=== PATIENT | male | born 1945 | race Caucasian/White ===

== ENCOUNTER → 2016-11-11 | Outpatient (CLI) | payer OTHER ==
[~2016-11-11] MED LIST: ASPCH81X PO; ASPIRIN PO; ATEN50TA8 PO; ATOR-54 PO; ATORVASTATIN PO; COEN1CAP7 PO; COENCAP9; GLUC250C PO; GLUCTAB7 PO; IBUP-1050 PO; ISOS30TA35 PO; ISOS30TA51 PO; LISI-725 PO; LISIPOW PO; METF-383 PO; METFORMIN PO; OMEG10007 PO
--- NOTE | 2016-11-11 14:04 | DIAGNOSTIC IMAGING REPORT ---
CHEST 2 VIEWS ROUTINE CLINICAL HISTORY: WHEEZING R06.2;TOBACCO USE Z72.0 COMPARISON STUDY: 02/08/2015 FINDINGS: There are postsurgical changes of a midline sternotomy. The heart is normal in size. There is no failure. There is no focal pulmonary consolidation. There are no pleural effusions.[ IMPRESSION: No active disease in the chest. Electronically signed by: Hao Craig M.D. 11/11/2016 2:02 PM Dictated Date/Time: 11/11/2016 2:01 PM
== END | disposition home or self-care (01) ==
LOC: C.RAD 13:30
PROVIDERS: ATTEND Family Medicine
DX: R06.2 Wheezing (principal); Z72.0 Tobacco use

== ENCOUNTER → 2016-12-09 | Day surgery (SDC) | payer OTHER ==
[2016-12-02 13:26] VITALS: Ht 172.7 cm; Wt 78.6 kg
[~2016-12-09] VITALS: Ht 172.7 cm; Wt 78.6 kg
[~2016-12-09] MED LIST changes: -ASPIRIN PO; -ATORVASTATIN PO; -COENCAP9; -GLUC250C PO; -ISOS30TA51 PO; +LIDOCAINE HCL 2% 2 ML VIAL (20MG/ML) ONE; -LISIPOW PO; -METFORMIN PO; +MIDAZOLAM HCL 1 MG/ML 2ML VIAL ONE; +ONDANSETRON INJ 2 MG/ML 2 ML VIAL ONE; +PROPOFOL IV EMULSION 10 MG/ML 20 ML VIAL IV ONE; +SODIUM CHLORIDE 0.9% 500ML 500 ML IV ONE
[2016-12-09 09:28] VITALS: TEMP 36.7
--- NOTE | 2016-12-09 09:37 | Endo History and Physical ---
History & Physical Date of Service: Dec 09, 2016. Chief Complaint: Screening Referring Physician: Miranda Esquivel History of Present Illness 71 yo CM who presents for screening colonoscopy. Past Medical History Diabetes, Hypertension Past Surgical History Hx Cardiac Surgery: Yes (HEART CATH-NO STENTS, CABG-3 VESSELS) Hx Internal Defibrillator: No Hx Pacemaker: No Hx Abdominal Surgery: No Hx of Implantable Prosthesis: No Hx Post-Op Nausea and Vomiting: No Hx Cancer Surgery: Yes (TOTAL PROSTATECTOMY) Hx Thoracic Surgery: No Hx Orthopedic: No Hx Urinary Tract Surgery: No Family History None Social History Smoking Status: Current Every Day Smoker Hx Substance Use: No Hx Alcohol Use: Yes (DAILY>TOTAL OF 3 SHOTS) Allergies Coded Allergies: Ragweed (Verified Allergy, Mild, Unknown, 12/04/15) Grass (Verified Allergy, Unknown, Unknown, 12/04/15) NO KNOWN DRUG ALLERGIES (Verified Allergy, Unknown, ., 12/02/16) Current Medications Reported Home Medications Medications Dose Route/Sig Max Daily Dose Days Date Category Imdur Ext Rel (Isosorbide Mononitrate) 30 Mg Tabcr 1 Tab PO QAM 12/09/16 Reported Glucophage (Metformin Hcl) 850 Mg Tab 850 Mg PO QAM 12/02/16 Reported Zestril (Lisinopril) 20 Mg Tab 20 Mg PO QAM 12/02/16 Reported Glucosamine Chondroitin (Kqtyqoumunv-Cvbbeaqqyfr-Blk C-) 1 Tab Tab 1 Tab PO QAM 12/02/16 Reported [place]-3 (Fish Oil) 1 Ea Cap 1 Cap PO QAM 12/02/16 Reported Coq10 (Coenzyme Q10 (Ubidecarenone)) 200 Mg Cap 1 Cap PO QAM 12/02/16 Reported Lipitor (Atorvastatin) 20 Mg Tab 20 Mg PO QAM 12/02/16 Reported Tenormin (Atenolol) 50 Mg Tab 50 Mg PO QAM 12/02/16 Reported Aspirin Chewable (Aspirin) 81 Mg Chew 81 Mg PO QAM 12/02/16 Reported Advil (Ibuprofen) 200 Mg Tab 200-600 Mg PO Q4H PRN 12/02/16 Reported Vital Signs Weight (Kilograms): 78.64 Height (Feet): 5 Height (Inches): 8 Date Time Temp Pulse Resp B/P Pulse Ox O2 Delivery O2 Flow Rate FiO2 12/09/16 09:28 36.7 55 20 132/64 96 Room Air Physical Exam General Appearance: WD/WN, no apparent distress Respiratory/Chest: Auscultation: breath sounds normal Cardiovascular: Heart Auscultation: RRR Abdomen: Bowel Sounds: normal Inspection & Palpation: soft, non-distended, no tenderness, guarding & rebound Assessment and Plan Assessment: 71 yo CM who presents for screening colonoscopy. Plan: Proceed with colonoscopy.
--- NOTE | 2016-12-09 10:13 | GI REPORT ---
Procedure Date: 12/09/2016 9:39 AM Procedure: Colonoscopy Indications: Screening for colorectal malignant neoplasm Medicines: Monitored Anesthesia Care Complications: No immediate complications. Estimated Blood Loss: Estimated blood loss: none. Procedure: Pre-Anesthesia Assessment: - Prior to the procedure, a History and Physical was performed, and patient medications and allergies were reviewed. The patient's tolerance of previous anesthesia was also reviewed. The risks and benefits of the procedure and the sedation options and risks were discussed with the patient. All questions were answered, and informed consent was obtained. Prior Anticoagulants: The patient has taken aspirin, last dose was 1 day prior to procedure. ASA Grade Assessment: III - A patient with severe systemic disease. After reviewing the risks and benefits, the patient was deemed in satisfactory condition to undergo the procedure. After I obtained informed consent, the scope was passed under direct vision. Throughout the procedure, the patient's blood pressure, pulse, and oxygen saturations were monitored continuously. The On-site loaner was introduced through the anus and advanced to the terminal ileum. The colonoscopy was performed without difficulty. The patient tolerated the procedure well. The quality of the bowel preparation was good. The terminal ileum, ileocecal valve, appendiceal orifice, and rectum were photographed. Findings: Three sessile polyps were found in the rectum, in the descending colon and in the transverse colon. The polyps were 5 to 10 mm in size. These polyps were removed with a hot snare. Resection was complete, but the polyp tissue was only partially retrieved. To prevent bleeding after the polypectomy, one hemostatic clip was successfully placed (MR conditional). There was no bleeding at the end of the procedure. Multiple small-mouthed diverticula were found in the entire colon. Non-bleeding internal hemorrhoids were found during retroflexion. The hemorrhoids were small. Impression: - Three 5 to 10 mm polyps in the rectum, in the descending colon and in the transverse colon, removed with a hot snare. Complete resection. Partial retrieval. Clip (MR conditional) was placed. - Diverticulosis in the entire examined colon. - Non-bleeding internal hemorrhoids. Recommendation: - Resume previous diet. - Continue present medications. - Repeat colonoscopy for surveillance based on pathology results. - Return to primary care physician as previously scheduled. Cihdi Reese DO 12/09/2016 10:11:57 AM This report has been signed electronically. Note Initiated On: 12/09/2016 9:39 AM I attest to the content of the Intraoperative Record and orders documented therein, exceptions below
[2016-12-09 10:40] VITALS: BP 137/63; PULSE 58; O2SAT 96
--- NOTE | 2016-12-09 10:51 | Anesthesiology Progress Note ---
Anesthesia Post Op Note Date & Time Dec 09, 2016 at 10:50 Vital Signs Pain Intensity: 0 Vital Signs Past 12 Hours Date Time Temp Pulse Resp B/P Pulse Ox O2 Delivery O2 Flow Rate FiO2 12/09/16 10:40 58 20 137/63 96 Room Air 12/09/16 10:25 56 20 122/64 96 Room Air 12/09/16 10:10 53 20 112/54 95 Room Air 12/09/16 09:28 36.7 55 20 132/64 96 Room Air Notes Mental Status: alert / awake / arousable, participated in evaluation Pt Amnestic to Procedure: Yes Nausea / Vomiting: adequately controlled Pain: adequately controlled Airway Patency, RR, SpO2: stable & adequate BP & HR: stable & adequate Hydration State: stable & adequate Anesthetic Complications: no major complications apparent
--- NOTE | 2016-12-09 10:56 | Discharge Instructions ---
Endoscopy Patient Instructions Date / Procedure(s) Performed Dec 09, 2016. Colonoscopy Allergy Information Coded Allergies: Ragweed (Verified Allergy, Mild, Unknown, 12/04/15) Grass (Verified Allergy, Unknown, Unknown, 12/04/15) NO KNOWN DRUG ALLERGIES (Verified Allergy, Unknown, ., 12/02/16) Discharge Date / Findings Dec 09, 2016. Colon polyps Diverticulosis Internal hemorrhoids Medication Instructions Stopped Medication(s): mETFORMIN OK to resume all medications today as prescribed. Reported Home Medications Medications Dose Route/Sig Max Daily Dose Days Date Category Imdur Ext Rel (Isosorbide Mononitrate) 30 Mg Tabcr 1 Tab PO QAM 12/09/16 Reported Glucophage (Metformin Hcl) 850 Mg Tab 850 Mg PO QAM 12/02/16 Reported Zestril (Lisinopril) 20 Mg Tab 20 Mg PO QAM 12/02/16 Reported Glucosamine Chondroitin (Vrpobmmtigw-Xkjlahsulik-Yiv C-) 1 Tab Tab 1 Tab PO QAM 12/02/16 Reported [place]-3 (Fish Oil) 1 Ea Cap 1 Cap PO QAM 12/02/16 Reported Coq10 (Coenzyme Q10 (Ubidecarenone)) 200 Mg Cap 1 Cap PO QAM 12/02/16 Reported Lipitor (Atorvastatin) 20 Mg Tab 20 Mg PO QAM 12/02/16 Reported Tenormin (Atenolol) 50 Mg Tab 50 Mg PO QAM 12/02/16 Reported Aspirin Chewable (Aspirin) 81 Mg Chew 81 Mg PO QAM 12/02/16 Reported Advil (Ibuprofen) 200 Mg Tab 200-600 Mg PO Q4H PRN 12/02/16 Reported Provider Instructions Activity Restrictions - No exercising or heavy lifting for 24 hours. - Do not drink alcohol the day of the procedure. - Do not drive a car or operate machinery until the day after the procedure. - Do not make any important decisions or sign important papers in 24 hours after the procedure. Following Day: - Return to full activity which may include returning to work/school. Diet Start your diet with liquids and light foods (jello, soup, juice, toast). Then eat your usual diet if not nauseated. Treatment For Common After Affects For mild abdominal pain, bloating, or excessive gas: - Rest - Eat lightly - Lie on right side Follow-Up Information Follow-up with Miranda Esquivel as scheduled Anesthesia Information What You Should Know You have had a procedure that required some medicine to reduce anxiety and discomfort. This treatment is called moderate sedation. After receiving the treatment, you may be sleepy, but you will be able to breathe on your own. The effects of the treatment may last for several hours. Follow these instructions along with Activity/Diet recommendations noted above: * Do NOT do anything where dizziness or clumsiness would be dangerous. * Rest quietly at home today, then you can be up and about tomorrow. * Have a responsible person stay with you the rest of today. * You may have had an I.V. today. If so, you may take the dressing off later today. Recommendations Call your doctor if: * Trouble breathing * Continuous vomiting for more than 24 hours * Temperature above 101 degrees * Severe abdominal pain or bloating * Pain not relieved by pain medicine ordered * There is increased drainage or redness from any incision * A large amount of rectal bleeding greater than 2-3 tablespoons. (If you had a polyp/s removed or have hemorrhoids, a small amount of blood - from the rectum is to be expected.) * You have any unanswered questions or concerns. IN THE EVENT OF A SERIOUS EMERGENCY, GO TO THE NEAREST EMERGENCY ROOM Your discharge instructions were prepared by provider Chidi Reese. Patient Instructions Signature Page Pola Lyon Patient (or Guardian) Signature/Date: I have read and understand the instructions given to me by my caregivers. Caregiver/RN/Doctor Signature/Date: The above-named patient and/or guardian has received patient instructions on this date. + Original Patient Signature Page (only) stays with chart. Please make copy for patient.
== END | disposition home or self-care (01) ==
LOC: C.GI 08:35
PROVIDERS: ATTEND Internal Medicine
DX: Z12.11 Encounter for screening for malignant neoplasm of colon (principal); D12.3 Benign neoplasm of transverse colon; D12.8 Benign neoplasm of rectum; K57.31 Diverticulosis of large intestine without perforation or abscess with bleeding; K64.8 Other hemorrhoids; E11.9 Type 2 diabetes mellitus without complications; I10 Essential (primary) hypertension; F17.210 Nicotine dependence, cigarettes, uncomplicated

== ENCOUNTER → 2017-06-24 | Outpatient (CLI) | payer OTHER ==
[~2017-06-24] MED LIST changes: -LIDOCAINE HCL 2% 2 ML VIAL (20MG/ML) ONE; -MIDAZOLAM HCL 1 MG/ML 2ML VIAL ONE; -ONDANSETRON INJ 2 MG/ML 2 ML VIAL ONE; -PROPOFOL IV EMULSION 10 MG/ML 20 ML VIAL IV ONE; -SODIUM CHLORIDE 0.9% 500ML 500 ML IV ONE
[2017-06-24 11:07] LABS: BLOOD UREA NITROGEN 21 mg/dl (7-18); BUN/CREATININE RATIO 20.7 (10-20); CREATININE 0.99 mg/dl (0.60-1.40)
== END | disposition home or self-care (01) ==
LOC: C.LAB 09:53
PROVIDERS: ATTEND Urology
DX: E11.9 Type 2 diabetes mellitus without complications (principal); C61 Malignant neoplasm of prostate

== ENCOUNTER → 2017-06-30 | Outpatient (CLI) | payer OTHER ==
[~2017-06-30] MED LIST changes: +OPTIRAY 320 IV PRN
--- NOTE | 2017-06-30 14:14 | DIAGNOSTIC IMAGING REPORT ---
BONE SCAN WHOLE BODY HISTORY: Prostate carcinoma C61 Prostate cancer latex [id number] RADIOTRACER: 25.6 mCi Tc-99m MDP STUDY/IMAGES: Planar anterior and posterior whole body imaging was performed 3 hours following the intravenous administration of radiotracer. COMPARISON: 12/03/2015 FINDINGS: Somewhat progressive increased activity at the inferior aspect of the L4 vertebral body. This presumably is degenerative although correlated routine films of the lumbar spine is suggested for confirmation. Mild degenerative activity of the sacroiliac joints. Activity characteristics in the axial and appendicular skeleton otherwise are unremarkable. Bilateral renal activity is present. IMPRESSION: 1. Interval increase in activity inferior endplate L4. 2. This statistically is most likely degenerative,, although routine films of the lumbar spine is suggested for confirmation. 3. Bone scan is otherwise negative. The above report was generated using voice recognition software. It may contain grammatical, syntax or spelling errors. Electronically signed by: Ryan Birmingham M.D. 06/30/2017 2:12 PM Dictated Date/Time: 06/30/2017 2:10 PM
--- NOTE | 2017-06-30 14:43 | DIAGNOSTIC IMAGING REPORT ---
ABD/PELVIS IV CONTRAST ONLY CT DOSE: 576.72 mGycm HISTORY: Prostate carcinoma PROSTATE CANCER FOLLOW UP, IV ONLY PER RADIOLOGIST (JR) TECHNIQUE: Multiaxial CT images of the abdomen and pelvis were performed following the use of intravenous contrast. A dose lowering technique was utilized adhering to the principles of ALARA. COMPARISON STUDY: 12/03/2015 FINDINGS: Lung bases remain clear, stones are present within the gallbladder lumen. Liver is uniform in appearance. Spleen pancreas are unremarkable. Kidneys show minimal cortical scarring but are negative for space-occupying lesion or hydronephrosis. The adrenal glands are unremarkable. Bowel pattern is nonobstructive. There is no significant abdominal pelvic or inguinal adenopathy. Operative changes consistent with a prior prostatectomy are present. Bladder is midline. The right upper thigh lipoma is noted and stable. Degenerative changes of the osseous structures are stable. No interval lytic or blastic process is appreciated. IMPRESSION: 1. Stable findings of a prior prostatectomy. 2. Gallstones unchanged. 3. Stable upper thigh lipoma considered benign. 4. No evidence for metastatic disease. No change from the prior study. The above report was generated using voice recognition software. It may contain grammatical, syntax or spelling errors. Electronically signed by: Ryan Birmingham M.D. 06/30/2017 2:42 PM Dictated Date/Time: 06/30/2017 2:37 PM
== END | disposition home or self-care (01) ==
LOC: C.NUCL 10:16
PROVIDERS: ATTEND Urology
DX: C61 Malignant neoplasm of prostate (principal)

== ENCOUNTER → 2017-07-05 | Outpatient (CLI) | payer OTHER ==
[~2017-07-05] MED LIST changes: -OPTIRAY 320 IV PRN
[2017-07-05 09:55] LABS: BLOOD UREA NITROGEN 19 mg/dl (7-18)
[2017-07-05 10:10] LABS: CREATININE 0.89 mg/dl (0.60-1.40)
== END | disposition home or self-care (01) ==
LOC: C.LABBC 08:31
PROVIDERS: ATTEND Urology
DX: E11.9 Type 2 diabetes mellitus without complications (principal); C61 Malignant neoplasm of prostate

== ENCOUNTER 2019-09-18 06:45 | Inpatient (IN) ==
[2019-09-18] MEDS ORDERED: SODIUM CHLORIDE 0.9% 1000ML 1,000 ML IV SCH ×2 (07:15→16:51)
[2019-09-18 07:40] LABS: Eosinophils # (auto) 0.02 K/uL (0-0.5); Eosinophils % (auto) 0.2 %; Immature Granulocytes # (auto) 0.05 K/uL (0.00-0.02); Immature Granulocytes % (auto) 0.4 %; Lymphocytes # (auto) 0.77 K/uL (1.2-3.4); Lymphocytes % (auto) 6.3 %; Mean Corpuscular Hemoglobin 34.7 pg (25-34); Mean Corpuscular Hgb Conc 34.9 g/dL (32-36); Mean Corpuscular Volume 99.5 fL (80-100); Mean Platelet Volume 11.3 fL (7.4-10.4); Monocytes # (auto) 1.67 K/uL (0.11-0.59); Monocytes % (auto) 13.7 %; Neutrophils # (auto) 9.64 K/uL (1.4-6.5); Neutrophils % (auto) 79.4 %; Platelet Count 189 K/uL (130-400); RDW Coefficient of Variation 12.4 % (11.5-14.5); RDW Standard Deviation 45.3 fL (36.4-46.3); Red Blood Count 4.32 M/uL (4.7-6.1); White Blood Count 12.15 K/uL (4.8-10.8)
[2019-09-18 08:22] LABS: Partial Thromboplastin Ratio 1.1; Partial Thromboplastin Time 28.8 Seconds (21.0-31.0); Prothrombin Time 10.6 Seconds (9.0-12.0)
[2019-09-18 08:24] LABS: Albumin Level 2.7 gm/dl (3.4-5.0); BUN Creatinine Ratio 23.8 (10-20); Bilirubin Direct 0.2 mg/dl (0-0.2); Calcium 9.3 mg/dl (8.5-10.1); Creatinine Clr Calc Pharmacy 66.3 ml/min; Est GFR (African American) 90.5; Est GFR (Non-African American) 78.1; Magnesium 2.1 mg/dl (1.8-2.4); Potassium 4.3 mmol/L (3.5-5.1)
[2019-09-18 08:27] LABS: Bilirubin,Total 0.8 mg/dl (0.2-1); Total Protein 7.1 gm/dl (6.4-8.2)
--- NOTE | 2019-09-18 08:48 | Ultrasound Report ---
US gallbladder CLINICAL HISTORY: 74 years-old Male presenting with RUQ pain. TECHNIQUE: Real-time grayscale and limited color Doppler ultrasound imaging of the abdomen limited to the right upper quadrant was performed. COMPARISON: CT from 06/30/2017. FINDINGS: Pancreas: Largely obscured due to overlying bowel gas. Liver: Normal echogenicity and echotexture. The liver measures 15.3 cm in maximal sagittal dimension. No sonographic evidence of hepatic mass. Main portal vein patent with normal directional flow. Biliary: No intrahepatic biliary ductal dilatation. Common bile duct measures up to 5 mm in diameter. Gallbladder: Gallbladder sludge within the significantly distended gallbladder lumen. Gallbladder wal l borderline thickened. No evidence of gallstones or pericholecystic fluid or inflammatory change. So nographic Acosta's sign positive. Right kidney: Normal in appearance without evidence of hydronephrosis. Ascites: None. Other: None. IMPRESSION: 1. Gallbladder sludge, gallbladder distention, borderline wall thickening, and a positive sonographi c Acosta's sign. Findings are highly suspicious for acute cholecystitis. This could be confirmed with HIDA scan. 2. No biliary ductal dilatation to suggest choledocholithiasis. The report will be called/faxed according to standard departmental protocol. Electronically signed by: Varun Gloria M.D. 09/18/2019 8:47 AM
--- NOTE | 2019-09-18 08:51 | XRay Report ---
PA CHEST RADIOGRAPH AND UPRIGHT AND SUPINE AP RADIOGRAPHS OF THE ABDOMEN CLINICAL HISTORY: Epigastric pain. COMPARISON STUDY: CT of the abdomen and pelvis June 30, 2017. Chest radiograph November 11, 2016. FINDINGS: Median sternotomy wires and mediastinal surgical clips are noted. There is no pneumothorax or pleural effusion. Minimal left basilar opacity favors atelectasis. Cardiomediastinal silhouette i s stable. There is no evidence for pulmonary edema. There is no free air. The bowel gas pattern is no rmal. A moderate amount of stool within the ascending colon and transverse colon is noted. Prostatect cheo clips are present. IMPRESSION: 1. No free air or evidence of bowel obstruction. 2. No acute cardiopulmonary findings. Electronically signed by: Pato Izquierdo M.D. 09/18/2019 8:49 AM
[2019-09-18] MEDS ORDERED: IOVERSOL 100ml IV PRN (09:24)
--- NOTE | 2019-09-18 09:48 | CT Scan Report ---
CT OF THE ABDOMEN AND PELVIS WITH CONTRAST CLINICAL HISTORY: Right lower quadrant mass. COMPARISON STUDY: CT of the abdomen and pelvis June 30, 2017. Right upper quadrant ultrasound pe rformed earlier today. TECHNIQUE: Following IV administration of 94 mL of Optiray-320, axial images of the abdomen and pelvi s were obtained from the lung bases to the proximal femurs. Images were reviewed in the axial, sagitt al, and coronal planes. IV contrast was administered without complication. Automated exposure contro l was utilized for the study. A dose lowering technique was utilized adhering to the principles of A BRIANNA. CT DOSE: 454.58 mGy.cm FINDINGS: The heart is moderately enlarged. No pneumatosis, free air or portal venous gas is present. The liver, spleen, adrenal glands, kidneys and pancreas are unremarkable. There is no biliary or whyte creatic ductal dilatation. There are numerous gallstones within the gallbladder. The gallbladder is m oderately distended. Moderate pericholecystic infiltration is noted. Gallbladder wall is thickened an d irregular. The anterior gallbladder wall may be disrupted toward the fundus. There is no evidence f or a bowel obstruction. There is colonic diverticulosis without evidence for acute diverticulitis. Th e appendix is normal. No lymphadenopathy is present. Prostate gland is surgically absent. A lipoma wi thin the right iliopsoas is incidentally noted. Trace fluid and a few loops of small bowel within the right inguinal hernia noted. IMPRESSION: Findings consistent with acute cholecystitis. Marked gallbladder wall irregularity raise s the possibility of gangrenous cholecystitis with possible disruption of the anterior wall. Electronically signed by: Pato Izquierdo M.D. 09/18/2019 9:47 AM
[2019-09-18] MEDS ORDERED: PIPERACILLIN/TAZOBACTAM 4.5 GM/120 ML BAG IV ONE (10:13)
[2019-09-18] MEDS ORDERED: PIPERACILL/TAZOBAC CONSULT ACTIVE PRN ×2 (10:13→17:12)
--- NOTE | 2019-09-18 11:52 | Surgery Consultation ---
Date of Consultation September 18, 2019 Assessment & Plan (1) Cholecystitis: This is a 74y M who presents to the [facility] on 09/18/19 with progressively worsening right upper quadrant pain since wednesday. Work up in the ED revealed a WBC of [address] a/p and RUQ US with findings concerning for acute cholecystitis, possible gangrenous cholecystitis, and concern for disruption of the anterior gb wall. Patient's LFT's and lipase are unremarkable. On exam patient is tender to palpation in the RUQ with + guarding. At this time we will recommend patient be kept NPO with IVF and started on IVF abx with admission under the medicine service. We will book patient for the OR for later today. Dr. Howard will be by to see patient and obtain surgical consent this afternoon. as above. clinically c/w acute cholecystitis. discussed risks/options. discussed bleeding/infection/dvt/pe/mi/bile leaks/bile duct injury /injury to other organs etc... questions answered. will proceed with lap /poss open cholecystectomy melissa. History of Present Illness History of Present Illness This is a 74y M with a PMH of CABG 20 years ago and prostate surgery who presents to the [facility] ED on 09/18/19 with complaints of right upper abdominal pain. Patient states that his pain started last Wednesday. He thought the pain was related to constipation so he took milk of magnesia on and had a small BM, then took some more on Wednesday which he says helped clear him out. Despite having BM's patient says that the pain has progressively worsened. He went to bed last night around 7:30pm, but the pain was constant, worse with lying down, and he started to feel delusional which prompted him to be evaluated in the ED today. Patient describes the pain as sharp and stabbing, currently rating it a 4/10. He last ate around 5pm yesterday, chicken and broiled potatoes, but he denies any association with food. The pain does not radiate and he has not felt pain like this before. He endorses + chills/sweats and abdominal distention. He denies nausea/vomiting, chest pain, or shortness of breath. In the ED patient underwent a CT a/p and RUQ US that revealed findings suspicious for acute cholecystitis with a marked irregularity of the gallbladder wall raising the possibility of gangrenous cholecystitis and c/f disruption of the anterior wall. WBC: 12.1, Tbili: 0.8, AST: 17, ALT: 19, Lipase: 61. Patient afebrile and VSS. Surgery was consulted for evaluation given gallbladder findings. Of note the patient states he drinks about 5-7 bourbons a night, however the past two days he only had two drinks each day as he was feeling unwell. Allergies Allergy/AdvReac Type Severity Reaction Status Date / Time ragweed pollen Allergy Mild Unknown Verified 09/18/19 07:30 grass pollen-perennial rye, Allergy Unknown Unknown Verified 09/18/19 07:30 standar No Known Drug Allergies Allergy Unknown . Verified 09/18/19 07:30 Home Medications Home Medications Medication Instructions Recorded Confirmed Type aspirin 81 mg PO QAM 09/18/19 09/18/19 History atenolol 50 mg PO QAM 09/18/19 09/18/19 History atorvastatin 20 mg PO HS 09/18/19 09/18/19 History coenzyme Q10 [CoQ-10] 100 mg PO QAM 09/18/19 09/18/19 History glucos sul 0TDy-uzi-beqox-C-Mn 1 cap PO QAM 09/18/19 09/18/19 History [Glucosamine Chondroitin] isosorbide mononitrate 30 mg PO QAM 09/18/19 09/18/19 History lisinopril 40 mg PO QAM 09/18/19 09/18/19 History metformin 750 mg PO QAM 09/18/19 09/18/19 History omega 5-wru-yik-fish oil [[place]-3] 1 cap PO QAM 09/18/19 09/18/19 History Patient History Medical History (Updated 09/18/19 @ 13:46 by Svetlana Horne MD) CAD (coronary artery disease) Cholecystitis (Acute) HTN (hypertension) Hyperlipidemia Type 2 diabetes mellitus Surgical History (Updated 09/18/19 @ 13:43 by Svetlana Horne MD) History of prostate surgery Hx of CABG Social History Preferred Language: Urdu Communication Ability: Effective Labor 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 Manager Required: No Beliefs That Will Affect Care: None Current Living Situation: Spouse Other Information That Helps Us Care for You: No Feels Safe at Home: Yes Safety Concerns: Feels Safe At This Time Smoking Status: Current every day smoker Tobacco Type: cigars ; Cigarettes Per Day: 6-8 cigars day ; Hx Alcohol Use: Yes Alcohol type: hard liquor Hx Substance Use: No Review of Systems Constitutional: + chills, + sweats and + anorexia Respiratory: no shortness of breath Cardiovascular: no chest pain Gastrointestinal: + abdominal pain (primarily of right upper quadrant, some right lower quadrant pain); no bloating, no nausea and no vomiting Physical Exam Physical Exam: awake/alert Constitutional: well developed and well nourished; no acute distress Respiratory: normal respiratory effort Gastrointestinal (Abdomen): Inspection/Auscultation: + abdomen distended (mild) and + abdominal surgical scar (midline infraumbilical scar from prior prostate surgery) Percussion/Palpation: + abdomen tender (in RUQ. no tenderness or mass felt in RLQ), + guarding (to palpation in RUQ) and abdomen soft Results & Data Vital Signs (Past 12 Hours) Vital Signs Temp Pulse Pulse Resp BP BP Pulse Ox 09/18/19 10:00 80 16 150/78 H 97 09/18/19 08:45 58 L 16 136/78 96 09/18/19 06:49 37.0 C 74 18 108/[address] OF THE ABDOMEN AND PELVIS WITH CONTRAST CLINICAL HISTORY: Right lower quadrant mass. COMPARISON STUDY: CT of the abdomen and pelvis June 30, 2017. Right upper quadrant ultrasound performed earlier today. TECHNIQUE: Following IV administration of 94 mL of Optiray-320, axial images of the abdomen and pelvis were obtained from the lung bases to the proximal femurs. Images were reviewed in the axial, sagittal, and coronal planes. IV contrast was administered without complication. Automated exposure control was utilized for the study. A dose lowering technique was utilized adhering to the principles of ALARA. CT DOSE: 454.58 mGy.cm FINDINGS: The heart is moderately enlarged. No pneumatosis, free air or portal venous gas is present. The liver, spleen, adrenal glands, kidneys and pancreas are unremarkable. There is no biliary or pancreatic ductal dilatation. There are numerous gallstones within the gallbladder. The gallbladder is moderately distended. Moderate pericholecystic infiltration is noted. Gallbladder wall is thickened and irregular. The anterior gallbladder wall may be disrupted toward the fundus. There is no evidence for a bowel obstruction. There is colonic diverticulosis without evidence for acute diverticulitis. The appendix is normal. No lymphadenopathy is present. Prostate gland is surgically absent. A lipoma within the right iliopsoas is incidentally noted. Trace fluid and a few loops of small bowel within the right inguinal hernia noted. IMPRESSION: Findings consistent with acute cholecystitis. Marked gallbladder wall irregularity raises the possibility of gangrenous cholecystitis with possible disruption of the anterior wall. Electronically signed by: Pato Izquierdo M.D. 09/18/2019 9:47 AM Dictated: 09/18/19 0937 Transcribed: [birth year]1937 PA CHEST RADIOGRAPH AND UPRIGHT AND SUPINE AP RADIOGRAPHS OF THE ABDOMEN CLINICAL HISTORY: Epigastric pain. COMPARISON STUDY: CT of the abdomen and pelvis June 30, 2017. Chest r adiograph November 11, 2016. FINDINGS: Median sternotomy wires and mediastinal surgical clips are noted. There is no pneumothorax or pleural effusion. Minimal left basilar opacity favors atelectasis. Cardiomediastinal silhouette is stable. There is no evidence for pulmonary edema. There is no free air. The bowel gas pattern is normal. A moderate amount of stool within the ascending colon and transverse colon is noted. Prostatectomy clips are present. IMPRESSION: 1. No free air or evidence of bowel obstruction. 2. No acute cardiopulmonary findings. Electronically signed by: Pato Izquierdo M.D. 09/18/2019 8:49 AM US gallbladder CLINICAL HISTORY: 74 years-old Male presenting with RUQ pain. TECHNIQUE: Real-time grayscale and limited color Doppler ultrasound imaging of the abdomen limited to the right upper quadrant was performed. COMPARISON: CT from 06/30/2017. FINDINGS: Pancreas: Largely obscured due to overlying bowel gas. Liver: Normal echogenicity and echotexture. The liver measures 15.3 cm in maximal sagittal dimension. No sonographic evidence of hepatic mass. Main portal vein patent with normal directional flow. Biliary: No intrahepatic biliary ductal dilatation. Common bile duct measures up to 5 mm in diameter. Gallbladder: Gallbladder sludge within the significantly distended gallbladder lumen. Gallbladder wall borderline thickened. No evidence of gallstones or pericholecystic fluid or inflammatory change. Sonographic Acosta's sign positive. Right kidney: Normal in appearance without evidence of hydronephrosis. Ascites: None. Other: None. IMPRESSION: 1. Gallbladder sludge, gallbladder distention, borderline wall thickening, and a positive sonographic Acosta's sign. Findings are highly suspicious for acute cholecystitis. This could be confirmed with HIDA scan. 2. No biliary ductal dilatation to suggest choledocholithiasis. The report will be called/faxed according to standard departmental protocol. Electronically signed by: Varun Gloria M.D. 09/18/2019 8:47 AM Dictated: 09/18/19 0845 Transcribed: 09/18/19 0845 PG Care Time/CCT Total # of Minutes Spent Total Time Spent with Patient: Total time spent is greater than 50% in coordination of care (as documented) at patient's floor/unit and/or counseling patient:
--- NOTE | 2019-09-18 11:58 | History & Physical Report ---
Date of Service September 18, 2019 Assessment & Plan (1) Cholecystitis: This is a 74y M who presents to the [facility] on 09/18/19 with progressively worsening right upper quadrant pain since wednesday. Work up in the ED revealed a WBC of [address] a/p and RUQ US with findings concerning for acute cholecystitis, possible gangrenous cholecystitis, and concern for disruption of the anterior gb wall. Patient's LFT's and lipase are unremarkable. On exam patient is tender to palpation in the RUQ with + guarding. At this time we will recommend patient be kept NPO with IVF and started on IVF abx with admission under the medicine service. We will book patient for the OR for later today. Dr. Howard will be by to see patient and obtain surgical consent this afternoon. (2) Gangrenous cholecystitis: Admit to inpatient Vital signs every 4 hours Keep n.p.o. for cholecystectomy. Consult surgery. Hold aspirin because of the imminent procedure. DVT prophylaxis: Hold medical anticoagulation due to imminent procedure and continue with SCDs and teds. Continue Zosyn Follow closely electrolytes and replenish as needed. Full code Present on Admission?: Yes (3) HTN (hypertension), benign: Continue home medicine. Appears to be stable at this time. Hold aspirin 81 p.o. every morning due to imminent surgical procedure. Continue atenolol 50 mg p.o. every morning, continue coenzyme Q 1000 mg p.o. every morning continue isosorbide mononitrate 30 mg p.o. every morning, continue lisinopril 40 mg p.o. every morning. Lipid panel pending. Present on Admission?: Yes (4) Hyperlipemia: Continue fish oil 1 tablet p.o. every morning and atorvastatin 20 mg p.o. nightly. Present on Admission?: Yes (5) Diabetes mellitus: Hold metformin 150mg p.o. every morning since patient is going to be hospitalized prone to hypoglycemia and possibly will need additional radiological study with contrast to prevent acute kidney injury. A1c pending. Glycemic control per pharmacy. Present on Admission?: Yes History of Present Illness Chief Complaint: Right upper quadrant abdominal pain. Primary Care Provider: SAMMY Webber Patient is a 74 years old male with past medical history of hypertension, hyperlipidemia, diabetes mellitus, coronary artery disease with bypass surgery done 20 years ago who presented with right upper quadrant abdominal pain started yesterday night and continuing during the day and appears to bother him as a discomfort especially after fatty food. Patient denies fever, chills, chest pain, shortness of breath, frequency, urgency, hematemesis, dysuria, hematuria. Labs are reviewed: WBC is 12.15, hemoglobin 15, hematocrit 43, platelets 189, PT 10.6, INR 1, APTT 28.8, sodium 134, potassium 4.3, chloride 102, BUN 23, creatinine 0.96, GFR 78.1, magnesium 2.1, lipase 61, Albumin 2.7. Ultrasound of the right upper quadrant: Gallbladder sludge, gallbladder distention, borderline wall thickness and positive sonographic Acosta's sign. Findings are highly suspicious for acute cholecystitis. This could be confirmed with HIDA scan. No biliary ductal dilatation to suggest choledocholithiasis. CT scan showed acute cholecystitis with markedly gallbladder wall irregularities raising the possibility of gangrenosa cholecystitis with possible disruption of the atrial wall. Decision was made to admit patient to observation for immediate surgical procedure and cholecystectomy. Discussed with surgery. Allergies Allergy/AdvReac Type Severity Reaction Status Date / Time ragweed pollen Allergy Mild Unknown Verified 09/18/19 07:30 grass pollen-perennial rye, Allergy Unknown Unknown Verified 09/18/19 07:30 standar No Known Drug Allergies Allergy Unknown . Verified 09/18/19 07:30 Home Medications Home Medications Medication Instructions Recorded Confirmed Type aspirin 81 mg PO QAM 09/18/19 09/18/19 History atenolol 50 mg PO QAM 09/18/19 09/18/19 History atorvastatin 20 mg PO HS 09/18/19 09/18/19 History coenzyme Q10 [CoQ-10] 100 mg PO QAM 09/18/19 09/18/19 History glucos sul 8ALt-tou-lzbex-C-Mn 1 cap PO QAM 09/18/19 09/18/19 History [Glucosamine Chondroitin] isosorbide mononitrate 30 mg PO QAM 09/18/19 09/18/19 History lisinopril 40 mg PO QAM 09/18/19 09/18/19 History metformin 750 mg PO QAM 09/18/19 09/18/19 History omega 4-vmv-aiv-fish oil [[place]-3] 1 cap PO QAM 09/18/19 09/18/19 History Past Med/Surg History Medical History CAD (coronary artery disease) Cholecystitis (Acute) HTN (hypertension) Hyperlipidemia Type 2 diabetes mellitus Surgical History History of prostate surgery Hx of CABG Social History Preferred Language: Albanian Communication Ability: Effective Glaze Carrier Required: No Beliefs That Will Affect Care: None Current Living Situation: Spouse Other Information That Helps Us Care for You: No Feels Safe at Home: Yes Safety Concerns: Feels Safe At This Time Smoking Status: Current every day smoker Tobacco Type: cigars ; Cigarettes Per Day: 6-8 cigars day ; Hx Alcohol Use: Yes Alcohol type: hard liquor Hx Substance Use: No Review of Systems Constitutional: + chills, + sweats and + anorexia Respiratory: no shortness of breath Gastrointestinal: + abdominal pain (primarily of right upper quadrant, some right lower quadrant pain); no bloating, no nausea and no vomiting Physical Exam Constitutional: WD/WN, vitals as above well developed and + ill appearing Eyes: PERRL, conjunctivae normal, anicteric sclerae ENMT: external ear and nose normal, oropharynx normal Neck: trachea midline, no thyromegaly Respiratory: normal respiratory effort Auscultation: + wheezes Cardiovascular: RRR, no murmur, no edema Chest (Breasts): normal inspection/palpation of breasts Gastrointestinal (Abdomen): Inspection/Auscultation: normal bowel sounds Percussion/Palpation: abdomen soft Positive Acosta sign. Right upper quadrant pain radiating to his back. Musculoskeletal: no cyanosis or clubbing, extremities motor strength 5/5 Skin: no rashes, warm and dry Neurologic: patellar DTR's 2+ bilat, sensation intact Psychiatric: A+Ox3, euthymic affect Lymphatic: no cervical or axillary lymphadenopathy Results & Data Vital Signs (Past 12 Hours) Vital Signs Temp Pulse Pulse Resp BP BP Pulse Ox 09/18/19 10:00 80 16 150/78 H 97 09/18/19 08:45 58 L 16 136/78 96 09/18/19 06:49 37.0 C 74 18 108/64 96 Code Status & VTE Plan Code Status Full code VTE Prophylaxis Plan VTE Prophylaxis will be ordered: Yes PG Care Time/CCT Total # of Minutes Spent Total Time Spent with Patient: Total time spent is greater than 50% in coordination of care (as documented) at patient's floor/unit and/or counseling patient:
[2019-09-18] MEDS ORDERED: MIDAZOLAM HCL 1 MG/ML 2ML VIAL ONE (13:25)
[2019-09-18] MEDS ORDERED: fentaNYL citrate 100 MCG/2 ML VIAL ONE ×2 (13:26→15:53)
--- NOTE | 2019-09-18 13:27 | Emergency Department Note ---
Entered by Bhavna Grove acting as a scribe for Panchito Schmidt History of Present Illness General Chief complaint: Abdominal Pain Stated complaint: ABDOMINAL PAIN Time Seen by Provider: 09/18/19 07:01 Source: patient Mode of arrival: ambulatory Limitations: no limitations History of Present Illness Onset (ago): day(s) 5 Location: abdomen Radiation: non-radiation Pain Consistency: + constant Maximum Pain Intensity: 5 Current Pain Intensity: 5 Relieved By: + none Exacerbated By: + none Associated symptoms: + nausea/vomiting (+nausea, -vomiting) and + other (+diarrhea, -hematuria, -dysuria, -hematochezia); no chest pain, no fever/chills and no shortness of breath Treatments prior to arrival: other (Milk of Magnesia) The patient is a 74 year old male who presents to the ED with complaints of abdominal pain for the past 5 days. He rates his discomfort as a 5/10 in severity. His pain is located epigastric and right upper quadrant area. He thought his pain was initially from constipation, so he took Milk of Magnesia the first day he experienced the pain. He then has a small bowel movement, and the next day when he took more MOM, he experienced diarrhea. He states his pain has continued to worsen each day. He denies any hematuria or dysuria. He has previously undergone prostate surgery. He admits to nausea but has not vomited. He denies any hematochezia, chest pain or shortness of breath. He denies any fevers. The patient reports his pain does not seem to be worsened by eating. He notes he used to drink "5 or 6 glasses of Green [employer] a day", but yesterday had 2 glasses, as the pain "has caused me to slack off a little bit". Patient also reports she was having pain over a "lump" that he is reported in his right groin for the last 5 years. Home Medications Home Medications Medication Instructions Recorded Confirmed Type aspirin 81 mg PO QAM 09/18/19 09/18/19 History atenolol 50 mg PO QAM 09/18/19 09/18/19 History atorvastatin 20 mg PO HS 09/18/19 09/18/19 History coenzyme Q10 [CoQ-10] 100 mg PO QAM 09/18/19 09/18/19 History glucos sul [id number]-lno-mlaeg-C-Mn 1 cap PO QAM 09/18/19 09/18/19 History [Glucosamine Chondroitin] isosorbide mononitrate 30 mg PO QAM 09/18/19 09/18/19 History lisinopril 40 mg PO QAM 09/18/19 09/18/19 History metformin 750 mg PO QAM 09/18/19 09/18/19 History omega 8-kkj-tfq-fish oil [Kuna-3] 1 cap PO QAM 09/18/19 09/18/19 History Allergies Allergy/AdvReac Type Severity Reaction Status Date / Time ragweed pollen Allergy Mild Unknown Verified 09/18/19 07:30 grass pollen-perennial rye, Allergy Unknown Unknown Verified 09/18/19 07:30 standar No Known Drug Allergies Allergy Unknown . Verified 09/18/19 07:30 Past Med/Surg History Medical History Cholecystitis Surgical History History of prostate surgery Social History Preferred Language: Czech Communication Ability: Effective Rhinologist Required: No Beliefs That Will Affect Care: None Current Living Situation: Spouse Other Information That Helps Us Care for You: No Feels Safe at Home: Yes Safety Concerns: Feels Safe At This Time Smoking Status: Current every day smoker Tobacco Type: cigars ; Cigarettes Per Day: 6-8 cigars day ; Hx Alcohol Use: Yes Alcohol type: hard liquor Hx Substance Use: No Review of Systems See HPI for pertinent positives & negatives. and A total of 10 systems reviewed and were otherwise negative Physical Exam Vital Signs Vital Signs - 24 hr 09/18/19 06:49 09/18/19 08:45 09/18/19 10:00 Temperature 37.0 C Temperature Source Oral Pulse Rate 74 Pulse Rate [Apical] 58 L 80 Pulse Rhythm [Apical] Regular Respiratory Rate 18 16 16 Respiratory Effort / Characteristics Non-Labored Spontaneous Respiratory Depth Normal Blood Pressure 108/64 Blood Pressure [Left Arm] 136/78 150/78 H Blood Pressure Mean 78 Blood Pressure Mean [Left Arm] 97 102 Pulse Oximetry 96 96 97 Oxygen Delivery Method Room Air Room Air Room Air Sepsis Action Taken by Nursing No Action Required GENERAL: He is oriented to person, place, and time. He appears well-developed and well-nourished. He does not appear distressed. HENT: Exam performed. - Head: Normocephalic and atraumatic. - Right Ear: External ear normal. No mastoid tenderness. - Left Ear: External ear normal. No mastoid tenderness. - Mouth/Throat: The oropharynx is clear and moist. No trismus in the jaw. No dental abscesses or uvula swelling. No oropharyngeal exudate or tonsillar abscesses. EYES: Conjunctivae and EOM are normal. Pupils are equal, round, and reactive to light. Right eye exhibits no discharge. Left eye exhibits no discharge. No scleral icterus. NECK: Normal range of motion. Neck supple. No JVD present. No spinous process tenderness present. No carotid bruit present. No rigidity. No tracheal deviation and normal range of motion present. No Brudzinski's sign and no Kernig's sign noted. CV: Normal rate, regular rhythm, normal heart sounds and intact distal pulses. There is no peripheral edema. Palpable radial pulses bue. PULM/CHEST: Effort normal and breath sounds normal. No respiratory distress. No stridor. He has no wheezes. He has no rales. - Chest Wall: He exhibits no tenderness. ABD: The abdomen is soft. Bowel sounds are normal. He has no distension. Diffuse pain on palpation of abdomen. Hepatomegaly. Right inguinal mass that was tender to touch. There is no rebound, no guarding, Acosta's sign positive and no tenderness at McBurney's point. Rovsig negative. MUSC/SKEL: Normal range of motion. There is no peripheral edema, tenderness or deformity. LYMPH: No cervical adenopathy. NEURO: He is alert and oriented to person, place, and time. He has normal strength. No cranial nerve deficit or sensory deficit. Coordination and gait normal. GCS eye subscore is 4. GCS verbal subscore is 5. GCS motor subscore is 6. Cerebellar tests wnl. SKIN: Skin is warm and dry. He is not diaphoretic. PSYCH: He has a normal mood and affect. Behavior is normal. Judgment and thought content normal. Course Course 0703: The patient was evaluated in room B10 and a complete history and physical were performed. 1010: Vital signs are stable. On repeat abdominal exam, the patient is still having pain on palpation of the abdomen, specifically the RUQ. Labs are within normal limits. Imaging is concerning for possible acute cholecystitis, with po ssible disruption of the anterior wall and gangrene. I have paged general surgery. 1100: I have still not received a call back from general surgery despite multiple pages. We will attempt paging again. 1107: I discussed the patients case with Dr. Howard, General Surgery. They recommend a hospital medicine evaluation and he will see the patient in consult. We will with patient receiving Zosyn in the emergency department. 1113: I [facility] the [facility] The patient will be further evaluated. Consultations Consultation #1: I discussed the patients case with Dr. Howard, General Surgery. They recommend a hospital medicine evaluation and he will see the patient in consult. Time: 11:07 Consultation #2: I discussed the patients case with Dr. Quiros [facility]. The patient will be further evaluated. Time: 11:13 Administered Medications Sodium Chloride (Nss 1000ml) 1,000 mls @ 80 mls/hr IV .[id number] LIN Stop: 10/18/19 07:14 Last Admin: 09/18/19 07:37 Dose: 80 mls/hr Documented by: [id number] Piperacillin Sod/Tazobactam Sod (Zosyn) 4.5 gm in 120 mls @ 30 mls/hr IV NOW ONE Stop: 09/18/19 14:12 Last Admin: 09/18/19 10:18 Dose: 30 mls/hr Documented by: [id number] Ioversol (Optiray 320 100ml) 94 ml IV ONCE PRN PRN Reason: Interaction Checking Stop: 09/22/19 09:23 Last Admin: 09/18/19 09:25 Dose: 94 ml Documented by: [id number] Medical Decision Making Medical Records Attestation: I reviewed the patient's medical records. Home Medications Current Medication List: was personally reviewed by me Laboratory Data Attestation: I reviewed the patient's lab results. Result diagrams: 09/18/19 07:10 09/18/19 07:54 Lab Results 09/18/19 09/18/19 09/18/19 Range/Units 07:10 07:10 07:10 WBC 12.15 H (4.8-10.8) K/uL RBC 4.32 L (4.7-6.1) M/uL Hgb 15.0 (14.0-18.0) g/dL Hct 43.0 (42-52) % MCV 99.5 (80-100) fL MCH 34.7 H (25-34) pg MCHC 34.9 (32-36) g/dL RDW Std Deviation 45.3 (36.4-46.3) fL RDW Coeff of Shad 12.4 (11.5-14.5) % Plt Count 189 (130-400) K/uL MPV 11.3 H (7.4-10.4) fL Immature Gran % (Auto) 0.4 % Neut % (Auto) 79.4 % Lymph % (Auto) 6.3 % [place] % (Auto) 13.7 % Eos % (Auto) 0.2 % Baso % (Auto) 0.0 % Immature Gran # (Auto) 0.05 H (0.00-0.02) K/uL Neut # (Auto) 9.64 H (1.4-6.5) K/uL Lymph # (Auto) 0.77 L (1.2-3.4) K/uL [place] # (Auto) 1.67 H (0.11-0.59) K/uL Eos # (Auto) 0.02 (0-0.5) K/uL Baso # (Auto) 0.00 (0-0.2) K/uL PT Cancelled INR Cancelled APTT Cancelled PTT Ratio Cancelled Sodium Cancelled Potassium Cancelled Chloride Cancelled Carbon Dioxide Cancelled Anion Gap Cancelled BUN Cancelled Creatinine Cancelled Est Cr Clr Drug Dosing Cancelled Est GFR ( Amer) Cancelled Est GFR (Non-Af Amer) Cancelled BUN/Creatinine Ratio Cancelled Glucose Cancelled Calcium Cancelled Magnesium Cancelled Total Bilirubin Cancelled Direct Bilirubin Cancelled AST Cancelled ALT Cancelled Alkaline Phosphatase Cancelled Total Protein Cancelled Albumin Cancelled Lipase Cancelled 09/18/19 09/18/19 Range/Units 07:54 07:54 WBC (4.8-10.8) K/uL RBC (4.7-6.1) M/uL Hgb (14.0-18.0) g/dL Hct (42-52) % MCV (80-100) fL MCH (25-34) pg MCHC (32-36) g/dL RDW Std Deviation (36.4-46.3) fL RDW Coeff of Shad (11.5-14.5) % Plt Count (130-400) K/uL MPV (7.4-10.4) fL Immature Gran % (Auto) % Neut % (Auto) % Lymph % (Auto) % [place] % (Auto) % Eos % (Auto) % Baso % (Auto) % Immature Gran # (Auto) (0.00-0.02) K/uL Neut # (Auto) (1.4-6.5) K/uL Lymph # (Auto) (1.2-3.4) K/uL [place] # (Auto) (0.11-0.59) K/uL Eos # (Auto) (0-0.5) K/uL Baso # (Auto) (0-0.2) K/uL PT 10.6 INR 1.0 APTT 28.8 PTT Ratio 1.1 Sodium 134 L Potassium 4.3 Chloride 102 Carbon Dioxide 24 Anion Gap 8.0 BUN 23 H Creatinine 0.96 Est Cr Clr Drug Dosing 66.3 Est GFR ( Amer) 90.5 Est GFR (Non-Af Amer) 78.1 BUN/Creatinine Ratio 23.8 H Glucose 132 H Calcium 9.3 Magnesium 2.1 Total Bilirubin 0.8 Direct Bilirubin 0.2 AST 17 ALT 19 Alkaline Phosphatase 87 Total Protein 7.1 Albumin 2.7 L Lipase 61 L Imaging Data Radiologist's Impression: Radiology results as stated below per my review and the radiologist's interpretation: US gallbladder CLINICAL HISTORY: 74 years-old Male presenting with RUQ pain. TECHNIQUE: Real-time grayscale and limited color Doppler ultrasound imaging of the abdomen limited to the right upper quadrant was performed. COMPARISON: CT from 06/30/2017. FINDINGS: Pancreas: Largely obscured due to overlying bowel gas. Liver: Normal echogenicity and echotexture. The liver measures 15.3 cm in maximal sagittal dimension. No sonographic evidence of hepatic mass. Main portal vein patent with normal directional flow. Biliary: No intrahepatic biliary ductal dilatation. Common bile duct measures up to 5 mm in diameter. Gallbladder: Gallbladder sludge within the significantly distended gallbladder lumen. Gallbladder wall borderline thickened. No evidence of gallstones or pericholecystic fluid or inflammatory change. Sonographic Acosta's sign positive. Right kidney: Normal in appearance without evidence of hydronephrosis. Ascites: None. Other: None. IMPRESSION: 1. Gallbladder sludge, gallbladder distention, borderline wall thickening, and a positive sonographic Acosta's sign. Findings are highly suspicious for acute cholecystitis. This could be confirmed with HIDA scan. 2. No biliary ductal dilatation to suggest choledocholithiasis. The report will be called/faxed according to standard departmental protocol. Electronically signed by: Varun Gloria M.D. 09/18/2019 8:47 AM PA CHEST RADIOGRAPH AND UPRIGHT AND SUPINE AP RADIOGRAPHS OF THE ABDOMEN CLINICAL HISTORY: Epigastric pain. COMPARISON STUDY: CT of the abdomen and pelvis June 30, 2017. Chest radiograph November 11, 2016. FINDINGS: Median sternotomy wires and mediastinal surgical clips are noted. There is no pneumothorax or pleural effusion. Minimal left basilar opacity favors atelectasis. Cardiomediastinal silhouette is stable. There is no evidence for pulmonary edema. There is no free air. The bowel gas pattern is normal. A moderate amount of stool within the ascending colon and transverse colon is noted. Prostatectomy clips are present. IMPRESSION: 1. No free air or evidence of bowel obstruction. 2. No acute cardiopulmonary findings. Electronically signed by: Pato Izquierdo M.D. 09/18/2019 8:[address] OF THE ABDOMEN AND PELVIS WITH CONTRAST CLINICAL HISTORY: Right lower quadrant mass. COMPARISON STUDY: CT of the abdomen and pelvis June 30, 2017. Right upper quadrant ultrasound performed earlier today. TECHNIQUE: Following IV administration of 94 mL of Optiray-320, axial images of the abdomen and pelvis were obtained from the lung bases to the proximal femurs. Images were reviewed in the axial, sagittal, and coronal planes. IV contrast was administered without complication. Automated exposure control was utilized for the study. A dose lowering technique was utilized adhering to the principles of ALARA. CT DOSE: 454.58 mGy.cm FINDINGS: The heart is moderately enlarged. No pneumatosis, free air or portal venous gas is present. The liver, spleen, adrenal glands, kidneys and pancreas are unremarkable. There is no biliary or pancreatic ductal dilatation. There are numerous gallstones within the gallbladder. The gallbladder is moderately distended. Moderate pericholecystic infiltration is noted. Gallbladder wall is thickened and irregular. The anterior gallbladder wall may be disrupted toward the fundus. There is no evidence for a bowel obstruction. There is colonic diverticulosis without evidence for acute diverticulitis. The appendix is normal. No lymphadenopathy is present. Prostate gland is surgically absent. A lipoma within the right iliopsoas is incidentally noted. Trace fluid and a few loops of small bowel within the right inguinal hernia noted. IMPRESSION: Findings consistent with acute cholecystitis. Marked gallbladder wall irregularity raises the possibility of gangrenous cholecystitis with possible disruption of the anterior wall. Electronically signed by: Pato Izquierdo M.D. 09/18/2019 9:47 AM ECG Data Attestation: I personally reviewed and interpreted this ECG as follows: Indication: + abdominal pain Rate (beats per minute): 69 Rhythm: + sinus rhythm ECG Intervals/blocks: + Normal QRS and + Normal QT ECG ST segments: no ST depression and no ST elevation ECG Findings: + PVCs and + Other (NH interval within normal limits) Blood Pressure Blood Pressure Findings: Elevated blood pressure Blood Pressure Disposition: further management by hospitalist MDM Narrative 0703: The patient was evaluated in room B10 and a complete history and physical were performed. 1010: Vital signs are stable. On repeat abdominal exam, the patient is still having pain on palpation of the abdomen, specifically the RUQ. Labs are within normal limits. Imaging is concerning for possible acute cholecystitis, with possible disruption of the anterior wall and gangrene. I have paged general surgery. 1100: I have still not received a call back from general surgery despite multiple pages. We will attempt paging again. 1107: I discussed the patients case with Dr. Howard, General Surgery. They recommend a hospital medicine evaluation and he will see the patient in consult. We will with patient receiving Zosyn in the emergency department. 1113: I discussed the patients case with Dr. Qurios, [facility] Hospitalist. The patient will be further evaluated. Impression & Plan Gangrenous cholecystitis Discharge Plan Visit Data *Final* Discharge Date/Time: 09/18/19 13:15 Chief Complaint: Abdominal Pain Stated Complaint: ABDOMINAL PAIN ED Provider: Panchito Schmidt Discharge Problem: Gangrenous cholecystitis Patient Disposition: Being Evaluated by Hospitalist Discharge Instructions Interventions: ED Discharge Assessment Last Done: 09/18/19 12:26 The scribe's documentation has been prepared under my direction and personally reviewed by me in its entirety. I confirm that the note above accurately reflects all work, treatment, procedures, and medical decision making performed by me.
[2019-09-18] MEDS ORDERED: BUPIVACAINE 0.5 % 5 MG/1 ML MPF 30ML VIAL ONE (13:31)
[2019-09-18] MEDS ORDERED: EPINEPHrine INJ 1 MG/ML AMP ONE (13:31)
--- NOTE | 2019-09-18 13:40 | Anesthesiology Consultation ---
Date of Service September 18, 2019 Assessment & Plan (1) Encounter for pre-operative examination: Chart Review Chart Review: Acceptable Risk for Surgery and Patient NOT seen in Pre Admission Testing Consults Requested none ASA ASA3 Proposed Anesthesia Anesthesia Type: General Risk / Benefits Reviewed With: PT / POA / Parent / Guardian, Accepts Plan and Informed Consent Obtained History Surgery Operation Date: 09/18/19 09:40 Proposed Procedures p Laparoscopic Cholecystectomy, Possible Cholangiogram - Karl Howard, DO Height/Weight Height: 5 ft 8 in Weight: 77.7 kg Allergies Allergy/AdvReac Type Severity Reaction Status Date / Time ragweed pollen Allergy Mild Unknown Verified 09/18/19 07:30 grass pollen-perennial rye, Allergy Unknown Unknown Verified 09/18/19 07:30 standar No Known Drug Allergies Allergy Unknown . Verified 09/18/19 07:30 Medications Home Medications Medication Instructions Recorded Confirmed Last Taken aspirin 81 mg PO QAM 09/18/19 09/18/19 09/17/19 atenolol 50 mg PO QAM 09/18/19 09/18/19 09/17/19 atorvastatin 20 mg PO HS 09/18/19 09/18/19 09/17/19 coenzyme Q10 [CoQ-10] 100 mg PO QAM 09/18/19 09/18/19 09/17/19 glucos sul 9QWi-fvr-sgwsp-C-Mn 1 cap PO QAM 09/18/19 09/18/19 09/17/19 [Glucosamine Chondroitin] isosorbide mononitrate 30 mg PO QAM 09/18/19 09/18/19 09/17/19 lisinopril 40 mg PO QAM 09/18/19 09/18/19 09/17/19 metformin 750 mg PO QAM 09/18/19 09/18/19 09/17/19 omega 4-juz-nrq-fish oil [Leonard-3] 1 cap PO QAM 09/18/19 09/18/19 09/17/19 Active Medications Generic Name Dose Route Start Last Admin Trade Name Freq PRN Reason Stop Dose Admin Sodium Chloride 1,000 mls @ 80 mls/hr 09/18/19 07:15 09/18/19 07:37 Nss 1000ml IV 10/18/19 07:14 80 mls/hr .[id number] LIN Administration Piperacillin Sod/Tazobactam Sod 4.5 gm in 120 mls @ 30 mls/hr 09/18/19 10:13 09/18/19 10:18 Zosyn IV 09/18/19 14:12 30 mls/hr NOW ONE Administration Ioversol 94 ml 09/18/19 09:24 09/18/19 09:25 Optiray 320 100ml IV 09/22/19 09:23 94 ml ONCE PRN Administration Interaction Checking NPO Date Last Intake of Fluids: 09/17/19 Time Last Intake of Fluids: 17:00 Date Last Intake of Solids: 09/17/19 Time Last Intake of Solids: 17:00 Past Medical History Medical History (Updated 09/18/19 @ 13:46 by Svetlana Horne MD) CAD (coronary artery disease) Cholecystitis (Acute) HTN (hypertension) Hyperlipidemia Type 2 diabetes mellitus Exercise / Class Metabolic Activity II 4-5 Yardwork/Stairs/Walk up hill Negative for chest pain or shortness of breath. Past Surgical History Surgical History (Updated 09/18/19 @ 13:43 by Svetlana Horne MD) History of prostate surgery Hx of CABG Past Anesthesia History No Hx of Anesthesia Complications History of PONV No Hx of PONV Social History Smoking Status: Current every day smoker tobacco type: cigars Smoking cigarettes per day: 6-8 cigars day Hx Alcohol Use: Yes Alcohol type: hard liquor alcohol intake frequency: 3 or more drinks per day Hx Substance Use: No Review of Systems positive for abdominal pain positive for nausea - denies vomiting Physical Exam Vital Signs Last Vital Signs Temp 38.2 C H 09/18/19 13:19 Pulse 66 09/18/19 13:19 Resp 20 09/18/19 13:19 BP 137/59 L 09/18/19 13:19 Pulse Ox 95 09/18/19 13:19 Constitutional not obese ENMT Mouth: no TMJ abnormality and oral opening not small Thyromental Distance: > or= 3.5 Finger Breadths Mallampati Class: III Mouth / Teeth: 1. Many chipped teeth Neck normal visual inspection; neck extension not limited Respiratory normal respiratory effort Auscultation: lungs clear to auscultation bilaterally Cardiovascular Rate/Rhythm: regular rate and regular rhythm Heart Sounds: no murmur Vessels: no carotid bruit Neurologic moves all extremities Psychiatric Orientation: alert and oriented x 3 Testing Laboratory Results 09/18/19 07:10 09/18/19 07:54 PT 10.6 Seconds (9.0-12.0) 09/18/19 07:54 INR 1.0 (0.9-1.1) 09/18/19 07:54 APTT 28.8 Seconds (21.0-31.0) 09/18/19 07:54 Electrocardiogram Date: 09/18/19 Findings: + NSR @ (69) PVCs, possible LAE
[2019-09-18] MEDS ORDERED: ONDANSETRON INJ 2 MG/ML 2 ML VIAL IV PRN ×2 (13:41→16:51)
[2019-09-18] MEDS ORDERED: fentaNYL citrate 100 MCG/2 ML VIAL IV PRN (13:41)
[2019-09-18] MEDS ORDERED: ePHEDrine sulfate 50 MG/ML AMP IV PRN (13:41)
[2019-09-18] MEDS ORDERED: HYDROmorphone INJ 2 MG/ML SYR/VIAL IV PRN (13:41)
[2019-09-18] MEDS ORDERED: ATROPINE SULFATE 0.1 MG/ML 10ML SYR IV PRN (13:41)
[2019-09-18] MEDS ORDERED: CEFAZOLIN 2000MG 2,000 MG/15 ML SYR IV ONE (14:03)
[2019-09-18] MEDS ORDERED: ePHEDrine sulfate 50 MG/ML AMP ONE (14:34)
[2019-09-18] MEDS ORDERED: WATER, STERILE FOR INJ 10 ML VIAL ONE (14:34)
[2019-09-18] MEDS ORDERED: PROPOFOL IV EMULSION 10 MG/ML 20 ML VIAL IV ONE (15:20)
[2019-09-18] MEDS ORDERED: GLYCOPYRROLATE 0.2 MG/ML VIAL ONE (15:20)
[2019-09-18] MEDS ORDERED: NEOSTIGMINE METHYLSULFATE 5 MG/5 ML SYR ONE (15:20)
[2019-09-18] MEDS ORDERED: LIDOCAINE HCL 2% 2 ML VIAL/AMP(20MG/ML) INFIL ONE (15:20)
[2019-09-18] MEDS ORDERED: ONDANSETRON INJ 2 MG/ML 2 ML VIAL ONE (15:20)
[2019-09-18] MEDS ORDERED: ROCURONIUM BROMIDE 10 MG/ML 5 ML VIAL ONE (15:20)
--- NOTE | 2019-09-18 16:07 | Operative Report ---
PG Post Operative Report Pre & Post Diagnosis Operation Date: 09/18/19 09:40 Pre-Op Diagnosis: ABDOMINAL PAIN Post-Op Diagnosis: Gangrenous gallbladder I identified the patient and participated in the time-out.: Yes Procedure Operation Date: 09/18/19 09:40 Actual Procedures p Laparoscopic Cholecystectomy - Karl Howard DO Surgeon Karl Howard DO Principal Secretary amarilis Metzger Estimated Blood Loss 15 Findings Consistent with Post-Op Diagnosis Specimens gallbladder Description of Procedure After informed consent was obtained the patient was taken to the operating room and placed in supine position. After successful intubation the abdomen was shaved and sterilely prepped and draped in usual fashion. A supraumbilical incision was made with an 11 blade scalpel and carried down through the soft tissues using cautery. Anterior rectus fascia was opened using cautery and two #0 Vicryl stay sutures were placed. Peritoneum was entered using blunt finger penetration and a finger sweep performed. A 12 mm Doran trocar was placed and the abdomen was insufflated to 20 mmHg. A laparoscope was inserted and the abdo men was examined in 360 degrees. A subxiphoid 5 mm port which would later be converted to a 12 mm port, and 2 right upper quadrant 5 mm ports were placed under direct vision. The patient was placed in a reverse Trendelenburg position and airplaned to the left. The gallbladder itself was acutely inflamed and gangrenous. There were several necrotic areas as well as a small perforated area as seen on CT scan. I was able to use primarily blunt graspers to pull the omentum off of the gallbladder. It was too inflamed and thickened to grasp with graspers. We therefore use a gallbladder needle to drain about 30 cc of thick purulent sludge from the gallbladder. We were then able to grasp it and elevate it superiorly and laterally. I used primarily blunt dissection. I was able to eventually identified and skeletonized the cystic duct. There was a cystic artery that was anterior to the duct which I clipped and divided initially. 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 After doing this I was then able to use blunt dissection and cautery to remove the gallbladder from the gallbladder fossa. There was actually pus between the gallbladder and liver in certain areas. Eventually I was able to remove the gallbladder in its entirety place it into an Endo Catch bag and removed from the camera port site. Thorough irrigation was performed in the entire upper abdomen. Any small bleeding points were controlled using cautery. There was no evidence of any bile leaks and there was adequate hemostasis. A final irrigation was performed. A 10 flat Piero-Perez drain was placed in the right upper quadrant and brought out through 1 of the port sites and secured the skin using 2-0 nylon. All the trochars were removed and the abdomen desufflated. The fascia of the camera port was closed using 0 Vicryl in [id number] fashion. All the wounds were irrigated and closed using 4-0 Monocryl. Marcaine was injected around the incisions for postoperative analgesia and skin glue used as a dressing. The patient was awakened extubated and transferred recovery in stable condition. My physician registered dental assistant was present throughout the entire case. She helped prep the patient. She helped run the camera as well as retract the gallbladder during my dissection. She also helped with wound closure and dressing placement. I attest to the content of the Intraoperative Record and any orders documented therein. Any exceptions are noted below.
--- NOTE | 2019-09-18 16:37 | Anesthesiology Progress Note ---
Date of Service September 18, 2019 Anesthesia Post Procedure Vital Signs Vital Signs: Temp Pulse Pulse Resp BP BP Pulse Ox 09/18/19 16:35 66 24 168/59 H 98 09/18/19 16:25 36.3 C L 66 21 170/62 H 98 09/18/19 16:15 67 29 H 161/58 H 99 09/18/19 16:05 67 26 H 164/66 H 100 09/18/19 15:59 36.3 C L 68 15 161/60 H 99 09/18/19 13:19 38.2 C H 66 20 137/59 L 95 09/18/19 10:00 80 16 150/78 H 97 09/18/19 08:45 58 L 16 136/78 96 09/18/19 06:49 37.0 C 74 18 108/64 96 Pain Intensity Abdomen: Pain Intensity: 5 Right Shoulder: Pain Intensity: 3 Transfer of Care Handoff Completed per policy Notes Mental Status: alert / awake / arousable and participated in evaluation Patient Amnestic to Procedure: Yes Nausea / Vomiting: adequately controlled Pain: adequately controlled Airway Patency, RR, SpO2: stable & adequate BP & HR: stable & adequate Hydration State: stable & adequate Anesthetic Complications: no major complications apparent and Pt Satisfied with anesthetic care
[2019-09-18] MEDS ORDERED: MoRPHine SULFATE 2 MG/ML CARP IV PRN ×2 (16:51→17:10)
[2019-09-18] MEDS ORDERED: DEXTROSE 50% 50 ML SYRINGE IV PRN (16:51)
[2019-09-18] MEDS ORDERED: ACETAMINOPHEN 325 MG TAB PO PRN (16:51)
[2019-09-18] MEDS ORDERED: GLUCOSE 40% GEL 15 GM TUBE PO PRN (16:51)
[2019-09-18] MEDS ORDERED: MoRPHine SULFATE 4 MG/ML 1 ML CARP\\VIAL IV PRN ×2 (16:51→17:11)
[2019-09-18] MEDS ORDERED: POLYETHYLENE (MIRALAX) 17 GM PACK PO PRN (16:51)
[2019-09-18] MEDS ORDERED: GLUCOSE 10 TABS/TUBE PO PRN (16:51)
[2019-09-18] MEDS ORDERED: CARBOHYDRATES FOR HYPOGLYCEMIA PO PRN (16:51)
[2019-09-18] MEDS ORDERED: HYDROCODONE/ACETAMOPHEN 5/325MG TAB PO PRN (16:51)
[2019-09-18] MEDS ORDERED: GLUCAGON FOR INJ 1 MG VIAL SQ PRN (16:51)
[2019-09-18] MEDS ORDERED: ALUMINUM/MAGNESIUM SUSP 30 ML UDC PO PRN (16:51)
[2019-09-18] MEDS ORDERED: PHARMACY GLYCEMIC MGMT CONSULT PRN (17:02)
[2019-09-18] MEDS ORDERED: PIPERACILLIN/TAZOBACTAM 4.5 GM in DEXTROSE 5% 100 ML IV SCH (17:15)
[2019-09-18] MEDS: LACTATED RINGER'S 1,000 ML IV SCH (18:32)
[2019-09-18] MEDS: INSULIN ASPART 100 UNITS/ML 3 ML PEN SC SCH ×2 (18:34→21:44)
[2019-09-18] MEDS: PIPERACILLIN/TAZOBACTAM 3.375 GM in DEXTROSE 5% 100 ML IV SCH (19:46)
[2019-09-18] MEDS: ATORVASTATIN 20 MG TAB PO SCH (20:01)
[2019-09-18] MEDS: HYDROCODONE/ACETAMOPHEN 5/325MG TAB PO PRN (22:51)
[2019-09-19] MEDS: INSULIN ASPART 100 UNITS/ML 3 ML PEN SC SCH ×6 (00:06→22:06)
[2019-09-19] MEDS: PIPERACILLIN/TAZOBACTAM 3.375 GM in DEXTROSE 5% 100 ML IV SCH ×3 (01:53→18:13)
[2019-09-19] MEDS: LACTATED RINGER'S 1,000 ML IV SCH (03:12)
[2019-09-19] MEDS: HYDROCODONE/ACETAMOPHEN 5/325MG TAB PO PRN ×3 (03:12→21:01)
[2019-09-19 08:05] LABS: Eosinophils # (auto) 0.02 K/uL (0-0.5); Eosinophils % (auto) 0.2 %; Hematocrit (blood only) 40.7 % (42-52); Hemoglobin 13.7 g/dL (14.0-18.0); Immature Granulocytes # (auto) 0.02 K/uL (0.00-0.02); Immature Granulocytes % (auto) 0.2 %; Lymphocytes # (auto) 0.93 K/uL (1.2-3.4); Lymphocytes % (auto) 10.3 %; Mean Corpuscular Hemoglobin 34.1 pg (25-34); Mean Corpuscular Hgb Conc 33.7 g/dL (32-36); Mean Corpuscular Volume 101.2 fL (80-100); Mean Platelet Volume 11.2 fL (7.4-10.4); Monocytes # (auto) 1.04 K/uL (0.11-0.59); Monocytes % (auto) 11.5 %; Neutrophils # (auto) 7.05 K/uL (1.4-6.5); Neutrophils % (auto) 77.8 %; Platelet Count 181 K/uL (130-400); RDW Coefficient of Variation 12.4 % (11.5-14.5); Red Blood Count 4.02 M/uL (4.7-6.1); White Blood Count 9.06 K/uL (4.8-10.8)
--- NOTE | 2019-09-19 08:12 | Anesthesiology Progress Note ---
Date of Service September 19, 2019 Anesthesia Post Procedure Vital Signs Vital Signs: Temp Pulse Pulse Pulse Resp BP Pulse Ox 09/19/19 07:04 36.7 C 68 20 138/75 90 09/19/19 04:05 36.8 C 71 18 131/72 91 09/18/19 22:52 36.5 C 72 18 149/71 H 92 09/18/19 20:00 37 C 65 18 150/70 H 91 09/18/19 19:22 36.8 C 65 17 168/77 H 96 09/18/19 18:48 164/74 H 09/18/19 17:53 36.8 C 63 17 179/76 H 96 09/18/19 17:31 36.8 C 64 17 166/75 H 97 09/18/19 17:00 37.1 C 68 20 165/72 H 96 09/18/19 16:45 70 21 166/63 H 97 09/18/19 16:35 66 24 168/59 H 98 09/18/19 16:25 36.3 C L 66 21 170/62 H 98 09/18/19 16:15 67 29 H 161/58 H 99 09/18/19 16:05 67 26 H 164/66 H 100 09/18/19 15:59 36.3 C L 68 15 161/60 H 99 09/18/19 13:19 38.2 C H 66 20 137/59 L 95 09/18/19 10:00 80 16 150/78 H 97 09/18/19 08:45 58 L 16 136/78 96 Pain Intensity Abdomen: Pain Intensity: 3 Right Shoulder: Pain Intensity: 5 Right Testicles: Pain Intensity: 8 Notes Mental Status: alert / awake / arousable and participated in evaluation Patient Amnestic to Procedure: Yes Nausea / Vomiting: adequately controlled Pain: adequately controlled Airway Patency, RR, SpO2: stable & adequate BP & HR: stable & adequate Hydration State: stable & adequate Anesthetic Complications: no major complications apparent and Pt Satisfied with anesthetic care
--- NOTE | 2019-09-19 08:16 | Surgery Progress Note ---
Date of Service September 19, 2019 Assessment & Plan (1) Gangrenous cholecystitis: POD 1 lap fan advance diet as abel continue IV abx 24-48 hrs as above. doing well/as expected. some wheezing with give neb treatment will d/c EMERY ( scant/serous) advance diet. hopefully can d/c tomorrow. Subjective feels better, back pain resolved, tolerating clears Physical Exam Gastrointestinal (Abdomen): Inspection/Auscultation: + abdominal surgical incision (dry) and + abdominal surgical drain present (20 cc overnight serous) Percussion/Palpation: abdomen soft Results & Data Vital Signs (Past 12 Hours) Vital Signs Temp Pulse Resp BP Pulse Ox 09/19/19 07:04 36.7 C 68 20 138/75 90 09/19/19 04:05 36.8 C 71 18 131/72 91 09/18/19 22:52 36.5 C 72 18 149/71 H 92 PG Care Time/CCT Total # of Minutes Spent Total Time Spent with Patient: Total time spent is greater than 50% in coordination of care (as documented) at patient's floor/unit and/or counseling patient:
[2019-09-19 08:25] LABS: Estimated Average Glucose 117 mg/dl; Hemoglobin A1C 5.7 % (4.5-5.6)
[2019-09-19 08:53] LABS: Albumin Level 2.2 gm/dl (3.4-5.0); BUN Creatinine Ratio 17.2 (10-20); Calcium 8.7 mg/dl (8.5-10.1); Creatinine Clr Calc Pharmacy 58.9 ml/min; Est GFR (African American) 78.5; Est GFR (Non-African American) 67.7; Potassium 4.1 mmol/L (3.5-5.1)
[2019-09-19] MEDS: OMEGA-3 (PURIFIED FISH OIL) 1 GM CAP PO SCH (08:54)
[2019-09-19] MEDS: LISINOPRIL 40 MG TAB PO SCH (08:54)
[2019-09-19] MEDS: ATENOLOL 50 MG TABLET PO SCH (08:54)
[2019-09-19] MEDS: ISOSORBIDE MONO EXTENDED REL 30 MG TABCR PO SCH (08:55)
[2019-09-19 08:56] LABS: Albumin Globulin Ratio 0.5 (0.9-2); Bilirubin,Total 0.6 mg/dl (0.2-1); Total Protein 6.2 gm/dl (6.4-8.2)
[2019-09-19] MEDS ORDERED: NON-FORMULARY MEDICATION (Coenzyme Q10 [Coq-10] 100 MG) PO SCH (09:00)
[2019-09-19] MEDS ORDERED: NON-FORMULARY MEDICATION (Glucos Sul 2kcl-Msm-Chond-C-Mn [Glucosamine Chondroitin] 1 CAP) PO SCH (09:00)
--- NOTE | 2019-09-19 10:44 | Pharmacy Report ---
Glycemic Control Consultation - Date of Service September 19, 2019 - Scope Scope: Glycemic Pharmacist consulted by Dr Quiros on 09/18 for glycemic control and to write orders per [facility] inpatient glycemic control protocol - Objective Weight: 77.7 kg Accuchecks BSG (last 24hrs): 09/18/19 09/18/19 09/18/19 16:02 17:08 20:20 Glucose POC Glucose 210 H 167 H 169 H 09/18/19 09/19/19 09/19/19 21:28 00:02 04:00 Glucose POC Glucose 143 H 153 H 148 H 09/19/19 09/19/19 07:14 08:01 Glucose 120 H POC Glucose 130 H Laboratory Data (last 24hrs): 09/19/19 07:14 Potassium 4.1 Carbon Dioxide 28 Anion Gap 6.0 Creatinine 1.08 Est Cr Clr Drug Dosing 58.9 HbA1c: Hemoglobin A1c 5.7 % (4.5-5.6) H 09/19/19 07:14 - Recent Pertinent Medications Outpatient Anti-diabetic Regimen: * metformin 750 mg ER po Qam * A1c = 5.7 % 09/19/19 Risk Factors for Insulin Resistance: * Recent Surgery: POD1 * Diet: T2DM - Assessment & Plan Assessment & Plan: ASSESSMENT: * 74 year old with gangrenous cholecystitis, now POD 1 lap fan. PMHx significant for CAD, htn, hld, T2DM. Managed only on metformin at home for diabetes * No steroids received in OR yesterday - started on only bolus insulin * Fasting BSG 130 mg/dL - w/in range / continue to hold basal insulin * Loosened CF/CR for this morning as BSGs trending down PLAN FOR INPATIENT GLYCEMIC CONTROL: * Will hold oral agents for admission and utilize SQ basal bolus insulin regimen which is the recommended regimen for inpatient glycemic control. * Will initiate weight based insulin dosing for insulin gume patient and titrate based on BSG trends. * continue to hold metformin until po intake improves (of note, pharmacy does not carry XR 750 mg strength / could resume on discharge) * Basal insulin * Lantus - hold * Bolus insulin * NovoLog per scale ACHS or Q6hrs while NPO * Goal Range: Low 120 mg/dL - High 160 mg/dL * Correction Factor: 30 mg/dL/unit * Nutritional / Prandial insulin per carb ratio of 1 unit per 12 grams CHO consumed DISCHARGE PLAN: * A1c = 5.7 % on 09/19/19 * Goal A1c = 7 % based on age and comorbidities * Would recommend continuation of metformin on discharge / no changes : * Please note that the plan above was derived based on current level of insulin resistance and hospital stress. These recommendations are appropriate for inpatient admission only. Plan of care upon discharge will need to be reassessed to avoid potential outpatient hypo/hyperglycemia. Thank you.
--- NOTE | 2019-09-19 13:45 | XRay Report ---
TWO VIEW CHEST CLINICAL HISTORY: Dyspnea. Wheezing. Recent cholecystectomy. FINDINGS: PA and lateral chest radiographs are compared to study dated 09/18/2019. The patient is sta tus post midline sternotomy. The heart is enlarged noting atherosclerotic calcification of the thorac ic aorta. The pulmonary vasculature is noncongested. There is a small right pleural effusion. Atelect asis is noted at both lung bases. No pneumothorax is seen. The skeletal structures are osteopenic. Th e bony thorax appears intact. Question trace intraperitoneal free air below the diaphragm. IMPRESSION: 1. Cardiomegaly without radiographic evidence of congestive failure. 2. There is a small right pleural effusion and bibasilar atelectasis. 3. Question trace intraperitoneal free air below the diaphragm. This is likely related to recent surg ester and clinical correlation will be required. Electronically signed by: Joseph Henry M.D. 09/19/2019 1:44 PM
--- NOTE | 2019-09-19 13:58 | Hospitalist Progress Note ---
Date of Service September 19, 2019 Assessment & Plan (1) Gangrenous cholecystitis: s/p cholecystectomy 09/18 Continue Zosyn (2) HTN (hypertension), benign: Continue home atenolol and lisinopril. (3) Hyperlipemia: Continue fish oil 1 tablet p.o. every morning and atorvastatin 20 mg p.o. nightly and coQ10 (4) Diabetes mellitus: Type II Hold metformin A1c 5.7 Glycemic control per pharmacy. (5) CAD (coronary artery disease): History of CABG Continue statin, ASA, atenolol (6) Wheezing: CXR without consolidation or congestion Bibasilar atelectasis and an effusion Duo nebs, IS. (7) DVT prophylaxis: SCDs Subjective Mr. Lyon feels that he is wheezing quite a bit today but otherwise has no complaints. ROS Constitutional: no chills, aches, sweats or fever Respiratory: no sob,cough, or sputum Cardiac: no chest pain, palpitations, edema, orthopnea or lightheadedness GI: no abdominal pain, nausea, vomiting, diarrhea or constipation : no dysuria or hesitancy Extremities: no joint pain or weakness Skin: no rash All other systems reviewed and negative Physical Exam Physical Exam: General: no distress Eyes: normal inspection, PERLL Respiratory: chest non tender, clear to auscultation, normal breath sounds, no respiratory distress, no accessory muscle use Cardiac: regular rate and rhythm, no rub or gallop, no murmur, no edema, no jvd GI/: active bowel sounds, no abd pain or tenderness, soft, non distended Extremities: normal range of motion, normal strength, non tender Neuro/Psych: alert and oriented x 3, normal mood and affect Skin: normal color, dry Results & Data Vital Signs (Past 12 Hours) Vital Signs Temp Pulse Resp BP Pulse Ox 09/19/19 11:44 36.9 C 62 20 125/67 91 09/19/19 07:04 36.7 C 68 20 138/75 90 09/19/19 04:05 36.8 C 71 18 131/72 91 PG Care Time/CCT Total # of Minutes Spent Total Time Spent with Patient: Total time spent is greater than 50% in coordination of care (as documented) at patient's floor/unit and/or counseling patient:
[2019-09-19] MEDS: ALBUT/IPRATROP 3MG/0.5MG NEB 3 ML VIAL NEB SCH ×2 (15:09→19:27)
[2019-09-19] MEDS: MAGNESIUM HYDROXIDE SUSP 30 ML UDC PO PRN (18:20)
[2019-09-19] MEDS: ATORVASTATIN 20 MG TAB PO SCH (21:01)
[2019-09-20] MEDS: PIPERACILLIN/TAZOBACTAM 3.375 GM in DEXTROSE 5% 100 ML IV SCH ×2 (00:55→09:52)
[2019-09-20 05:18] LABS: Eosinophils # (auto) 0.12 K/uL (0-0.5); Eosinophils % (auto) 1.4 %; Hematocrit (blood only) 39.5 % (42-52); Hemoglobin 13.4 g/dL (14.0-18.0); Immature Granulocytes # (auto) 0.02 K/uL (0.00-0.02); Immature Granulocytes % (auto) 0.2 %; Lymphocytes # (auto) 1.06 K/uL (1.2-3.4); Mean Corpuscular Hemoglobin 34.3 pg (25-34); Mean Corpuscular Hgb Conc 33.9 g/dL (32-36); Mean Platelet Volume 10.2 fL (7.4-10.4); Monocytes # (auto) 0.99 K/uL (0.11-0.59); Monocytes % (auto) 11.3 %; Neutrophils # (auto) 6.61 K/uL (1.4-6.5); Neutrophils % (auto) 75.1 %; Platelet Count 214 K/uL (130-400); RDW Coefficient of Variation 12.3 % (11.5-14.5); RDW Standard Deviation 45.3 fL (36.4-46.3); Red Blood Count 3.91 M/uL (4.7-6.1)
[2019-09-20 05:46] LABS: Albumin Level 2.3 gm/dl (3.4-5.0); BUN Creatinine Ratio 18.2 (10-20); Calcium 8.7 mg/dl (8.5-10.1); Creatinine Clr Calc Pharmacy 59.5 ml/min; Est GFR (African American) 79.4; Est GFR (Non-African American) 68.5; Potassium 4.2 mmol/L (3.5-5.1)
[2019-09-20 05:49] LABS: Albumin Globulin Ratio 0.5 (0.9-2); Bilirubin,Total 0.5 mg/dl (0.2-1); Globulin 4.4 gm/dl (2.5-4.0); Total Protein 6.7 gm/dl (6.4-8.2)
[2019-09-20 07:13] VITALS: BP 150/73; TEMP 98.6
[2019-09-20] MEDS: MAGNESIUM HYDROXIDE SUSP 30 ML UDC PO PRN (07:25)
[2019-09-20] MEDS: ALBUT/IPRATROP 3MG/0.5MG NEB 3 ML VIAL NEB SCH ×2 (07:44→11:10)
--- NOTE | 2019-09-20 08:18 | Surgery Progress Note ---
Date of Service September 20, 2019 Assessment & Plan (1) Gangrenous cholecystitis: doing well. labs reviewed ok for d/c instructions given. Subjective pt seen. feeling ok. abel diet. no new complaints Physical Exam Physical Exam: alert. nad. sitting at bedside no resp distress abd: soft. expected tenderness. Results & Data Vital Signs (Past 12 Hours) Vital Signs Temp Pulse Resp BP Pulse Ox 09/20/19 07:45 72 16 90 09/20/19 07:12 37.0 C 76 20 150/73 H 91 09/19/19 23:22 37.3 C 68 16 147/75 H 91 PG Care Time/CCT Total # of Minutes Spent Total Time Spent with Patient: Total time spent is greater than 50% in coordination of care (as documented) at patient's floor/unit and/or counseling patient:
[2019-09-20] MEDS: ATENOLOL 50 MG TABLET PO SCH (08:55)
[2019-09-20] MEDS: ISOSORBIDE MONO EXTENDED REL 30 MG TABCR PO SCH (08:56)
[2019-09-20] MEDS: OMEGA-3 (PURIFIED FISH OIL) 1 GM CAP PO SCH (08:56)
[2019-09-20] MEDS: LISINOPRIL 40 MG TAB PO SCH (08:56)
[2019-09-20] MEDS: INSULIN ASPART 100 UNITS/ML 3 ML PEN SC SCH ×2 (08:56→13:07)
[2019-09-20] MEDS ORDERED: ASPIRIN 81 MG ECTAB PO SCH (09:00)
[2019-09-20 11:11] VITALS: PULSE 64; O2SAT 91
[2019-09-20] MEDS ORDERED: ALBUTEROL HFA 8 GM INHALER INH ONE (12:37)
--- NOTE | 2019-09-20 12:37 | Discharge Summary ---
Date of Service September 20, 2019 Admission HPI Per Admitting Provider Patient is a 74 years old male with past medical history of hypertension, hyperlipidemia, diabetes mellitus, coronary artery disease with bypass surgery done 20 years ago who presented with right upper quadrant abdominal pain started yesterday night and continuing during the day and appears to bother him as a discomfort especially after fatty food. Patient denies fever, chills, chest pain, shortness of breath, frequency, urgency, hematemesis, dysuria, hematuria. Labs are reviewed: WBC is 12.15, hemoglobin 15, hematocrit 43, platelets 189, PT 10.6, INR 1, APTT 28.8, sodium 134, potassium 4.3, chloride 102, BUN 23, creatinine 0.96, GFR 78.1, magnesium 2.1, lipase 61, Albumin 2.7. Ultrasound of the right upper quadrant: Gallbladder sludge, gallbladder distention, borderline wall thickness and positive sonographic Acosta's sign. Findings are highly suspicious for acute cholecystitis. This could be confirmed with HIDA scan. No biliary ductal dilatation to suggest choledocholithiasis. CT scan showed acute cholecystitis with markedly gallbladder wall irregularities raising the possibility of gangrenosa cholecystitis with possible disruption of the atrial wall. Decision was made to admit patient to observation for immediate surgical procedure and cholecystectomy. Discussed with surgery. Principal Diagnosis Cholecystitis Discharge Exam Constitutional WD/WN, vitals as above Respiratory normal respiratory effort; no respiratory distress, no labored breathing, no retractions and does not use accessory muscles faint wheezing right base Cardiovascular Rate/Rhythm: regular rate; + abnormal rhythm Heart Sounds: + murmur (llsb 2/6) Discharge Data Allergies Allergy/AdvReac Type Severity Reaction Status Date / Time ragweed pollen Allergy Mild Unknown Verified 09/18/19 07:30 grass pollen-perennial rye, Allergy Unknown Unknown Verified 09/18/19 07:30 standar No Known Drug Allergies Allergy Unknown . Verified 09/18/19 07:30 Consultations 09/18/19 11:17 Consult General Surgery Stat ED Decision to Admit Stat 09/18/19 16:51 Consult General Surgery Routine Procedures Performed Operation Date: 09/18/19 09:40 Actual Procedures p Laparoscopic Cholecystectomy - Karl Howard, DO Ordered Studies 09/18/19 07:10 CT abd pelvis IV con only Stat US gallbladder Stat Hospital Course (1) Gangrenous cholecystitis: s/p cholecystectomy 09/18 Given Zosyn inpatient Per surgery - ok for dc today, no need for further antibiotics (2) HTN (hypertension), benign: Continue home atenolol and lisinopril. (3) Hyperlipemia: Continue fish oil 1 tablet p.o. every morning and atorvastatin 20 mg p.o. nightly and coQ10 (4) Diabetes mellitus: Type II Held metformin inpatient - can resume on discharge A1c 5.7 Glycemic control per pharmacy. (5) CAD (coronary artery disease): History of CABG Continue statin, ASA, atenolol Irregular rhythm today - EKG with SR and PVCs Murmur on exam, asymptomatic - I don't have any recent echocardiograms in our records. Would recommend echo if a recent one has not been performed. (6) Wheezing: CXR without consolidation or congestion Bibasilar atelectasis and a small right effusion Duo nebs, IS inpatient - will send home with albuterol inhaler and teaching by nursing on its use Patient has a history of many years of smoking - consider PFTs on follow up (7) DVT prophylaxis: SCDs Total Time Total Time Spent Total Time Spent (In Minutes): greater than 30 minutes Discharge Plan Discharge Items Patient Disposition: Home - Self-Care Reason For Visit: ABDOMINAL PAIN Discharge Diagnosis: cholecystitis Activity: As commented below Lifting: No more than 10 pounds Bathing Comment: may shower starting 09/19/19; no soaking in tubs Exercise/Sports: Wait until after follow-up appointment Driving/Machine Use: do not resume driving while taking narcotics for pain Non-emergency contact: Primary Care Provider and Surgeon Call non-emergency contact if: you have any medication questions, your symptoms worsen, your pain is not controlled, your pain is worsening, your pain is unusual for you, your pain is concerning for you, you have a fever, your temperature is above 101.5, your wound has increased redness, your wound has increased drainage and your wound pain has increased Follow-up/Referrals: Karl Howard, [Surgeon] - (Please follow up in clinic within 1-2 weeks. You may call the office sooner if you have any questions/concerns.) Marsha Spencer CRNP [Primary Care Provider] - Diet: Regular Addtl Attending Provider Instructions: (1) Gangrenous cholecystitis: Cholecystectomy was performed by Dr. Howard on 09/18. You have been provided with hydrocodone/acetaminophen to help control your pain over the next couple of days. You may also take over the counter acetaminophen. Do not take more than 3000 mg of acetaminophen in a day. (2) HTN (hypertension) Continue home atenolol and lisinopril. (3) Hyperlipemia: Continue fish oil 1 tablet p.o. every morning and atorvastatin 20 mg p.o. nightly and coQ10 (4) Diabetes mellitus: You may resume your metformin this evening (5) CAD (coronary artery disease): Continue your statin, ASA, atenolol (6) Wheezing: A chest Xray performed 09/19 showed a small amount of fluid in the lining around your right lung and some compression of your airways at the bases but no sign of infection or fluid overload. To treat these findings you should use your incentive spirometer 10 times per day while awake. A prescription for a rescue inhaler has been sent to your pharmacy. You should discuss with your primary care provider about follow up pulmonary function testing. Please see your primary care provider in about a week Pending Studies at Discharge: No Stand-Alone Forms: Call Back Authorization, [facility], Smoking Cessation Medications and DC Order Prescriptions: New albuterol sulfate [ProAir HFA] 90 mcg/actuation HFA aerosol inhaler 1 puffs INH Q6H PRN (Reason: shortness of breath or wheezing) Qty: 6.7 RF: 0 hydrocodone-acetaminophen [[place]] 5-325 mg Tablet 1 tab PO Q4H PRN (Reason: pain) Qty: 15 RF: 0 Continued atorvastatin 20 mg tablet 20 mg PO HS RF: 0 isosorbide mononitrate 30 mg tablet extended release 24 hr 30 mg PO QAM RF: 0 aspirin 81 mg Tablet,Delayed Release (Dr/Ec) 81 mg PO QAM RF: 0 lisinopril 40 mg tablet 40 mg PO QAM RF: 0 atenolol 50 mg tablet 50 mg PO QAM RF: 0 coenzyme Q10 [CoQ-10] 100 mg Capsule 100 mg PO QAM RF: 0 metformin 750 mg tablet extended release 24 hr 750 mg PO QAM RF: 0 [place]-3 350 mg-235 mg- 90 mg-597 mg Capsule,Delayed Release(Dr/Ec) 1 cap PO QAM RF: 0 Glucosamine Chondroitin 550-30-1 mg Capsule 1 cap PO QAM RF: 0 Discharge Orders: Discharge Order (Routine); Ordered 09/20/19 Ordered By: Polly Bobo Admission Data Admit Date/Time: 09/18/19 16:10 Attending Provider: [place] Admit Provider: Robert Quiros Primary Care Provider: Marsha Spencer Other Providers: Karl Howard ; Robert Quiros ; Vineet Lyon Other Interventions: Discharge Summary Assessment (RN) Last Done: 09/20/19 13:22 DC Date/Time DO NOT enter until pt leaves facility: 09/20/19 14:26 Supervising Physician Co-Signing Physician Notes I supervised Polly Bobo NP on this patient's care. I examined the patient today independently of her. I discussed the plan of care with her with the plan being as written in her note except for any following changes/exceptions: None. Doing well after cholecystectomy. Will get an albuterol inhaler for his wheezing, and if he continues to need to use it, can follow up with PFTs with his PCP.
== END 2019-09-20 14:26 | disposition home or self-care (01) | DRG 418 ==
LOC: ED 06:45 → 3W 06:45 → SUATTDRO 16:10

== ENCOUNTER 2023-01-05 21:36 | Inpatient (IN) ==
[2023-01-05] MEDS ORDERED: MoRPHine SULFATE 4 MG/ML 1 ML CARP\\VIAL ONE (21:49)
[2023-01-05] MEDS ORDERED: ASPIRIN CHEW 324 MG ONE (21:49)
[2023-01-05] MEDS ORDERED: MoRPHine SULFATE 4 MG/ML 1 ML CARP\\VIAL IV STA (21:51)
--- NOTE | 2023-01-05 21:52 | Emergency Department Note ---
History of Present Illness General Chief Complaint: Chest Pain Stated Complaint: CHEST PAIN,JAW/SHOULDER PAIN,SOB Time Seen by Provider: 01/05/23 21:47 History of Present Illness Provider Complaint: chest pain Onset (ago): day(s) 1 Duration: intermittent Onset: during rest Pain Location: substernal Pain Radiation: RUE and jaw/teeth Severity: moderate Maximum Pain Intensity: 7 Current Pain Intensity: 7 Quality: + heaviness Relieved By: + nothing Exacerbated By: + nothing Context: no recent illness, no recent surgery, no recent travel, no trauma/injury or no history of DVT/PE Associated symptoms: + dyspnea; no nausea, no vomiting or no fever Home Medications Medication Instructions Recorded Confirmed Type aspirin 81 mg tablet,delayed 81 mg PO QAM 09/18/19 01/05/23 History release glucosamine sulf dipot 1 cap PO QAM 09/18/19 01/05/23 History chlr,msm,chond 550 mg-C 30 mg-ghazal 1 mg capsule (Glucosamine Chondroitin) isosorbide mononitrate 30 mg 30 mg PO QAM 09/18/19 01/05/23 History tablet,extended release 24 hr lisinopril 40 mg tablet 40 mg PO QAM 09/18/19 01/05/23 History omega 3 350 mg-dha 235 mg-epa 90 1 cap PO QAM 09/18/19 01/05/23 History mg-fish oil 597 mg capsule,delay rel ([place]-3) coQ10 (ubiquinol) 200 mg capsule 200 mg PO QAM 01/03/20 01/05/23 History allopurinol 100 mg tablet 100 mg PO QAM 12/01/21 01/05/23 History atorvastatin 10 mg tablet 10 mg PO HS 12/03/21 01/05/23 History multivitamin (Daily Multi-Vitamin 1 tab PO DAILY 06/01/22 01/05/23 History tablet) atenolol 25 mg tablet 25 mg PO DAILY 01/05/23 01/05/23 History fluticasone fur. 100 mcg-umeclid 1 inh inhalation DAILY 01/05/23 01/05/23 History 62.5 mcg-vilant 25 mcg inhalat.powder (Trelegy Ellipta) Allergies Allergy/AdvReac Type Severity Reaction Status Date / Time grass pollen-perennial rye, Allergy Intermediate RUNNY Verified 03/14/23 21:58 standar NOSE, COUGH ragweed pollen Allergy Intermediate RUNNY Verified 01/05/23 21:58 NOSE/COUGH Past Med/Surg History Medical History CAD (coronary artery disease) Diabetes mellitus no meds Gout HTN (hypertension) Hyperlipidemia Osteoarthritis Poorly-controlled hypertension Prostate cancer RADIATION TX AND SURGERY Proteinuria SVT (supraventricular tachycardia) Surgical History H/O right inguinal hernia repair (03/28/20) Right Open Inguinal Hernia Repair with Bard Mesh(Right);excision of cord lipoma Dr. Howard 03/28/20 History of cardiac cath NO STENTS OVERS 20 YEARS AGO History of cataract surgery RT/LEFT History of cholecystectomy History of colonoscopy History of prostatectomy History of tooth extraction Hx of CABG 20 YEARS AGO AT [facility] (FOLLOWS WITH DR. MADDEN) Hx of vasectomy Family History Uncle Family hx of colon cancer Heart disease Father Heart disease Mother Heart disease Other No family history of adverse response to anesthesia Social History Smoking Status: Current every day smoker Age Started Using Tobacco: 55; Cigarettes Per Day: 8 "SMALL CIGARS DAILY"; Second Hand Exposure: No; Hx Alcohol Use: Yes Alcohol type: hard liquor Alcohol Intake Frequency: 4 or More x per/Week Alcohol Intake Frequency Comment: 3-4/day Hx Substance Use: No Preferred Language: Kyrgyz Communication Ability: Effective Supervisor Instrument Mechanics Required: No Beliefs That Will Affect Care: None Current Living Situation: Spouse Feels Safe at Home: Yes Assistive Devices: Glasses Physical Exam Vital Signs Vital Signs - 24 hr 01/05/23 21:40 01/05/23 21:49 01/05/23 21:47 Temperature 36.4 C L Temperature Source Temporal Artery Scan Pulse Rate 64 74 Respiratory Rate 18 Respiratory Effort / Characteristics Non-Labored Spontaneous Respiratory Depth Normal Blood Pressure 183/90 H Blood Pressure Mean 121 Pulse Oximetry 97 Oxygen Delivery Method Room Air Room Air Sepsis Recent Fever Within 48 Hours No Sepsis New/Unexplained Change in Mental Status No Sepsis Action Taken by Nursing No Action Required 01/05/23 21:47 Temperature Temperature Source Pulse Rate Respiratory Rate Respiratory Effort / Characteristics Respiratory Depth Blood Pressure Blood Pressure Mean Pulse Oximetry 98 Oxygen Delivery Method Room Air Sepsis Recent Fever Within 48 Hours Sepsis New/Unexplained Change in Mental Status Sepsis Action Taken by Nursing Physical Exam GENERAL: He is oriented to person, place, and time. He appears well-developed and well-nourished. CV: Normal rate, regular rhythm, normal heart sounds and intact distal pulses. There is no peripheral edema. Palpable radial pulses bue. PULM/CHEST: Effort normal and breath sounds normal. No respiratory distress. No stridor. He has no wheezes. He has no rales. - Chest Wall: He exhibits no tenderness. NEURO: Motor and sensation grossly intact SKIN: Skin is warm and dry. He is not diaphoretic. PSYCH: He has a normal mood and affect. Behavior is normal. Judgment and thought content normal. Course Course 2146: The patient was evaluated in room C2. A complete history and physical exam was performed Cardiac monitoring: An order was placed for continuous cardiac monitoring. The monitor shows a rate of 60 with sinus rhythm interpreted by il Heart alert paged. Aspirin given to the patient. Morphine was given to the patient which improved his chest pain. Dr. Ricks arrived and took the patient to the [facility]. Dr. Ricks recommends patient be loaded with 600 mg of Plavix p.o. which was given to the patient. Administered Medications Discontinued Medications Aspirin (Aspirin Chew 324 Mg) Confirm Administered Dose 324 mg .ROUTE .STK-MED ONE Stop: 01/05/23 21:50 Last Admin: 01/05/23 21:51 Dose: 324 mg Documented By: PEACE Clopidogrel Bisulfate (Clopidogrel Bisulfate 300 Mg Tab) 600 mg PO NOW STA Stop: 01/05/23 22:26 Last Admin: 01/05/23 22:31 Dose: 600 mg Documented By: PEACE Morphine Sulfate (Morphine Sulfate 4 Mg/Ml 1 Ml Carp\\Vial) Confirm Administered Dose 4 mg .ROUTE .STK-MED ONE Stop: 01/05/23 21:50 Last Admin: 01/05/23 21:57 Dose: Not Given Documented By: ALYSSA Morphine Sulfate (Morphine Sulfate 4 Mg/Ml 1 Ml Carp\\Vial) 4 mg IV NOW STA Stop: 01/05/23 21:52 Last Admin: 01/05/23 21:51 Dose: 4 mg Documented By: ALYSSA Medical Decision Making Laboratory Data 01/05/23 21:49 01/05/23 21:49 Labs: Lab Results 01/05/23 01/05/23 01/05/23 Range/Units 21:49 21:49 21:49 WBC 9.40 (4.8-10.8) K/ul RBC 4.54 L (4.70-6.10) M/uL Hgb 15.7 (14.0-18.0) g/dl Hct 44.8 (42.0-52.0) % MCV 98.7 (80.0-100.0) fL MCH 34.6 H (25.0-34.0) pg MCHC 35.0 (32.0-36.0) g/dL RDW Std Deviation 45.3 (36.4-46.3) fL RDW Coeff of Shad 12.6 (11.5-14.5) % Plt Count 237 (130-400) K/uL MPV 10.6 (9.4-12.4) fL Immature Gran % (Auto) 1.8 % Neut % (Auto) 60.1 % Lymph % (Auto) 24.9 % Upson % (Auto) 8.7 % Eos % (Auto) 4.3 % Baso % (Auto) 0.2 % Neut # (Auto) 5.65 (1.40-6.50) K/uL Lymph # (Auto) 2.34 (1.2-3.4) K/uL Upson # (Auto) 0.82 H (0.11-0.59) K/uL Eos # (Auto) 0.40 (0-0.50) K/uL Baso # (Auto) 0.02 (0-0.2) K/uL Immature Gran # (Auto) 0.17 (0.01-0.20) K/uL PT Cancelled INR Cancelled APTT Cancelled PTT Ratio Cancelled Sodium 139 (136-145) mmol/L Potassium 5.4 H (3.5-5.1) mmol/L Chloride 105 (98-107) mmol/L Carbon Dioxide 29 (21-32) mmol/L Anion Gap 5 (3-11) BUN 26 H (6-23) mg/dl Creatinine 0.97 (0.6-1.4) mg/dl Est Cr Clr Drug Dosing 62.7 ml/min Est GFR ( Amer) 87.5 ml/min Est GFR (Non-Af Amer) 75.5 ml/min BUN/Creatinine Ratio 26.8 H (10-20) Glucose 126 H (70-99(Fasting)) mg/dl Calcium 9.6 (8.5-10.1) mg/dl Magnesium 2.1 (1.7-2.4) mg/dl Total Bilirubin 0.3 (0.2-1.0) mg/dl AST 32 (13-39) U/L ALT 22 (7-52) U/L Alkaline Phosphatase 91 (34-104) U/L Total Creatine Kinase 64 (30-223) U/L Troponin I High Sens 1228.6 H* (0-20) pg/ml B-Natriuretic Peptide (0-100) pg/ml Total Protein 7.9 (6.0-8.3) gm/dl Albumin 4.1 (3.4-5.0) gm/dl Globulin 3.8 (2.5-4.0) gm/dl Albumin/Globulin Ratio 1.1 (0.9-2) Lipase 34 (11-82) U/L TSH (0.300-4.500) uIu/ml SARS-CoV-2, RNA, NAAT (NEGATIVE) 01/05/23 01/05/23 01/05/23 Range/Units 21:49 21:49 21:51 WBC (4.8-10.8) K/ul RBC (4.70-6.10) M/uL Hgb (14.0-18.0) g/dl Hct (42.0-52.0) % MCV (80.0-100.0) fL MCH (25.0-34.0) pg MCHC (32.0-36.0) g/dL RDW Std Deviation (36.4-46.3) fL RDW Coeff of Shad (11.5-14.5) % Plt Count (130-400) K/uL MPV (9.4-12.4) fL Immature Gran % (Auto) % Neut % (Auto) % Lymph % (Auto) % Upson % (Auto) % Eos % (Auto) % Baso % (Auto) % Neut # (Auto) (1.40-6.50) K/uL Lymph # (Auto) (1.2-3.4) K/uL Upson # (Auto) (0.11-0.59) K/uL Eos # (Auto) (0-0.50) K/uL Baso # (Auto) (0-0.2) K/uL Immature Gran # (Auto) (0.01-0.20) K/uL PT INR APTT PTT Ratio Sodium (136-145) mmol/L Potassium (3.5-5.1) mmol/L Chloride (98-107) mmol/L Carbon Dioxide (21-32) mmol/L Anion Gap (3-11) BUN (6-23) mg/dl Creatinine (0.6-1.4) mg/dl Est Cr Clr Drug Dosing ml/min Est GFR ( Amer) ml/min Est GFR (Non-Af Amer) ml/min BUN/Creatinine Ratio (10-20) Glucose (70-99(Fasting)) mg/dl Calcium (8.5-10.1) mg/dl Magnesium (1.7-2.4) mg/dl Total Bilirubin (0.2-1.0) mg/dl AST (13-39) U/L ALT (7-52) U/L Alkaline Phosphatase (34-104) U/L Total Creatine Kinase (30-223) U/L Troponin I High Sens (0-20) pg/ml B-Natriuretic Peptide 210 H (0-100) pg/ml Total Protein (6.0-8.3) gm/dl Albumin (3.4-5.0) gm/dl Globulin (2.5-4.0) gm/dl Albumin/Globulin Ratio (0.9-2) Lipase (11-82) U/L TSH 2.972 (0.300-4.500) uIu/ml SARS-CoV-2, RNA, NAAT NEGATIVE (NEGATIVE) Imaging Data Chest x-ray: Attestation: I personally reviewed and interpreted this imaging study as follows: My impression: Chest x-ray negative. Airway clear. No pneumothorax. No consolidation. No cardiomegaly or cephalization.. No free air under the diaphragm. No fractures of the skeletal structures. ECG Data Attestation: I personally reviewed and interpreted this ECG as follows: Indication: chest pain Rate (beats per minute): 63 Rhythm: normal sinus Findings: + ST depression (I avL) and + ST elevation (II, III, aVF); no prolonged QT MDM Narrative The patient was evaluated in room C2. A complete history and physical exam was performed Cardiac monitoring: An order was placed for continuous cardiac monitoring. The monitor shows a rate of 60 with sinus rhythm interpreted by me Heart alert paged. Aspirin given to the patient. Morphine was given to the patient which improved his chest pain. Dr. Ricks arrived and took the patient to the [facility]. Dr. Ricks recommends patient be loaded with 600 mg of Plavix p.o. which was given to the patient. Impression & Plan ST elevation (STEMI) myocardial infarction Critical Care Time Critical Care Time: Yes Total Critical Care Time: 36 I have personally spent greater than 36 minutes of critical care time in the direct management of this patient. This includes bedside care, interpretation of diagnostic studies, and testing, discussion with consultants, patient, and family members, and other required patient management activities. This 36 minutes is in excess of all separately billable procedures. Discharge Plan Visit Data Chief Complaint: Chest Pain Stated Complaint: CHEST PAIN,JAW/SHOULDER PAIN,SOB ED Provider: Panchito Schmidt Discharge Problem: ST elevation (STEMI) myocardial infarction Patient Disposition: Admitted As Inpatient Discharge Instructions Interventions: ED Discharge Assessment Last Done: 01/05/23 22:30
[2023-01-05] MEDS ORDERED: niCARdipine HCL INJ 2.5 MG/ML 10 ML AMP ONE (22:08)
[2023-01-05] MEDS ORDERED: MIDAZOLAM HCL 1 MG/ML 2ML VIAL ONE ×2 (22:08→23:28)
[2023-01-05] MEDS ORDERED: fentaNYL citrate PF 100 MCG/2 ML VIAL ONE (22:08)
[2023-01-05] MEDS ORDERED: HEPARIN (PORCINE) 1000 UNIT/ML 10 ML (CATH LAB USE ONLY) ONE ×2 (22:08→23:49)
[2023-01-05] MEDS ORDERED: NITROGLYCERIN/D5W 100MCG/ML 20ML SYR ONE (22:10)
[2023-01-05 22:15] LABS: Basophils # (auto) 0.02 K/uL (0-0.2); Basophils % (auto) 0.2 %; Eosinophils % (auto) 4.3 %; Hematocrit (blood only) 44.8 % (42.0-52.0); Hemoglobin 15.7 g/dl (14.0-18.0); Immature Granulocytes # (auto) 0.17 K/uL (0.01-0.20); Immature Granulocytes % (auto) 1.8 %; Lymphocytes # (auto) 2.34 K/uL (1.2-3.4); Lymphocytes % (auto) 24.9 %; Mean Corpuscular Hemoglobin 34.6 pg (25.0-34.0); Mean Corpuscular Volume 98.7 fL (80.0-100.0); Mean Platelet Volume 10.6 fL (9.4-12.4); Monocytes # (auto) 0.82 K/uL (0.11-0.59); Monocytes % (auto) 8.7 %; Neutrophils # (auto) 5.65 K/uL (1.40-6.50); Neutrophils % (auto) 60.1 %; Platelet Count 237 K/uL (130-400); RDW Coefficient of Variation 12.6 % (11.5-14.5); RDW Standard Deviation 45.3 fL (36.4-46.3); Red Blood Count 4.54 M/uL (4.70-6.10)
[2023-01-05] MEDS ORDERED: CLOPIDOGREL BISULFATE 300 MG TAB PO STA (22:25)
[2023-01-05] MEDS ORDERED: CLOPIDOGREL BISULFATE 300 MG TAB ONE (22:26)
--- NOTE | 2023-01-05 22:34 | Pre Anesthesia Assessment ---
Date of Service January 05, 2023 Pre Sedation Assessment Vital Signs Temp Pulse Resp BP Pulse Ox O2 Del Method 01/05/23 21:47 98 Room Air 01/05/23 21:47 Room Air 01/05/23 21:49 74 01/05/23 21:40 97.5 F L 64 18 183/90 H 97 Room Air Cardiovascular RRR, no murmur, no edema Respiratory normal respiratory effort, lungs clear to auscultation Pre-Sedation Airway Assessment Smoking Status: Current every day smoker Hx Sleep Apnea: No Hx Difficult Intubation: No Short, Thick Neck: No Thyromental Distance: > or= 3.5 Finger Breadths ASA: ASA3 Procedure Planning Contraindications for Sedation: none Current Medications Reviewed: Yes Notes The planned sedation has been discussed with the patient. Informed Consent was obtained. I have identified the patient, determined the appropriateness of sedation and have assessed the patient immediately prior to the procedure. All medicine(s) and interventions are by my order.
--- NOTE | 2023-01-05 22:38 | Cardiology Consultation ---
Date of Consultation January 05, 2023 Assessment & Plan (1) Acute coronary syndrome: Presentation consistent with high risk ACS and recommend proceeding with emergent cardiac catheterization and likely primary PCI. No apparent contraindications to procedure. Discussed risks, benefits, alternatives of procedure with patient and they are willing to proceed. Given aspirin, clopidogrel in the ED. Further recommendations pending findings of coronary angiography. History of Present Illness History of Present Illness Mr. Lyon is a 77-year-old man here with acute chest pain and ECG concerning for acute LA. Patient seen emergently in the ED after heart alert activated on arrival. His primary room server is Dr. Lang. Past cardiac history remarkable for coronary artery disease post three-vessel CABG in 1996 at [facility] (per old notes - conduits RACHEL, ISBELL, SVGtargets unknown). Other medical issues include type 2 diabetes, hypertension, SVT, carotid artery disease (left ICA 70%), dyslipidemia, prostate cancer, gout and osteoarthritis/lumbar radiculopathy. Chest pain began approximately 1 hour prior to arrival while at home watching TV. Pain radiated to his right arm and jaw. Patient had a similar episode of chest discomfort the night prior which resolved without intervention. No recurrence until this evening. Has not had similar symptoms prior to the last 2 nights. Chest pain at time of arrival 05/03. Hypertensive to the 180s. Initial ECG showed sinus rhythm with inferior ST elevations. After aspirin, morphine pain and ST elevations resolved. Allergies Allergy/AdvReac Type Severity Reaction Status Date / Time grass pollen-perennial rye, Allergy Intermediate RUNNY Verified 01/05/23 21:58 standar NOSE, COUGH ragweed pollen Allergy Intermediate RUNNY Verified 01/05/23 21:58 NOSE/COUGH Home Medications Medication Instructions Recorded Confirmed Type aspirin 81 mg tablet,delayed 81 mg PO QAM 09/18/19 01/05/23 History release glucosamine sulf dipot 1 cap PO QAM 09/18/19 01/05/23 History chlr,msm,chond 550 mg-C 30 mg-ghazal 1 mg capsule (Glucosamine Chondroitin) isosorbide mononitrate 30 mg 30 mg PO QAM 09/18/19 01/05/23 History tablet,extended release 24 hr lisinopril 40 mg tablet 40 mg PO QAM 09/18/19 01/05/23 History omega 3 350 mg-dha 235 mg-epa 90 1 cap PO QAM 09/18/19 01/05/23 History mg-fish oil 597 mg capsule,delay rel ([place]-3) coQ10 (ubiquinol) 200 mg capsule 200 mg PO QAM 01/03/20 01/05/23 History allopurinol 100 mg tablet 100 mg PO QAM 12/01/21 01/05/23 History atorvastatin 10 mg tablet 10 mg PO HS 12/03/21 01/05/23 History multivitamin (Daily Multi-Vitamin 1 tab PO DAILY 06/01/22 01/05/23 History tablet) atenolol 25 mg tablet 25 mg PO DAILY 01/05/23 01/05/23 History fluticasone fur. 100 mcg-umeclid 1 inh inhalation DAILY 01/05/23 01/05/23 History 62.5 mcg-vilant 25 mcg inhalat.powder (Trelegy Ellipta) Patient History Medical History CAD (coronary artery disease) Diabetes mellitus no meds Gout HTN (hypertension) Hyperlipidemia Osteoarthritis Poorly-controlled hypertension Prostate cancer RADIATION [place] AND SURGERY Proteinuria SVT (supraventricular tachycardia) Surgical History H/O right inguinal hernia repair (03/28/20) Right Open Inguinal Hernia Repair with Bard Mesh(Right);excision of cord lipoma Dr. Howard 03/28/20 History of cardiac cath NO STENTS OVERS 20 YEARS AGO History of cataract surgery RT/LEFT History of cholecystectomy History of colonoscopy History of prostatectomy History of tooth extraction Hx of CABG 20 YEARS AGO AT [facility] (FOLLOWS WITH DR. LANG) Hx of vasectomy Family History Uncle Family hx of colon cancer Heart disease Father Heart disease Mother Heart disease Other No family history of adverse response to anesthesia Social History Smoking Status: Current every day smoker Age Started Using Tobacco: 55; Cigarettes Per Day: 8 "SMALL CIGARS DAILY"; Second Hand Exposure: No; Hx Alcohol Use: Yes Alcohol type: hard liquor Alcohol Intake Frequency: 4 or More x per/Week Alcohol Intake Frequency Comment: 3-4/day Hx Substance Use: No Preferred Language: Mosotho Communication Ability: Effective Correctional Therapy Teacher Required: No Beliefs That Will Affect Care: None Current Living Situation: Spouse Feels Safe at Home: Yes Assistive Devices: Glasses Review of Systems Review of Systems: Not completed in the setting of emergent situation Physical Exam Physical Exam: General: Comfortable HEENT: Sclerae anicteric Lungs: Clear to auscultation bilaterally Cardiac: Regular rate and rhythm, no murmurs Vascular: 2+ radial, 2+ femoral Abdomen: Soft, nontender Extremities: Well perfused, no peripheral edema Neuro: Nonfocal Psych: Alert orient x3, normal affect and mood Results & Data ([facility]) Vital Signs (Past 12 Hours) Vital Signs Temp Pulse Resp BP Pulse Ox O2 Del Method 01/05/23 21:47 98 Room Air 01/05/23 21:47 Room Air 01/05/23 21:49 74 01/05/23 21:40 97.5 F L 64 18 183/90 H 97 Room Air PG Care Time/CCT Total # of Minutes Spent Total Time Spent with Patient: Total time spent is greater than 50% in coordination of care (as documented) at patient's floor/unit and/or counseling patient: Coding Level of Care Code 86310 INT INP/OBS CARE 3/75MIN Diagnoses Acute coronary syndrome I24.9
[2023-01-05 23:05] LABS: Albumin Globulin Ratio 1.1 (0.9-2); Albumin Level 4.1 gm/dl (3.4-5.0); BUN Creatinine Ratio 26.8 (10-20); Bilirubin,Total 0.3 mg/dl (0.2-1.0); Calcium 9.6 mg/dl (8.5-10.1); Creatinine Clr Calc Pharmacy 62.7 ml/min; Est GFR (African American) 87.5 ml/min; Est GFR (Non-African American) 75.5 ml/min; Globulin 3.8 gm/dl (2.5-4.0); Magnesium 2.1 mg/dl (1.7-2.4); Potassium 5.4 mmol/L (3.5-5.1); Total Protein 7.9 gm/dl (6.0-8.3)
[2023-01-05 23:22] LABS: Troponin I High Sensitivity 1228.6 pg/ml (0-20)
--- NOTE | 2023-01-06 00:09 | XRay Report ---
SINGLE VIEW CHEST CLINICAL HISTORY: Atypical chest pain FINDINGS: An AP, portable, upright chest radiograph is compared to study dated 01/25/2020. The patient is status post midline sternotomy. The heart is enlarged noting atherosclerotic calcification of the thoracic aorta. The pulmonary vasculature is noncongested. There is bibasilar scarring/atelectasis. N o airspace consolidation or large pleural effusion is identified. No pneumothorax is seen. The skelet al structures are osteopenic. The bony thorax is grossly intact. IMPRESSION: Cardiomegaly with no acute cardiopulmonary abnormality identified. ACT 112: Negative or not required by law. Electronically signed by: Joseph Herny M.D. 01/06/2023 12:08 AM
[2023-01-06] MEDS ORDERED: ONDANSETRON INJ 2 MG/ML 2 ML VIAL IV PRN (01:04)
[2023-01-06] MEDS ORDERED: ACETAMINOPHEN 325 MG TAB PO PRN (01:04)
--- NOTE | 2023-01-06 01:15 | History & Physical Report ---
Date of Service January 06, 2023 Assessment & Plan (1) ST elevation (STEMI) myocardial infarction: Plan: Pola Lyon is a 77-year-old male with PMH of CAD status post three-vessel CABG in 1996 at [facility], HTN, HLD, cerebrovascular disease, SNHL, prostate cancer, DM who presented to the ED due to left-sided chest pain of 1 hour duration. Now s/p CIERA x1. STEMI/CAD/HTN/HLD - Patient now s/p CIERA x 1 -- 90% acute lesion of SVG to RCA - Received clopidogrel load in ED - Aspirin 81mg daily, clopidogrel 75mg daily - Atorvastatin 40mg daily - Isosorbide mononitrate 30mg daily - Lisinopril 20mg daily - MTP tartrate 25mg PO BID - Cardiology following and recommending: Continue dual-antiplatelet therapy for at least 1 year. Trend troponins until peak, Check Echo Uptitrate beta-leslye/REFUGIO as BP allows High-dose statin Consult cardiac Rehab - Admit to ICU for monitoring post PCI - Insulation Foreman consulted DM2 - Per history on chart but patient is not on meds - ICU hyperglycemia protocol COPD - Continue hospital equivalent of home Trelegy Ellipta DVT ppx: Per ICU/Cardiology Diet: DM2 Dispo: admit to ICU CODE STATUS: Full (2) Acute coronary syndrome: (3) HTN (hypertension), benign: (4) Hyperlipemia: (5) CAD (coronary artery disease): History of Present Illness Primary Care Provider: Gretta Fowler Pola Lyon is a 77-year-old male with PMH of CAD status post three-vessel CABG in 1996 at [facility], HTN, HLD, cerebrovascular disease, SNHL, prostate cancer, DM who presented to the ED due to left-sided chest pain of 1 hour dura tion. Pain described as 7/10 on arrival with radiation to right arm and jaw. He did report an episode of pain previous night, which self resolved. EKG on arrival to ED showed inferior ST elevations and heart alert was called. Patient was also hypertensive to 180s systolic. ST elevations and pain resolved after administration of aspirin and morphine. He was evaluated by Cardiology who recommended proceeding with emergent cardiac catheterization. Per Cardiology, patient's SVG to RCA found to have a 90% acute lesion and received one CIERA. Tolerated procedure without complications and will be transferred to ICU for ongoing monitoring. At this time patient without CP, palp, SOB, n/v, dizziness, MARTINEZ, abd pain. Allergies Allergy/AdvReac Type Severity Reaction Status Date / Time grass pollen-perennial rye, Allergy Intermediate RUNNY Verified 01/05/23 21:58 standar NOSE, COUGH ragweed pollen Allergy Intermediate RUNNY Verified 01/05/23 21:58 NOSE/COUGH Home Medications Medication Instructions Recorded Confirmed Type aspirin 81 mg tablet,delayed 81 mg PO QAM 09/18/19 01/05/23 History release glucosamine sulf dipot 1 cap PO QAM 09/18/19 01/05/23 History chlr,msm,chond 550 mg-C 30 mg-ghazal 1 mg capsule (Glucosamine Chondroitin) isosorbide mononitrate 30 mg 30 mg PO QAM 09/18/19 01/05/23 History tablet,extended release 24 hr lisinopril 40 mg tablet 40 mg PO QAM 09/18/19 01/05/23 History omega 3 350 mg-dha 235 mg-epa 90 1 cap PO QAM 09/18/19 01/05/23 History mg-fish oil 597 mg capsule,delay rel ([place]-3) coQ10 (ubiquinol) 200 mg capsule 200 mg PO QAM 01/03/20 01/05/23 History allopurinol 100 mg tablet 100 mg PO QAM 12/01/21 01/05/23 History multivitamin (Daily Multi-Vitamin 1 tab PO DAILY 06/01/22 01/05/23 History tablet) fluticasone fur. 100 mcg-umeclid 1 inh inhalation DAILY 01/05/23 01/05/23 History 62.5 mcg-vilant 25 mcg inhalat.powder (Trelegy Ellipta) aspirin 81 mg tablet,delayed 81 mg PO QAM 30 days #30 tabs 01/07/23 Rx release atorvastatin 40 mg tablet 40 mg PO QAM 30 days #30 tabs 01/07/23 Rx clopidogrel 75 mg tablet 75 mg PO QAM 30 days #30 tabs 01/07/23 Rx metoprolol tartrate 25 mg tablet 12.5 mg PO BID 30 days #30 tabs 01/07/23 Rx Past Med/Surg History Medical History CAD (coronary artery disease) Diabetes mellitus no meds Gout HTN (hypertension) Hyperlipidemia Osteoarthritis Poorly-controlled hypertension Prostate cancer RADIATION TX AND SURGERY Proteinuria SVT (supraventricular tachycardia) Surgical History H/O right inguinal hernia repair (03/28/20) Right Open Inguinal Hernia Repair with Bard Mesh(Right);excision of cord lipoma Dr. Howard 03/28/20 History of cardiac cath NO STENTS OVERS 20 YEARS AGO History of cataract surgery RT/LEFT History of cholecystectomy History of colonoscopy History of prostatectomy History of tooth extraction Hx of CABG 20 YEARS AGO AT [facility] (FOLLOWS WITH DR. MADDEN) Hx of vasectomy Family History Uncle Family hx of colon cancer Heart disease Father Heart disease Mother Heart disease Other No family history of adverse response to anesthesia Social History Smoking Status: Current every day smoker Age Started Using Tobacco: 55; Cigarettes Per Day: 7; Second Hand Exposure: No; Hx Alcohol Use: Yes Alcohol type: hard liquor Alcohol Intake Frequency: 4 or More x per/Week Alcohol Intake Frequency Comment: 3-4/day Hx Substance Use: No Preferred Language: Yi Communication Ability: Effective Differential Tester Required: No Beliefs That Will Affect Care: None Current Living Situation: Spouse Feels Safe at Home: Yes Assistive Devices: None Review of Systems Review of Systems: per HPI Physical Exam Physical Exam: GENERAL: A&Ox3. NAD. HEENT: PERRL, EOMI. Moist mucous membranes. NECK: No JVD. No lymphadenopathy. CHEST/LUNGS: CTAB A/P. No crackles, wheezes, rales, rhonchi. HEART: RRR. No m/g/r. ABDOMEN: NT/ND, soft. BS+ x4 EXTREMITIES: No cyanosis, no clubbing, no edema SKIN: Warm and dry. No rashes or lesions. PSYCHIATRIC: Euthymic affect, no SI, no pressured speech, no hallucinations NEUROLOGIC: No FND. Results & Data Results & Data ([facility]) Vital Signs (Past 12 Hours) Vital Signs Temp Pulse Resp BP Pulse Ox O2 Del Method 01/05/23 21:47 98 Room Air 01/05/23 21:47 Room Air 01/05/23 21:49 74 01/05/23 21:40 36.4 C L 64 18 183/90 H 97 Room Air Code Status & VTE Plan VTE Prophylaxis Plan VTE Prophylaxis will be ordered: Yes Critical Care Time 40 minutes Supervising Physician Co-Signing Physician Notes Attending addendum: I have physically seen this patient, have supervised the medical residents raquel boston, and agree with the H&P unless as otherwise noted. Assessment and Plan: Acute STEMI- Patient was a heart alert Underwent emergent cardiac catheterization, and is status post CIERA x1 treating a 90% acute lesion of SVG to RCA Admitted to ICU post intervention for serial cardiac enzymes, cardiac rhythm monitoring and a complete echocardiogram Status post clopidogrel 300 mg in ED Dual antiplatelet therapy with aspirin 81 mg daily and clopidogrel 75 mg daily for at least 1 year High-dose statin atorvastatin 40 mg daily Isosorbide mononitrate 30 mg daily Lisinopril 20 mg daily Metoprolol tartrate 25 mg p.o. twice daily Interventional cardiology to follow Insulation Foreman consulted Diabetes mellitus- Placed on ICU hyperglycemic protocol COPD continue Trelegy Ellipta Remaining orders and notations per consultants Resident Activity Tracking Resident Involvement: Resident Care Provided Care Provided: Adult Hospital Medicine (1) ST elevation (STEMI) myocardial infarction Involved coronary artery: unspecified coronary artery Qualified Code(s): I21.3 - ST elevation (STEMI) myocardial infarction of unspecified site
--- NOTE | 2023-01-06 01:34 | Cardiac Catheterization ---
[facility] Data: Device Sales Consultant Cardiac Status Clinical evaluation leading to the procedure CAD Presenation: Non STEMI Anginal Classification: CCS IV Diagnostic Physicians Name: Andrew Ricks MD Closure Device Recommendations: PCI without planned CABG Cardiac Cath Procedure Full Procedure Date January 06, 2023 Pre-Procedure Diagnosis Pre-Procedure Diagnosis: Acute Coronary Syndrome AUC Score AUC Score: 8 Post-Procedure Diagnosis Post-Procedure Diagnosis: Severe CAD and Successful PCI Procedure(s) Performed Procedure(s) Performed: Coronary Angiography, Drug Eluting Stent, Ultrasound Guided Vascular Access, Bypass Graft Angiography and Femoral Artery Angiography It Architecture Consultant Andrew Ricks MD Manager Registration(s) Network Operations Project Manager Estimated Blood Loss Estimated Blood Loss: 15 Medication(s) Medication(s): Clopidogrel, Fentanyl, Heparin, Lidocaine 1%, Nicardipine, Nitroglycerin and Versed Summary of Findings Indication: High risk ACS/heart alert. Transient inferior ST elevations on ECG. History of CABG in 1996 with reported conduits of ISBELL, RACHEL and SVG. Access: 6 Fr right RETAIL AGENT under ultrasound guidance. 6 Fr right radial artery Catheters: JL 4, JR4, MPA, JR4 guide, MPA guide Findings: LM -calcified with diffuse disease up to 60% distal LAD -medium caliber, 90% ostial, 90% mid segment stenosis after D2. Competitive flow in mid LAD from ISBELL. Medium D2 with 40% ostial stenosis. Circumflex -small caliber, 90% ostial. 80% proximal stenosis in medium OM with competitive flow RCA -dominant, small caliber, calcified, 50% proximal, 100% chronic occlusion in the midsegment after takeoff of acute marginal. RIMAatretic SVG to OMwidely patent ISBELL to LADwidely patent. Mid to distal LAD after anastomosis without significant disease and wraps around apex. SVG to distal RCA40 to 50% proximal stenosis, 90% stenosis at distal RCA anastomosis with thrombus. Distal RCA heavily calcified. -- PCI -- Antithrombotic therapy: Heparin, clopidogrel Procedure: Prior notes had suggested that his conduits included 1 vein graft and 1 RACHEL graft. RACHEL poorly visualized from the groin but appeared to be occluded. No collaterals noted to RCA territory and with transient inferior ST elevations initially some concern that mid RCA occlusion may be acute. RCA was cannulated with JR4 guide and attempt made to wire across occlusion with towing pilot 50, whisper wire but occlusion behaved more chronic. Further attempts made to find graft RCA territory. Right radial artery access obtained and additional attempts to find RACHEL confirmed atretic vessel. Additional attempts to find possible vein graft RCA eventually found SVG to RCA showing distal acute on chronic disease. With some difficulty vein graft cannulated with multipurpose guide Whisper wire passed across lesion into distal RPDA Distal SVG/RCA anastomotic lesion predilated with 2.5 compliant balloon Dilated SVG/RCA lesion stented with 3.0 x 18 mm Eddie drug-eluting stent Stent post-dilated with 3.5 noncompliant balloon IC vasodilators administered for spasm Post procedure DEEPTHI 3 flow, stent well expanded with minimal residual stenosis and no apparent cardiac complications. Arterial Closure: Angio-Seal, TR band Summary: 1. Acute on chronic 90% distal SVG/distal RCA anastomotic lesion 2. Widely patent ISBELL to LAD and SVG to OM. 3. Chronic yuhaaviatam multivessel coronary artery disease 60% distal left main 90% ostial, 90% mid LAD 90% ostial circumflex, 80% proximal OM 100% mid RCA chronic total occlusion 4. Successful PCI of SVG to distal RCA with single drug-eluting stent (3.0 x 18 mm Eddie; postdilated with 3.5 NC). Recommendations: Admit to ICU for continued monitoring Loaded with clopidogrel 600 mg in ED Continue dual-antiplatelet therapy for at least 1 year. Trend troponins until peak, Check Echo Uptitrate beta-leslye/REFUGIO as BP allows High-dose statin Consult cardiac Rehab Hemodynamics Rest Ao:: 131/48/125 Final Ao: 160/59/128 LV: -- Recommendations Recommendations: PCI without planned CABG Specimens Specimens: None Radiation Exposure (mGy) 4670 Contrast (mls) 180 Anesthesia Moderate 1425-7764 Procedural Complication(s) None Disposition ICU I attest to the content of the Intraoperative Record and any orders documented therein. Any exceptions are noted below. [facility] Card Cath Procedure Codes Cardiac Catheterization Procedure 1: Cardiovascular Cath Procedures: 42133 Coronaries and Grafts/IM (venous & atrial) Moderate Sedation Procedure 1: Sedation/Anesthesia: 81104 Mod Sedation by the same physician;Init15 Min Child Age 5 & Up Procedure 2: Sedation/Anesthesia: 09700 Mod Sedation by the same physician; Ea [id number] Minutes Stenting Procedure 1: Cardiovascular Stent Procedures: 70452 Perc tranluminal revascularization of or throughout CABG PG Care Time/CCT Total # of Minutes Spent Total Time Spent with Patient: Total time spent is greater than 50% in coordination of care (as documented) at patient's floor/unit and/or counseling patient:
[2023-01-06] MEDS: SODIUM CHLORIDE 0.9% 1000ML 1,000 ML IV SCH ×2 (01:59→12:00)
[2023-01-06] MEDS ORDERED: ALBUT/IPRATROP 3MG/0.5MG NEB 3 ML VIAL NEB PRN (02:15)
--- NOTE | 2023-01-06 02:16 | Critical Care Consultation ---
Date of Consultation January 06, 2023 Assessment & Plan (1) STEMI (ST elevation myocardial infarction): Impression: 77-year-old male presents to the ICU following inferior STEMI, now status post successful PCI with CIERA x1 to the RCA. Neuro - CAM ICU: Negative Cardiac - STEMIEKG showing inferior ST elevation, now status post CIERA x1 to the RCA for 90% occlusion -Admitted to ICU post cath for further monitoring -ASA, Plavix -Continue high-dose statin, beta-leslye, -Trend troponins for peak -Follow-up echo -Continuous monitoring on telemetry Respiratory - COPDno issue at this time. Continue trilogy. Nebs as needed -Continuous monitoring pulse ox GI - Heart healthy diet RENAL/LYTES - Creatinine within normal limits, monitor routine BMP and replete electrolytes as indicated Mild hyperkalemia on admission with 5.4 potassium. He is on lisinopril. Will hold for now and monitor - Strict I's and O's ENDO - Prior hemoglobin A1c within normal limits. No meds for diabetes. Currently euglycemic. ICU hyperglycemic protocol HEME - H&H stable, monitor routine CBC ID - No indication for infectious process at this time LINES/IV ACCESS - Peripheral IVs DVT PROPHYLAXIS - SCDs, heparin Thank you for allowing us to participate in the care of this patient. Please refer to my attending physician's documentation for any further recommendations. (2) HTN (hypertension), benign: (3) Hyperlipemia: (4) DVT prophylaxis: (5) CAD (coronary artery disease): Supervising Physician Co-Signing Physician Notes Patient seen and examined. EMR reviewed. Discussed with critical care ADA as well as on multidisciplinary rounds. Patient is pain-free. He is tolerated a diet. He is hemodynamically stable. Continue goal-directed therapy. Cardiac rehab as an outpatient. He has a small area of swelling at the femoral access site on the right. This will continue to monitor elevated. Hemoglobin did drop slightly this morning but no evidence of abdominal pain, or flank tenderness or swelling. Patient will require cardiac rehab in an outpatient setting. Patient is doing well clinically. Will defer ultimate disposition to cardiology and primary service. Critical care issues appear to have resolved. History of Present Illness Attending Physician: Scottie Anderson MD History of Present Illness Patient is a 77-year-old male with past medical history of CAD (s/p CABG in 1996), HTN, HLD, ICA stenosis, and prostate cancer who presented to the emergency department with complaints of chest pain. Patient reports that he had chest pain with radiation to the arm and jaw 2 nights ago but resolved on its own. Patient states that he has never had pain like this before. Earlier this evening he again had chest pain with radiation to the right arm and jaw 7 out of 10 with associated shortness of breath. In the emergency department EKG revealed inferior ST elevations and he was taken to the [facility] where he received CIERA to SVG to RCA where he was found to have 90% stenosis. Patient now admitted to the ICU for further management at this time. On arrival to the ICU the patient is alert and oriented without acute distress. He is maintaining oxygen saturation on room air. He currently denies prior symptoms and is chest pain free. He denies any recent illness or fevers, headache or dizziness, congestion or cough, shortness of breath, palpitations, abdominal pain, nausea vomiting or diarrhea, swelling in hands and feet, changes in vision, changes in gait. Allergies Allergy/AdvReac Type Severity Reaction Status Date / Time grass pollen-perennial rye, Allergy Intermediate RUNNY Verified 01/05/23 21:58 standar NOSE, COUGH ragweed pollen Allergy Intermediate RUNNY Verified 01/05/23 21:58 NOSE/COUGH Home Medications Medication Instructions Recorded Confirmed Type aspirin 81 mg tablet,delayed 81 mg PO QAM 09/18/19 01/05/23 History release glucosamine sulf dipot 1 cap PO QAM 09/18/19 01/05/23 History chlr,msm,chond 550 mg-C 30 mg-ghazal 1 mg capsule (Glucosamine Chondroitin) isosorbide mononitrate 30 mg 30 mg PO QAM 09/18/19 01/05/23 History tablet,extended release 24 hr lisinopril 40 mg tablet 40 mg PO QAM 09/18/19 01/05/23 History omega 3 350 mg-dha 235 mg-epa 90 1 cap PO QAM 09/18/19 01/05/23 History mg-fish oil 597 mg capsule,delay rel ([place]-3) coQ10 (ubiquinol) 200 mg capsule 200 mg PO QAM 01/03/20 01/05/23 History allopurinol 100 mg tablet 100 mg PO QAM 12/01/21 01/05/23 History atorvastatin 10 mg tablet 10 mg PO HS 12/03/21 01/05/23 History multivitamin (Daily Multi-Vitamin 1 tab PO DAILY 06/01/22 01/05/23 History tablet) atenolol 25 mg tablet 25 mg PO DAILY 01/05/23 01/05/23 History fluticasone fur. 100 mcg-umeclid 1 inh inhalation DAILY 01/05/23 01/05/23 History 62.5 mcg-vilant 25 mcg inhalat.powder (Trelegy Ellipta) Patient History Medical History CAD (coronary artery disease) Diabetes mellitus no meds Gout HTN (hypertension) Hyperlipidemia Osteoarthritis Poorly-controlled hypertension Prostate cancer RADIATION TX AND SURGERY Proteinuria SVT (supraventricular tachycardia) Surgical History H/O right inguinal hernia repair (03/28/20) Right Open Inguinal Hernia Repair with Bard Mesh(Right);excision of cord lipoma Dr. Howard 03/28/20 History of cardiac cath NO STENTS OVERS 20 YEARS AGO History of cataract surgery RT/LEFT History of cholecystectomy History of colonoscopy History of prostatectomy History of tooth extraction Hx of CABG 20 YEARS AGO AT [facility] (FOLLOWS WITH DR. MADDEN) Hx of vasectomy Family History Uncle Family hx of colon cancer Heart disease Father Heart disease Mother Heart disease Other No family history of adverse response to anesthesia Social History Smoking Status: Current every day smoker Age Started Using Tobacco: 55; Cigarettes Per Day: 7; Second Hand Exposure: No; Do You Dip or Chew Tobacco: No; Hx Alcohol Use: Yes Alcohol type: hard liquor Alcohol Intake Frequency: 4 or More x per/Week Alcohol Intake Frequency Comment: 3-4/day Hx Substance Use: No Preferred Language: Upper Sorbian Communication Ability: Effective Bag Tester Required: No Beliefs That Will Affect Care: None Current Living Situation: Spouse Feels Safe at Home: Yes Safety Concerns: Feels Safe At This Time Assistive Devices: Glasses Review of Systems Review of Systems: All systems reviewed & are unremarkable except as noted in HPI & below Physical Exam Constitutional: cooperative and comfortable Eyes: PERRL, conjunctivae normal, anicteric sclerae ENMT: external ear and nose normal, oropharynx normal Neck: trachea midline, no thyromegaly Respiratory: normal respiratory effort, lungs clear to auscultation Cardiovascular: RRR, no murmur, no edema Heart Sounds: normal S1 and normal S2; no murmur Extremities: no edema Gastrointestinal (Abdomen): normal bowel sounds, soft, nontender, no hepatosplenomegaly Musculoskeletal: no cyanosis or clubbing, extremities motor strength 5/5 Skin: no rashes, warm and dry Neurologic: PERRL, EOMI, accommodation nl, no face palsy, no dysarthria Psychiatric: A+Ox3, euthymic affect Results & Data Results & Data ([facility]) Vital Signs (Past 12 Hours) Vital Signs Temp Pulse Resp BP Pulse Ox O2 Del Method 01/05/23 21:47 98 Room Air 01/05/23 21:47 Room Air 01/05/23 21:49 74 01/05/23 21:40 36.4 C L 64 18 183/90 H 97 Room Air Coding Level of Care Code 71066 IN/OBS CONSULT LVL 2,35M Diagnoses STEMI (ST elevation myocardial infarction) I21.3 HTN (hypertension), benign I10 Hyperlipemia E78.5 DVT prophylaxis Z29.9 CAD (coronary artery disease) I25.10 Time Spent (min) 40
[2023-01-06 02:44] LABS: BUN Creatinine Ratio 30.1 (10-20); Calcium 8.8 mg/dl (8.5-10.1); Creatinine Clr Calc Pharmacy 73.3 ml/min; Est GFR (African American) 99.1 ml/min; Est GFR (Non-African American) 85.5 ml/min; Potassium 5.1 mmol/L (3.5-5.1)
[2023-01-06 02:55] LABS: Partial Thromboplastin Ratio > 5.1; Prothrombin Time 10.6 Seconds (9.0-12.0)
[2023-01-06] MEDS ORDERED: INFLUENZA VACCINE HIGH DOSE PF 65+ 0.7 ML SYR IM ONE (03:17)
[2023-01-06 03:31] LABS: Partial Thromboplastin Time > 139.0 Seconds (21.0-31.0)
[2023-01-06 06:13] LABS: Basophils # (auto) 0.01 K/uL (0-0.2); Basophils % (auto) 0.1 %; Eosinophils # (auto) 0.25 K/uL (0-0.50); Eosinophils % (auto) 3.3 %; Hematocrit (blood only) 40.2 % (42.0-52.0); Hemoglobin 13.9 g/dl (14.0-18.0); Immature Granulocytes # (auto) 0.03 K/uL (0.01-0.20); Immature Granulocytes % (auto) 0.4 %; Lymphocytes # (auto) 2.12 K/uL (1.2-3.4); Lymphocytes % (auto) 27.6 %; Mean Corpuscular Hemoglobin 34.7 pg (25.0-34.0); Mean Corpuscular Hgb Conc 34.6 g/dL (32.0-36.0); Mean Corpuscular Volume 100.2 fL (80.0-100.0); Mean Platelet Volume 10.4 fL (9.4-12.4); Monocytes # (auto) 0.57 K/uL (0.11-0.59); Monocytes % (auto) 7.4 %; Neutrophils % (auto) 61.2 %; Platelet Count 201 K/uL (130-400); RDW Coefficient of Variation 12.5 % (11.5-14.5); RDW Standard Deviation 46.6 fL (36.4-46.3); Red Blood Count 4.01 M/uL (4.70-6.10); White Blood Count 7.68 K/ul (4.8-10.8)
[2023-01-06 06:30] LABS: BUN Creatinine Ratio 26.4 (10-20); Calcium 8.3 mg/dl (8.5-10.1); Chol HDL Ratio 2.3 (0-5); Creatinine Clr Calc Pharmacy 66.8 ml/min; Est GFR (African American) 94.5 ml/min; Est GFR (Non-African American) 81.6 ml/min; Magnesium 1.9 mg/dl (1.7-2.4); Phosphorus 3.3 mg/dl (2.5-4.9); Potassium 5.1 mmol/L (3.5-5.1)
[2023-01-06] MEDS ORDERED: MAGNESIUM SULFATE / D5W 1 GM/100 ML BAG IV ONE (06:44)
[2023-01-06 06:46] LABS: Partial Thromboplastin Ratio 1.1; Partial Thromboplastin Time 30.4 Seconds (21.0-31.0)
[2023-01-06] MEDS: ICU Protocol for HYPERglycemia SCH ×2 (07:32→13:27)
[2023-01-06 07:41] LABS: Estimated Average Glucose 126 mg/dl
[2023-01-06] MEDS: ISOSORBIDE MONO EXTENDED REL 30 MG TABCR PO SCH (08:05)
[2023-01-06] MEDS: ASPIRIN 81 MG ECTAB PO SCH (08:05)
[2023-01-06] MEDS: lisinopril 20 MG TAB PO SCH (08:05)
[2023-01-06] MEDS: ATORVASTATIN 40 MG TAB PO SCH (08:06)
[2023-01-06] MEDS: CLOPIDOGREL BISULFATE 75 MG TAB PO SCH (08:06)
[2023-01-06] MEDS: FLUTICASONE FUROATE 100MCG 14 PUFFS/INHALER INH SCH (08:32)
[2023-01-06] MEDS: HEPARIN SOD 5,000 UNIT/0.5 ML VIAL SQ SCH ×2 (08:32→20:04)
[2023-01-06] MEDS: UMECLIDINIUM/VILANTEROL 62.5/25MCG 7 PUFFS/INHALER INH SCH (08:33)
[2023-01-06] MEDS ORDERED: NON-FORMULARY MEDICATION (Coq10 (Ubiquinol) 200 mg Capsule) PO SCH (09:00)
[2023-01-06] MEDS ORDERED: NON-FORMULARY MEDICATION (Fluticasone-Umeclidin-Vilanter [Trelegy Ellipta] 100-62.5-25 mcg INH SCH (09:00)
[2023-01-06] MEDS ORDERED: METOPROLOL TARTRATE 25 MG TAB PO SCH (09:00)
--- NOTE | 2023-01-06 17:58 | XCELERA ---
[id number]
--- NOTE | 2023-01-06 18:07 | Cardiology Progress Note ---
Date of Service January 06, 2023 Assessment & Plan (1) Acute coronary syndrome: Plan: --post PCI with CIERA to distal SVG to RCA 2. 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 90% LAD, severe ostial LCx/proxmal OM. Patent ISBELL-LAD, SVG to OM 3. Preserved LV function - EF 50-55% inferior wall motion abnormality 4. Mild to moderate aortic stenosis 5. Type 2 DM -- A1c 6.0 6. Dyslipidemia -- LDL 90 7. Hypertension Hemodynamically and electrically stable. No recurrent [place] [address] LV function preserved on echo. No Heart failure on exam. No access site complications. -- Continue DAPT with ASA/Clopidogrel for 1 year. -- On lisinopril 20mg --> increase back to home 40mg as BP allows. -- home atenolol held. Started on metoprolol --> titrate as able. -- high intensity statin -- monitor Hb (15--> 13.9). -- From a cardiac standpoint doing well. OK with transfer to telemetry. Up walking halls today. If stable overnight home tomorrow. Admission and Anticipated Discharge Date Admission Date: January 06, 2023 Subjective Feeling well today. No recurrent chest pain. No shortness of breath. Mild tenderness at RT FRONT END WEB DEVELOPER access site. Telemetry - no events. Review of Systems Review of Systems: All systems reviewed & are unremarkable except as noted in HPI & below Physical Exam Physical Exam: General: Comfortable HEENT: Sclerae anicteric Lungs: Clear to auscultation bilaterally Cardiac: Regular rate and rhythm, no murmurs Vascular: RT radial artery -- 2+/no ecchymosis/no hematoma. RT FRONT END WEB DEVELOPER - 2+ pulses, tender, no hematoma or ecchymosis. Abdomen: Soft, nontender Extremities: Well perfused, no peripheral edema Neuro: Nonfocal Psych: Alert orient x3, normal affect and mood Results & Data Vital Signs (Past 12 Hours) Vital Signs Temp Pulse Pulse Resp BP BP Pulse Ox 01/06/23 15:40 64 01/06/23 15:26 98.8 F 62 18 131/65 96 01/06/23 15:08 74 20 131/68 96 01/06/23 15:07 67 01/06/23 15:01 01/06/23 14:00 67 21 95 01/06/23 14:00 120/52 L 01/06/23 13:00 61 20 93 01/06/23 13:00 107/51 L 01/06/23 12:03 105/48 L 01/06/23 12:03 72 19 94 01/06/23 12:01 78 14 94 01/06/23 12:00 70 26 H 94 01/06/23 08:00 54 L 01/06/23 07:30 97.7 F 01/06/23 11:30 69 18 98 01/06/23 11:15 67 21 96 01/06/23 11:00 55 L 18 96 01/06/23 11:00 136/71 01/06/23 10:45 52 L 12 97 01/06/23 10:30 56 L 16 96 01/06/23 10:15 55 L 16 95 01/06/23 10:00 56 L 19 95 01/06/23 10:00 139/73 01/06/23 09:45 55 L 13 97 01/06/23 09:30 58 L 23 97 01/06/23 09:15 63 16 98 01/06/23 09:00 56 L 15 96 01/06/23 09:00 135/63 01/06/23 08:45 57 L 24 96 01/06/23 08:30 61 15 94 01/06/23 08:15 58 L 21 92 01/06/23 08:01 55 L 18 93 01/06/23 08:01 161/83 H 01/06/23 08:00 57 L 17 94 01/06/23 07:45 54 L 14 95 01/06/23 07:30 70 17 99 01/06/23 07:15 55 L 19 01/06/23 07:01 144/73 H 01/06/23 07:01 52 L 17 01/06/23 07:00 56 L 18 01/06/23 06:45 58 L 20 93 01/06/23 06:30 52 L 11 L 94 01/06/23 06:15 57 L 17 96 01/06/23 06:00 56 L 9 L 95 01/06/23 06:00 127/59 L O2 Del Method 01/06/23 15:40 01/06/23 15:26 Room Air 01/06/23 15:08 Room Air 01/06/23 15:07 03/15/23 15:01 Room Air 01/06/23 14:00 01/06/23 14:00 01/06/23 13:00 01/06/23 13:00 01/06/23 12:03 01/06/23 12:03 01/06/23 12:01 01/06/23 12:00 01/06/23 08:00 01/06/23 07:30 01/06/23 11:30 01/06/23 11:15 01/06/23 11:00 01/06/23 11:00 01/06/23 10:45 01/06/23 10:30 01/06/23 10:15 01/06/23 10:00 01/06/23 10:00 01/06/23 09:45 01/06/23 09:30 01/06/23 09:15 01/06/23 09:00 01/06/23 09:00 01/06/23 08:45 01/06/23 08:30 01/06/23 08:15 01/06/23 08:01 01/06/23 08:01 01/06/23 08:00 01/06/23 07:45 01/06/23 07:30 01/06/23 07:15 01/06/23 07:01 01/06/23 07:01 01/06/23 07:00 01/06/23 06:45 01/06/23 06:30 01/06/23 06:15 01/06/23 06:00 01/06/23 06:00 PG Care Time/CCT Total # of Minutes Spent Total Time Spent with Patient: Total time spent is greater than 50% in coordination of care (as documented) at patient's floor/unit and/or counseling patient: Coding Level of Care Code 60973 SUB INP/OBS CARE 3/50MIN Diagnoses Acute coronary syndrome I24.9
[2023-01-06] MEDS: METOPROLOL TARTRATE 25 MG TAB PO SCH (20:04)
[2023-01-07 07:46] LABS: Basophils # (auto) 0.01 K/uL (0-0.2); Basophils % (auto) 0.1 %; Eosinophils # (auto) 0.27 K/uL (0-0.50); Eosinophils % (auto) 3.8 %; Hematocrit (blood only) 39.5 % (42.0-52.0); Hemoglobin 13.5 g/dl (14.0-18.0); Immature Granulocytes # (auto) 0.04 K/uL (0.01-0.20); Immature Granulocytes % (auto) 0.6 %; Lymphocytes # (auto) 1.64 K/uL (1.2-3.4); Lymphocytes % (auto) 23.4 %; Mean Corpuscular Hemoglobin 34.3 pg (25.0-34.0); Mean Corpuscular Hgb Conc 34.2 g/dL (32.0-36.0); Mean Corpuscular Volume 100.3 fL (80.0-100.0); Mean Platelet Volume 10.9 fL (9.4-12.4); Monocytes # (auto) 0.62 K/uL (0.11-0.59); Monocytes % (auto) 8.8 %; Neutrophils # (auto) 4.44 K/uL (1.40-6.50); Neutrophils % (auto) 63.3 %; Platelet Count 172 K/uL (130-400); RDW Coefficient of Variation 12.5 % (11.5-14.5); RDW Standard Deviation 46.5 fL (36.4-46.3); Red Blood Count 3.94 M/uL (4.70-6.10); White Blood Count 7.02 K/ul (4.8-10.8)
[2023-01-07 08:01] LABS: BUN Creatinine Ratio 19.4 (10-20); Calcium 8.6 mg/dl (8.5-10.1); Creatinine Clr Calc Pharmacy 84.4 ml/min; Est GFR (Non-African American) 90.6 ml/min; Magnesium 1.8 mg/dl (1.7-2.4); Phosphorus 3.5 mg/dl (2.5-4.9); Potassium 4.5 mmol/L (3.5-5.1)
[2023-01-07] MEDS: ASPIRIN 81 MG ECTAB PO SCH (08:01)
[2023-01-07] MEDS: ISOSORBIDE MONO EXTENDED REL 30 MG TABCR PO SCH (08:01)
[2023-01-07] MEDS: ATORVASTATIN 40 MG TAB PO SCH (08:01)
[2023-01-07] MEDS: CLOPIDOGREL BISULFATE 75 MG TAB PO SCH (08:01)
[2023-01-07] MEDS: METOPROLOL TARTRATE 25 MG TAB PO SCH (08:01)
[2023-01-07] MEDS: lisinopril 20 MG TAB PO SCH (08:01)
[2023-01-07] MEDS: UMECLIDINIUM/VILANTEROL 62.5/25MCG 7 PUFFS/INHALER INH SCH (08:02)
[2023-01-07] MEDS: HEPARIN SOD 5,000 UNIT/0.5 ML VIAL SQ SCH (08:02)
[2023-01-07] MEDS: FLUTICASONE FUROATE 100MCG 14 PUFFS/INHALER INH SCH (08:02)
--- NOTE | 2023-01-08 01:05 | Cardiology Progress Note ---
Date of Service January 08, 2023 Assessment & Plan (1) Acute coronary syndrome: Plan: --post PCI with CIERA to distal SVG to RCA 2. 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 90% LAD, severe ostial LCx/proximal OM. Patent ISBELL-LAD, SVG to OM 3. Preserved LV function - EF 50-55% inferior wall motion abnormality 4. Mild to moderate aortic stenosis 5. Type 2 DM -- A1c 6.0 6. Dyslipidemia -- LDL 90 7. Hypertension Hemodynamically and electrically stable. No recurrent [place] [address] LV function preserved on echo. No Heart failure on exam. No access site complications. From a cardiac standpoint okay with discharge home today. -- Continue DAPT with ASA/Clopidogrel for 1 year. -- Continue home lisinopril, Imdur. -- Replaced home atenolol with metoprolol Follow-up with Dr. Lang in 2 weeks. Discussed cardiac rehab at that time. Admission and Anticipated Discharge Date Admission Date: January 06, 2023 Subjective Feeling well today. No recurrent chest pain. No shortness of breath. Telemetry - no events. Review of Systems Review of Systems: All systems reviewed & are unremarkable except as noted in HPI & below Physical Exam Physical Exam: General: Comfortable HEENT: Sclerae anicteric Lungs: Clear to auscultation bilaterally Cardiac: Regular rate and rhythm, no murmurs Vascular: RT radial artery -- 2+/no ecchymosis/no hematoma. RT FOLDER SEAMER AUTOMATIC - 2+ pulses, tender, no hematoma or ecchymosis. Abdomen: Soft, nontender Extremities: Well perfused, no peripheral edema Neuro: Nonfocal Psych: Alert orient x3, normal affect and mood PG Care Time/CCT Total # of Minutes Spent Total Time Spent with Patient: Total time spent is greater than 50% in coordination of care (as documented) at patient's floor/unit and/or counseling patient: Coding Level of Care Code 12214 SUB INP/OBS CARE 2/35MIN Diagnoses Acute coronary syndrome I24.9
--- NOTE | 2023-01-08 05:58 | Electrocardiogram Report ---
Test Reason : Blood Pressure : / mmHG Vent. Rate : 063 BPM Atrial Rate : 063 BPM P-R Int : 174 ms QRS Dur : 098 ms QT Int : 408 ms P-R-T Axes : 048 066 091 degrees QTc Int : 417 ms Sinus rhythm Premature atrial complexes ST elevation consider inferior injury or acute infarct ACUTE IL / STEMI Consider right ventricular involvement in acute inferior infarct Abnormal ECG When compared with ECG of 25-JAN-2020 01:16, ST elevation now present in Inferior leads ST now depressed in Lateral leads Confirmed by Timbo Morgan ([id number]) on 01/08/2023 5:57:44 AM Referred By: REFERRED SELF Confirmed By:Timbo Morgan
--- NOTE | 2023-01-08 06:02 | Electrocardiogram Report ---
Test Reason : Blood Pressure : / mmHG Vent. Rate : 058 BPM Atrial Rate : 058 BPM P-R Int : 176 ms QRS Dur : 084 ms QT Int : 454 ms P-R-T Axes : 027 057 053 degrees QTc Int : 445 ms Sinus bradycardia Nonspecific ST abnormality Abnormal ECG When compared with ECG of 05-JAN-2023 21:46, ST no longer depressed in Lateral leads ST less elevated in Inferior leads Confirmed by Timbo Morgan ([id number]) on 01/08/2023 6:01:58 AM Referred By: REFERRED SELF Confirmed By:Timbo Morgan
--- NOTE | 2023-01-08 06:11 | Electrocardiogram Report ---
Test Reason : Blood Pressure : / mmHG Vent. Rate : 057 BPM Atrial Rate : 057 BPM P-R Int : 166 ms QRS Dur : 086 ms QT Int : 464 ms P-R-T Axes : 047 056 066 degrees QTc Int : 451 ms Sinus bradycardia with Premature atrial complexes Otherwise normal ECG When compared with ECG of 06-JAN-2023 01:08, Premature atrial complexes are now Present Confirmed by Timbo Morgan ([id number] on 01/08/2023 6:11:06 AM Referred By: REFERRED SELF Confirmed By:Timbo Morgan
--- NOTE | 2023-01-11 02:07 | Billing Data ---
Date of Service January 11, 2023 Coding Level of Care Code 29822 CRITICAL CARE
--- NOTE | 2023-01-19 10:51 | Discharge Summary ---
Date of Service January 19, 2023 Admission HPI Per Admitting Provider Pola Lyon is a 77-year-old male with PMH of CAD status post three-vessel CABG in 1996 at [facility], HTN, HLD, cerebrovascular disease, SNHL, prostate cancer, DM who presented to the ED due to left-sided chest pain of 1 hour duration. Pain described as 7/10 on arrival with radiation to right arm and jaw. He did report an episode of pain previous night, which self resolved. EKG on arrival to ED showed inferior ST elevations and heart alert was called. Patient was also hypertensive to 180s systolic. ST elevations and pain resolved after administration of aspirin and morphine. He was evaluated by Cardiology who recommended proceeding with emergent cardiac catheterization. Per Cardiology, patient's SVG to RCA found to have a 90% acute lesion and received one CIERA. Tolerated procedure without complications and will be transferred to ICU for ongoing monitoring. At this time patient without CP, palp, SOB, n/v, dizziness, MARTINEZ, abd pain. Discharge Data Consultations 01/06/23 01:10 Consult Cardiac Rehabilitation Routine Consult Hospice Bereavement Coordinator Routine Procedures Performed Operation Date: 01/05/23 22:30 Actual Procedures p Aspiration/PCI w/CIERA for Stemi - Mau Ricks MD s Cineradiography w/Routine Exam - Mau Ricks MD s Cath, Cors with Grafts (no LV) - Mau Ricks MD s Ultrasound Vascular Access - Mau Ricks MD Hospital Course (1) Acute coronary syndrome: --post PCI with CIERA to distal SVG to RCA 2. 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 90% LAD, severe ostial LCx/proximal OM. Patent ISBELL-LAD, SVG to OM 3. Preserved LV function - EF 50-55% inferior wall motion abnormality 4. Mild to moderate aortic stenosis 5. Type 2 DM -- A1c 6.0 6. Dyslipidemia -- LDL 90 7. Hypertension Patient presented with 1 hour of acute chest pain and had transient inferior ST elevations on initial ECG. Chest pain, ECG findings improved in ED before went for urgent cardiac catheterization. Found to have an acute on chronic 90% distal SVG/distal RCA anastomosis lesion which was treated with a single CIERA (3.0 x 18 Eddie). Post procedure course was uncomplicated. No recurrent chest pain, no arrhythmias, no apparent access site complications[place] [address]. LV function preserved on echo with inferior wall motion abnormality. Discharged home on hospital day 3 on DAPT with ASA/Clopidogrel. Will follow-up with his primary principal systems engineer Dr. Lang in 2 weeks. Discharge Instructions Home Medications aspirin 81 mg tablet,delayed release 81 mg PO QAM 09/18/19 [History Confirmed 01/05/23] glucosamine sulf dipot chlr,msm,chond 550 mg-C 30 mg-ghazal 1 mg capsule (Glucosamine Chondroitin) 1 cap PO QAM 09/18/19 [History Confirmed 01/05/23] isosorbide mononitrate 30 mg tablet,extended release 24 hr 30 mg PO QAM 09/18/19 [History Confirmed 01/05/23] lisinopril 40 mg tablet 40 mg PO QAM 09/18/19 [History Confirmed 01/05/23] omega 3 350 mg-dha 235 mg-epa 90 mg-fish oil 597 mg capsule,delay rel ([place]-3) 1 cap PO QAM 09/18/19 [History Confirmed 01/05/23] coQ10 (ubiquinol) 200 mg capsule 200 mg PO QAM 01/03/20 [History Confirmed 01/05/23] allopurinol 100 mg tablet 100 mg PO QAM 12/01/21 [History Confirmed 01/05/23] multivitamin (Daily Multi-Vitamin tablet) 1 tab PO DAILY 06/01/22 [History Confirmed 01/05/23] fluticasone fur. 100 mcg-umeclid 62.5 mcg-vilant 25 mcg inhalat.powder (Trelegy Ellipta) 1 inh inhalation DAILY 01/05/23 [History Confirmed 01/05/23] aspirin 81 mg tablet,delayed release 81 mg PO QAM 30 days #30 tabs 01/07/23 [Rx] atorvastatin 40 mg tablet 40 mg PO QAM 30 days #30 tabs 01/07/23 [Rx] clopidogrel 75 mg tablet 75 mg PO QAM 30 days #30 tabs 01/07/23 [Rx] metoprolol tartrate 25 mg tablet 12.5 mg PO BID 30 days #30 tabs 01/07/23 [Rx] Coding Level of Care Code 58208 IN/OBS DISCH 30 MIN/LESS Diagnoses Acute coronary syndrome I24.9
== END 2023-01-07 11:32 | disposition home or self-care (01) | DRG 247 ==
LOC: ED 21:36 → OR 22:30 → SUATTDRO 01-06 01:10 → 1E 01-06 01:10 → 2E 01-06 15:14
PROC: CLB.CCG (2023-01-05 22:30)

== ENCOUNTER 2025-07-10 09:02 | Inpatient (IN) ==
--- NOTE | 2025-07-09 08:49 | Anesthesiology Consultation ---
Date of Service July 09, 2025 Assessment & Plan (1) Encounter for pre-operative examination: - CXR to be ordered DOS per Elza with surgeon's office-order placed-ultimate determination on patient proceeding with surgery will be to assigned anesthesiologist evaluation of patient and DOS CXR. - Case discussed in detail with Dr. Madrigal who advised patient is acceptable to proceed. - cardiology office visit 05/07/25: "...echo prior to OV MG 16 mmHg, EF normal...denies chest pain, pressure or discomfort. Denies FLOWER. Has stairs to climb, without symptoms...CAD s/p CIREA to the RCA in 12/2022 and s/p 3V CABG (1996) with stable CCS class II FLOWER, stable...can stop plavix at this point...aortic stenosis-mild to mod, MG 16...dilated ascending aorta 4.1 cm on echo today...Return in about 1 year..." - Per wastewater technician on 07/04/25: No known infectious disease contacts, current infectious disease symptoms in past 10 days or COVID positive test result in the past 30 days. Chart Review Chart Review: Acceptable Risk for Surgery and Patient NOT seen in Pre Admission Testing History Surgery Operation Date: 07/10/25 10:50 Proposed Procedures p Left Transcarotid Artery Revascularization - Prakash Blanco MD Height/Weight Height: 5 ft 8 in Weight: 74.843 kg Allergies Allergy/AdvReac Type Severity Reaction Status Date / Time grass pollen-perennial rye, Allergy Intermediate RUNNY Verified 07/04/25 09:01 standar NOSE, COUGH ragweed pollen Allergy Intermediate RUNNY Verified 07/04/25 09:01 NOSE/COUGH Medications Home Medications Medication Instructions Recorded Confirmed Last Taken glucosamine sulf dipot 1 cap PO QAM 09/18/19 07/04/25 01/05/23 chlr,msm,chond 550 mg-C 30 mg-ghazal 1 mg capsule (Glucosamine Chondroitin) isosorbide mononitrate 30 mg 30 mg PO QAM 09/18/19 07/04/25 01/05/23 tablet,extended release 24 hr lisinopril 40 mg tablet 40 mg PO QAM 09/18/19 07/04/25 01/05/23 coQ10 (ubiquinol) 200 mg capsule 200 mg PO QAM 03/09/1307/04/25 01/05/23 allopurinol 100 mg tablet 100 mg PO QAM 12/01/21 07/04/25 01/05/23 multivitamin (Daily Multi-Vitamin 1 tab PO QAM 06/01/22 07/04/25 01/05/23 tablet) fluticasone fur. 100 mcg-umeclid 1 inh inhalation QAM 01/05/23 07/04/25 01/05/23 62.5 mcg-vilant 25 mcg inhalat.powder (Trelegy Ellipta) aspirin 81 mg tablet,delayed 81 mg PO QAM 06/08/23 07/04/25 Unknown release evolocumab 140 mg/mL subcutaneous 140 mg subcut UD 02/15/25 07/04/25 Unknown pen injector (Repatha SureClick) clopidogrel 75 mg tablet 75 mg PO QAM 06/27/25 07/04/25 Unknown metoprolol succinate 25 mg 25 mg PO QAM 07/04/25 07/04/25 Unknown tablet,extended release 24 hr Past Medical History Medical History (Updated 07/09/25 @ 09:51 by Domonique Yip PA-C) Aortic stenosis mild to moderate per 04/2025 echo report Atrial septal aneurysm CAD (coronary artery disease) s/p CABG x 3 1996, 1 stent in 2022 Carotid artery stenosis Gout History of myocardial infarction (~2022) 12/2022---had heart cath with 1 stent placed--follows with Dr. Brooke History of prostate cancer 1999--had surgery/radiation HTN (hypertension) Hyperlipidemia Hypertension Osteoarthritis Pre-diabetes no meds SVT (supraventricular tachycardia) patient wasn't sure about this Systolic anterior movement of mitral valve on 2022 echo; no notation on 2024 echo Past Family History Family History Uncle Family hx of colon cancer Heart disease Father Heart disease Mother Heart disease Other No family history of adverse response to anesthesia Past Surgical History Surgical History (Updated 07/09/25 @ 08:47 by Domonique Yip PA-C) H/O right inguinal hernia repair (03/28/20) Right Open Inguinal Hernia Repair with Bard Mesh(Right);excision of cord lipoma Dr. Howard 03/28/20 History of cardiac cath x2--12/2022 @ [facility] with 1 stent placed; prior cath done @ [facility] prior to CABG History of cataract surgery RT/LEFT History of cholecystectomy History of colonoscopy History of prostatectomy History of tooth extraction Hx of CABG 1997 @ [facility]--follows with Dr. Brooke Hx of vasectomy Social History Smoking Status: Current every day smoker tobacco type: cigars Smoking cigarettes per day: 7-8 (advised on policy) Do You Dip or Chew Tobacco: No Hx Alcohol Use: Yes ("3-4 burbon a day") Alcohol type: hard liquor alcohol intake frequency: 3 or more drinks per day Hx Substance Use: No substance use type: does not use Lab Results Anesthesia Preop Results Results Anesthesia Widget: WBC 9.64 K/ul (4.8-10.8) 06/26/25 Hgb 14.0 g/dl (14.0-18.0) 06/26/25 Hct 40.5 % (42.0-52.0) L 06/26/25 Plt 206 K/uL (130-400) 06/26/25 Na 136 mmol/L (136-145) 06/26/25 K 4.6 mmol/L (3.5-5.1) 06/26/25 Cl 102 mmol/L (98-107) 06/26/25 CO2 25 mmol/L (21-32) 06/26/25 BUN 22 mg/dl (6-23) 06/26/25 Creat 0.99 mg/dl (0.6-1.4) 06/26/25 Glucose Level 95 mg/dl (70-99(Fasting)) 06/26/25 Blood Type O Positive 06/26/25 Antibody Screen NEGATIVE 06/26/25 Testing Electrocardiogram Date: 06/26/25 Sinus rhythm with premature atrial complexes with aberrant conduction, rate 81 bpm When compared with ECG of February 16, 2024, Aberrant conduction is now present Nonspecific T wave abnormality now longer evident in anterior leads Echocardiogram Date: 05/07/25 LVEF 55-60% Borderline LVH Dilated ascending aorta 4 cm Mild to moderate aortic stenosis (LYNNE 0.9cm2, mean PG 16 mmHg) Mitral annular calcification Mild LA enlargement Atrial septal aneurysm Cardiac Catheterization Date: 01/06/23 LM -calcified with diffuse disease up to 60% distal LAD -medium caliber, 90% ostial, 90% mid segment stenosis after D2. Competitive flow in mid LAD from ISBELL. Medium D2 with 40% ostial stenosis. Circumflex -small caliber, 90% ostial. 80% proximal stenosis in medium OM with competitive flow RCA -dominant, small caliber, calcified, 50% proximal, 100% chronic occlusion in the midsegment after takeoff of acute marginal. RIMAatretic SVG to OMwidely patent ISBELL to LADwidely patent. Mid to distal LAD after anastomosis without signi ficant disease and wraps around apex. SVG to distal RCA40 to 50% proximal stenosis, 90% stenosis at distal RCA anastomosis with thrombus. Distal RCA heavily calcified. Summary: 1. Acute on chronic 90% distal SVG/distal RCA anastomotic lesion 2. Widely patent ISBELL to LAD and SVG to OM. 3. Chronic [place] multivessel coronary artery disease 60% distal left main 90% ostial, 90% mid LAD 90% ostial circumflex, 80% proximal OM 100% mid RCA chronic total occlusion 4. Successful PCI of SVG to distal RCA with single drug-eluting stent (3.0 x 18 mm Eddie; postdilated with 3.5 NC). Other Testing Neck CTA 05/01/25 1. Advanced atherosclerotic plaque of the left carotid bulb redemonstrated causing high-grade stenosis at the proximal cervical segment left ICA, mildly progressed compared to the 2014 study. 2. High-grade stenosis at the origin of the right vertebral artery.
--- NOTE | 2025-07-09 13:51 | History & Physical Report ---
Date of Service July 09, 2025 Assessment & Plan (1) Left carotid stenosis: Plan: Patient admitted for a left tcar. I have discussed the risks options and benefits of the procedure with the patient. The patient understands the risks options and benefits and agrees to the procedure. History of Present Illness Chief Complaint: Left carotid stenosis Primary Care Provider: Gretta Lyon is a 79 year old male who presents for a follow-up appointment regarding his history of carotid artery stenosis. Patient continues to deny any symptoms of cerebrovascular insufficiency including amaurosis, unilateral extremity weakness numbness or tingling, difficulty speaking or swallowing, facial droop, sudden onset confusion. He does state to having some weakness in his legs that has been present for years and is bilateral and he states it just feels like it is atrophy from lack of use. He also denies any numbness tingling or pins and needle sensation. He is able to do his activities of daily living with no difficulty. Patient states in the past he has had episodes of feeling off balance. These are intermittent. He is on [id number] but states he takes it every other day because it causes bruising on his arms. He is on Repatha and is compliant with this. His carotid ultrasound performed during his last appointment demonstrated 70 to 79% stenosis in the left ICA based on velocity criteria, with an ICA/CCA ratio of 3.8 and a end-diastolic velocity of 89.4 cm/s. This was similar to previous imaging, but his EDV was increased. We recommended a CTA of the neck and he comes today to discuss the results. There is high grade stenosis of the proximal left ICA. Of note, there is also high grade stenosis at the origin of the right vertebral artery. Allergies Allergy/AdvReac Type Severity Reaction Status Date / Time grass pollen-perennial rye, Allergy Intermediate RUNNY Verified 07/04/25 09:01 standar NOSE, COUGH ragweed pollen Allergy Intermediate RUNNY Verified 07/04/25 09:01 NOSE/COUGH Home Medications Medication Instructions Recorded Confirmed Type glucosamine sulf dipot 1 cap PO QAM 09/18/19 07/04/25 History chlr,msm,chond 550 mg-C 30 mg-ghazal 1 mg capsule (Glucosamine Chondroitin) isosorbide mononitrate 30 mg 30 mg PO QAM 09/18/19 07/04/25 History tablet,extended release 24 hr lisinopril 40 mg tablet 40 mg PO QAM 09/18/19 07/04/25 History coQ10 (ubiquinol) 200 mg capsule 200 mg PO QAM 01/03/20 07/04/25 History allopurinol 100 mg tablet 100 mg PO QAM 12/01/21 07/04/25 History multivitamin (Daily Multi-Vitamin 1 tab PO QAM 06/01/22 07/04/25 History tablet) fluticasone fur. 100 mcg-umeclid 1 inh inhalation QAM 01/05/23 07/04/25 History 62.5 mcg-vilant 25 mcg inhalat.powder (Trelegy Ellipta) aspirin 81 mg tablet,delayed 81 mg PO QAM 06/08/23 07/04/25 History release evolocumab 140 mg/mL subcutaneous 140 mg subcut UD 02/15/25 07/04/25 History pen injector (Repatha SureClick) clopidogrel 75 mg tablet 75 mg PO QAM 06/27/25 07/04/25 History metoprolol succinate 25 mg 25 mg PO QAM 07/04/25 07/04/25 History tablet,extended release 24 hr Past Med/Surg History Problem List (Updated 07/09/25 @ 13:50 by Prakash Blanco MD) Left carotid stenosis Presence of coronary artery bypass graft stent CAD (coronary artery disease) of artery bypass graft Contusion, hip Degenerative arthritis of lumbar spine Lumbar radiculopathy History of colon polyps Proteinuria Poorly-controlled hypertension Impacted cerumen of both ears Sensorineural hearing loss (SNHL) of both ears SVT (supraventricular tachycardia) Prostate cancer RADIATION [place] AND SURGERY Prediabetes Tubular adenoma of colon (Acute) Cerebrovascular disease Paroxysmal SVT (supraventricular tachycardia) Carcinoma of prostate Wheezing Diabetes mellitus no meds Hyperlipemia HTN (hypertension), benign Encounter for pre-operative examination Medical History Atrial septal aneurysm Systolic anterior movement of mitral valve on 2022 echo; no notation on 2024 echo Aortic stenosis mild to moderate per 04/2025 echo report SVT (supraventricular tachycardia) patient wasn't sure about this CAD (coronary artery disease) s/p CABG x 3 1996, 1 stent in 2022 Hypertension Pre-diabetes no meds History of prostate cancer 1999--had surgery/radiation Carotid artery stenosis History of myocardial infarction (~2022) 12/2022---had heart cath with 1 stent placed--follows with Dr. Brooke Gout Osteoarthritis Hyperlipidemia HTN (hypertension) Surgical History H/O right inguinal hernia repair (03/28/20) Right Open Inguinal Hernia Repair with Bard Mesh(Right);excision of cord lipoma Dr. Howard 03/28/20 History of colonoscopy History of cholecystectomy Hx of vasectomy History of prostatectomy History of tooth extraction History of cataract surgery RT/LEFT History of cardiac cath x2--12/2022 @ [facility] with 1 stent placed; prior cath done @ [facility] prior to CABG Hx of CABG 1997 @ [facility]--follows with Dr. Brooke Family History Uncle Family hx of colon cancer Heart disease Father Heart disease Mother Heart disease Other No family history of adverse response to anesthesia Social History Smoking Status: Current every day smoker Tobacco Type: Cigars Age Started Using Tobacco: 55; Cigarettes Per Day: 7-8 (advised on policy); Second Hand Exposure: No; Do You Dip or Chew Tobacco: No; Tobacco Cessation Education Requested by Patient: No Hx Alcohol Use: Yes ("3-4 burbon a day") Alcohol type: hard liquor Alcohol Intake Frequency: 4 or More x per/Week Alcohol Intake Frequency Comment: 3-4/day Hx Substance Use: No Preferred Language: French 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 BP 110/60 Pulm- No increased work of breathing on RA, Sat 97% Heart- RRR Ext- Warm well perfused BUE and BLE. Motor strength 5/5 throughout. Sensation is intact throughout. Neuro- AAOx3, cooperative. No aphasia or facial droop. CN II-XII grossly intact. Extremities as above.
--- NOTE | 2025-07-10 09:36 | XRay Report ---
XR chest 1V portable CLINICAL HISTORY: pre op COMPARISON STUDY: 01/05/2023 FINDINGS: Stable CABG. Heart size and pulmonary vasculature are normal. No consolidation or pleural e ffusion. No pneumothorax. IMPRESSION: No acute findings. ACT 112: Negative or not required by law. Electronically signed by: Qamar Smith M.D. 07/10/2025 9:35 AM
[2025-07-10] MEDS: LACTATED RINGER'S 1,000 ML BAG IV SCH (09:54)
--- NOTE | 2025-07-10 10:28 | History & Physical Bridge Note ---
Date of Service July 10, 2025 History & Physical Bridge Note I have examined the patient, reviewed the History & Physical and in the interval since the performance of the History & Physical I have noted the following changes of clinical significance: no changes noted
[2025-07-10] MEDS ORDERED: VISIPAQUE IV PRN (11:14)
[2025-07-10] MEDS ORDERED: FLUMAZENIL 0.1 MG/1 ML 10 ML VIAL IV PRN (11:24)
[2025-07-10] MEDS ORDERED: PROMETHAZINE HCL 6.25 MG in SODIUM CHLORIDE 0.9% 50 ML IV PRN (11:24)
[2025-07-10] MEDS ORDERED: ATROPINE SULFATE 0.1 MG/ML 10ML SYR IV PRN (11:24)
[2025-07-10] MEDS ORDERED: NALOXONE HCL 0.4 MG/1 ML VIAL/CARP IV PRN (11:24)
[2025-07-10] MEDS ORDERED: ONDANSETRON INJ 2 MG/ML 2 ML VIAL IV PRN ×2 (11:24→15:41)
[2025-07-10] MEDS ORDERED: HEPARIN SOD (PORCINE) 1000 UNIT/ML ONE (11:36)
[2025-07-10] MEDS ORDERED: ETOMIDATE 2 MG/ML 20 ML VIAL IV ONE (11:38)
[2025-07-10] MEDS ORDERED: MIDAZOLAM HCL 1 MG/ML 2ML VIAL ONE (11:38)
[2025-07-10] MEDS ORDERED: PROPOFOL IV EMULSION 10 MG/ML 20 ML VIAL IV ONE (11:38)
[2025-07-10] MEDS ORDERED: SUCCINYLCHOLINE CHLORIDE 20 MG/ML 10 ML VIAL IV ONE (11:39)
[2025-07-10] MEDS: CEFAZOLIN 2,000 MG/15 ML SYR IV SCH (11:47)
[2025-07-10] MEDS ORDERED: GLYCOPYRROLATE 0.2 MG/ML VIAL ONE ×3 (12:30→13:14)
[2025-07-10] MEDS ORDERED: VASOPRESSIN 20 UNIT/ML VIAL ONE (12:32)
[2025-07-10] MEDS ORDERED: PROTAMINE SULFATE 10 MG/ML 5 ML VIAL IV ONE (13:30)
--- NOTE | 2025-07-10 13:35 | Post Operative Brief Note ---
Immediate Post Op Note Date of Surgery July 10, 2025 Pre & Post Diagnosis Operation Date: 07/10/25 10:50 Pre-Op Diagnosis: Left Internal Carotid Artery Stenosis Post-Op Diagnosis: Left Internal Carotid Artery Stenosis I identified the patient and participated in the time-out.: Yes Procedure Operation Date: 07/10/25 10:50 Actual Procedures p Left Transcarotid Artery Revascularization(Left), Ultrasound localization of left common femoral vein - Prakash Blanco MD Surgeon Prakash Blanco MD Turnaround Planner MD Josue AnguianoMinarchbecka,PAC Estimated Blood Loss 10 Findings Consistent with Post-Op Diagnosis Anesthesia Type General Complications none Disposition Accompanied Patient To Recovery: No Disposition: Recovery Room
[2025-07-10] MEDS: BUPIVACAINE/EPINEPHRINE 0.5% MPF 1:200,000 30 ML VIAL ONE (13:52)
[2025-07-10] MEDS: THROMBIN FOR SOLN 20000 UNIT KIT ONE (13:53)
[2025-07-10] MEDS: GELATIN SPONGE SZ 100 ONE (13:53)
[2025-07-10] MEDS: SURGICEL ABSORB HEMOSTAT 2IN X 14IN TOP ONE (13:54)
[2025-07-10] MEDS: ceFAZolin 330 MG/ML 1 GM VIAL ONE (13:54)
[2025-07-10] MEDS ORDERED: SUGAMMADEX SODIUM 200 MG/2 ML VIAL IV ONE (13:57)
--- NOTE | 2025-07-10 14:00 | Operative Report ---
Post Operative Report Pre & Post Diagnosis Operation Date: 07/10/25 10:50 Pre-Op Diagnosis: Left Internal Carotid Artery Stenosis Post-Op Diagnosis: Left Internal Carotid Artery Stenosis I identified the patient and participated in the time-out.: Yes Procedure Operation Date: 07/10/25 10:50 Actual Procedures p Left Transcarotid Artery Revascularization(Left), Ultrasound localization of left common femoral vein - Prakash Blanco MD Surgeon Surgeon Prakash Blanco MD Ripsaw Grader MD Annmarie LGeovannaMinarchick,PAC Estimated Blood Loss 50 Findings Consistent with Post-Op Diagnosis ICA and CCA patent without residual stenosis on competion angiography. Pt moving all extremities on conclusion of the case. Fluids Per anesthesia. Specimens No specimen. Drains No drain. Anesthesia Type General Complications None apparent complications. Indications High grade asymptomatic carotid stenosis. Description of Procedure The patient was brought to the operating room, where lines were placed and general anesthesia was accomplished by anesthesia team. A shoulder roll was simona alejandra and the neck was rotated towards the right side of the patient. The left neck and bilateral groins were prepped and patient was draped in the usual sterile fashion. A timeout was performed identifying the correct patient by name, procedure, and location of procedure and all were in agreement. A 4cm transverse incision was made between the sternal and clavicular heads of the sternocleidomastoid muscle. The muscle heads were retracted to each side and the carotid sheath was identified. Using blunt dissection, the carotid sheath was opened and 3cm of common carotid artery (CCA) were isolated. Umbilical tape was placed around the proximal CCA under direct visualization. A 5-0 prolene U- stitch was pre-placed in the anterior wall of the CCA to facilitate hemostasis after removal of the arterial sheath at completion of the procedure. The patient was given 8000 units of IV heparin. The left common femoral vein was accessed under ultrasound guidance, using a micropuncture needle and a wire and sheath were placed using modified Seldinger technique. The venous return sheath was advanced into the common femoral vein over the 0.035" wire. Blood was aspirated from the flow line and the sheath was flushed with heparinized saline.The sheath was secured to the patient's skin with a 2-0 silk stitch to maintain position in the vessel. ACT was confirmed to be above 250 seconds prior to arterial access. A 4-Icelandic non-stiffened micropuncture set was used, puncturing the artery with a 21G needle through the pre-placed U-stitch while holding gentle traction on the umbilical tape to stabilize the CCA within the incision. The micropuncture wire was advanced 3-4cm into the CCA and the 21G needle removed. The micropuncture sheath was advanced 3cm into the CCA and the wire and dilator were removed. A cerebral angiogram was obtained after ensuring there were no air bubbles in the system. The J-tipped guidewire was inserted after micropuncture sheath removal, the transcarotid arterial sheath was advanced to the 3rd marker and the 0.035" wire and dilator were removed. Arterial sheath position was assessed under fluoroscopy. The arterial sheath was sutured to the patient at two sites. The Flow Controller was connected to the transcarotid arterial sheath, prepared by passively allowing arterial blood to backfill the line and then it was connected to the venous return sheath. The CCA was clamped proximally with a Belle tourniquet to ensure active flow reversal. Heparinized saline was delivered into the venous flow line to confirm adequate flow reversal. A TCAR timeout was performed, heart rate was >70bpm and systolic BP was >140mmHg. Patient had been pretreated with glycopyrrolate and atropine was available. The lesion was crossed with an 0.014" guidewire and pre-dilation balloon angioplasty was performed with a 5.5x25mm [employer] rapid exchange balloon to 8 atmospheres for about 10 seconds. A 9-7x30mm ENROUTE transcarotid stent was placed, sized to the right CCA. A second 9-7x40mm ENROUTE transcarotid stent was placed. Completion angiography was performed showing appropriate stent position with good wall apposition. Post-dilation balloon angioplasty was performed with a 6x35 balloon. At TCAR case completion, antegrade flow was restored by releasing the tourniquet on the CCA and closing the stopcocks to the flow lines. The total clamp time was 28 minutes. The transcarotid arterial sheath was removed and the pre-placed suture was tied. 25 of protamine were given. A repeat ACT was obtained and was 124. The venous return sheath was removed and hemostasis achieved with manual compression. The neck incision was irrigated with antibiotic solution and was hemostatic before closure. The platysma was approximated with 3-0 Vicryl running suture and the skin was closed with 4-0 running Vicryl suture and covered with Dermabond. The patient tolerated the procedure well and was extubated in the operating room. He was moving all four extremities to command prior to transfer to the recovery room. All counts were correct at the end of the procedure. Fluoroscopy time was 6.4 minutes, radiation dose was 64mGy and 18cc of contrast were used. Dr. Blanco was present and participated in all critical parts of the procedure. I attest to the content of the Intraoperative Record and any orders documented therein. Any exceptions are noted below.
[2025-07-10] MEDS ORDERED: ALBUMIN HUMAN 5% 12.5 GM/250 ML VIAL IV ONE (14:26)
[2025-07-10] MEDS: ALBUMIN 5% 250 ML IV ONE (14:43)
[2025-07-10] MEDS: PHENYLEPHRINE/NSS 25 MG/250 ML BAG IV PRN ×2 (14:47→16:30)
--- NOTE | 2025-07-10 15:22 | Anesthesiology Progress Note ---
Date of Service July 10, 2025 Anesthesia Post Procedure Vital Signs Vital Signs: Temp Pulse Pulse Resp BP BP BP 07/10/25 15:15 57 L 16 133/59 L 144/57 H 07/10/25 15:05 36.4 C L 59 L 16 158/72 H 175/71 H 07/10/25 14:55 59 L 17 116/60 136/57 L 07/10/25 14:45 60 15 80/40 L 86/35 L 07/10/25 14:35 57 L 17 126/72 141/67 H 07/10/25 14:25 65 15 66/38 L 65/30 L 07/10/25 14:18 36 C L 63 17 67/37 L 105/101 H 07/10/25 09:30 36.8 C 60 18 129/68 121/72 Pulse Ox O2 Del Method O2 Flow Rate 07/10/25 15:15 99 Nasal Cannula 2 07/10/25 15:05 100 Nasal Cannula 4 07/10/25 14:55 98 Nasal Cannula 4 07/10/25 14:45 88 L Oxymask 5 07/10/25 14:35 99 Oxymask 5 07/10/25 14:25 95 Oxymask 5 07/10/25 14:18 Oxymask 5 07/10/25 09:30 98 Room Air Pain Intensity Neck: Pain Intensity: 4 Transfer of Care Handoff Completed per policy Notes Mental Status: alert / awake / arousable and participated in evaluation Patient Amnestic to Procedure: Yes Nausea / Vomiting: adequately controlled Pain: adequately controlled Airway Patency, RR, SpO2: stable & adequate BP & HR: stable & adequate and see Notes below Hydration State: stable & adequate Anesthetic Complications: no major complications apparent and Pt Satisfied with anesthetic care Notes: bp improved post op with fluids and initiation of phenylephrine ggt. pt conversant with only minimal pain.
[2025-07-10] MEDS ORDERED: STAT IV Infusion **Titration per Protocol STA (15:41)
[2025-07-10] MEDS: LACTATED RINGER'S 1,000 ML IV SCH (16:19)
--- NOTE | 2025-07-10 18:09 | Critical Care Consultation ---
Date of Consultation July 10, 2025 Assessment & Plan (1) Left carotid stenosis: (2) Presence of coronary artery bypass graft stent: (3) CAD (coronary artery disease) of artery bypass graft: (4) Contusion, hip: Plan Mr Lyon is a 80 Y O Male with PMH of CAD, HTN, SNHL of both ears, Prostate Cancer, DM, Hyperlipidemia . He had left Transcarotid artery revascularization today for 70-79% stenosis in the left ICA. He is being admitted in the ICU for monitoring post procedure. #cardiovascular -h/o CAD s/p PCI with CIERA to distal SVG to RCA -Continue aspirin and clopidogrel -left TCAR performed today. Stable following the procedure #Respiratory -Stable -Maintaining saturation on RA #Gastrointestinal -No acute complaints -Liquid diet to be started with dinner #Renal/fluid -RL @125ml/hr #DVT prophylaxis: -SCDs #Endocrinology -ICU hypoglycemia protolol #IV line PIV #code -full Supervising Physician Co-Signing Physician Notes Dr. Watts was resident physician during care of patient. I separately evaluated patient for drummond portions of the history and the exam. I was present during the critical portion of medical decision making, and I discussed the case with the resident. I generally agree with the findings and plan. Requiring phenylephrine for blood pressure support, started midodrine. Not withstanding critical care will sign off the patient at this time. History of Present Illness Reason for Consultation: Left Transcarotid artery Revascularization surgery Attending Physician: Prakash Blanco MD History of Present Illness Mr Lyon is a 79 year old male who presents for a follow-up appointment r egarding his history of carotid artery stenosis. Patient continues to deny any symptoms of cerebrovascular insufficiency including amaurosis, unilateral extremity weakness numbness or tingling, difficulty speaking or swallowing, facial droop, sudden onset confusion. He does state to having some weakness in his legs that has been present for years and is bilateral and he states it just feels like it is atrophy from lack of use. He also denies any numbness tingling or pins and needle sensation. He is able to do his activities of daily living with no difficulty. Patient states in the past he has had episodes of feeling off balance. These are intermittent. He is on [id number] but states he takes it every other day because it causes bruising on his arms. He is on Repatha and is compliant with this. His carotid ultrasound performed during his last appointment demonstrated 70 to 79% stenosis in the left ICA based on velocity criteria, with an ICA/CCA ratio of 3.8 and a end-diastolic velocity of 89.4 cm/s. This was similar to previous imaging, but his EDV was increased. We recommended a CTA of the neck and he comes today to discuss the results. There is high grade stenosis of the proximal left ICA. Of note, there is also high grade stenosis at the origin of the right vertebral artery Allergies Allergy/AdvReac Type Severity Reaction Status Date / Time grass pollen-perennial rye, Allergy Intermediate RUNNY Verified 07/10/25 09:19 standar NOSE, COUGH ragweed pollen Allergy Intermediate RUNNY Verified 07/10/25 09:19 NOSE/COUGH Home Medications Medication Instructions Recorded Confirmed Type glucosamine sulf dipot 1 cap PO QAM 09/18/19 07/10/25 History chlr,msm,chond 550 mg-C 30 mg-ghazal 1 mg capsule (Glucosamine Chondroitin) isosorbide mononitrate 30 mg 30 mg PO QAM 09/18/19 07/10/25 History tablet,extended release 24 hr lisinopril 40 mg tablet 40 mg PO QAM 09/18/19 07/10/25 History coQ10 (ubiquinol) 200 mg capsule 200 mg PO QAM 01/03/20 07/10/25 History allopurinol 100 mg tablet 100 mg PO QAM 12/01/21 07/10/25 History multivitamin (Daily Multi-Vitamin 1 tab PO QAM 06/01/22 07/10/25 History tablet) fluticasone fur. 100 mcg-umeclid 1 inh inhalation QAM 01/05/23 07/10/25 History 62.5 mcg-vilant 25 mcg inhalat.powder (Trelegy Ellipta) aspirin 81 mg tablet,delayed 81 mg PO QAM 06/08/23 07/10/25 History release evolocumab 140 mg/mL subcutaneous 140 mg subcut UD 02/15/25 07/10/25 History pen injector (Reparunaa SureClick) clopidogrel 75 mg tablet 75 mg PO QAM 06/27/25 07/10/25 History metoprolol succinate 25 mg 25 mg PO QAM 07/04/25 07/10/25 History tablet,extended release 24 hr Patient History Medical History Atrial septal aneurysm Systolic anterior movement of mitral valve on 2022 echo; no notation on 2024 echo Aortic stenosis mild to moderate per 04/2025 echo report SVT (supraventricular tachycardia) patient wasn't sure about this CAD (coronary artery disease) s/p CABG x 3 1996, 1 stent in 2022 Hypertension Pre-diabetes no meds History of prostate cancer 1999--had surgery/radiation Carotid artery stenosis History of myocardial infarction (~2022) 12/2022---had heart cath with 1 stent placed--follows with Dr. Brooke Gout Osteoarthritis Hyperlipidemia HTN (hypertension) Surgical History H/O right inguinal hernia repair (03/28/20) Right Open Inguinal Hernia Repair with Bard Mesh(Right);excision of cord lipoma Dr. Howard 03/28/20 History of colonoscopy History of cholecystectomy Hx of vasectomy History of prostatectomy History of tooth extraction History of cataract surgery RT/LEFT History of cardiac cath x2--12/2022 @ [facility] with 1 stent placed; prior cath done @ [facility] prior to CABG Hx of CABG 1997 @ [facility]--follows with Dr. Brooke Family History Uncle Family hx of colon cancer Heart disease Father Heart disease Mother Heart disease Other No family history of adverse response to anesthesia Social History Smoking Status: Current every day smoker Tobacco Type: Cigars Age Started Using Tobacco: 55; Cigarettes Per Day: 7-8 (advised on policy); Second Hand Exposure: No; Do You Dip or Chew Tobacco: No; Tobacco Cessation Education Requested by Patient: No Hx Alcohol Use: Yes ("3-4 burbon a day") Alcohol type: hard liquor Alcohol Intake Frequency: 4 or More x per/Week Alcohol Intake Frequency Comment: 3-4/day Hx Substance Use: No Preferred Language: Spanish Communication Ability: Effective Rum Processing Operator Required: No Beliefs That Will Affect Care: None Current Living Situation: Spouse current occupation: Retired Other Information That Helps Us Care for You: No Feels Safe at Home: Yes Safety Concerns: Feels Safe At This Time Assistive Devices: Glasses and Hearing Aid - Bilateral Assistive Devices Comment: reading glasses Review of Systems Review of Systems: As per HPI Physical Exam Physical Exam: Constitutional: Well appearing, No acute distress, PILCCOD: Negative HEENT: Atraumatic, Normocephalic, No conjunctival injection CVS: S1 S2 no murmur, Regular Rhythm, no LE edema Respiratory: BL equal air entry with NVBS. No rhonchi, wheezes, or crackles. No increased work of breathing GI: Soft, Nondistended, Nontender, Normal Bowel sounds + MSK: No gross deformities noted Skin: Warm, Dry, No rashes Neuro: Alert, Oriented to TPP, No Focal deficit Psych: Mood and Affect congruent, Cooperative on exam Results & Data Results & Data Vital Signs (Past 12 Hours) Vital Signs Temp Pulse Pulse Pulse Resp BP BP 07/10/25 17:34 53 L 15 07/10/25 16:30 53 L 17 07/10/25 16:03 55 L 24 104/57 L 07/10/25 16:00 56 L 07/10/25 15:54 53 L 20 07/10/25 15:48 55 L 16 07/10/25 15:30 07/10/25 15:15 57 L 16 07/10/25 15:05 36.4 C L 59 L 16 07/10/25 14:55 59 L 17 07/10/25 14:45 60 15 07/10/25 14:35 57 L 17 07/10/25 14:25 65 15 07/10/25 14:18 36 C L 63 17 07/10/25 09:30 36.8 C 60 18 129/68 BP BP Pulse Ox O2 Del Method O2 Flow Rate 07/10/25 17:34 137/48 L 94 Room Air 07/10/25 16:30 145/56 H 97 Room Air 07/10/25 16:03 95 07/10/25 16:00 07/10/25 15:54 96 07/10/25 15:48 110/52 L 124/49 L 95 Room Air 07/10/25 15:30 Room Air 07/10/25 15:15 133/59 L 144/57 H 99 Nasal Cannula 2 07/10/25 15:05 158/72 H 175/71 H 100 Nasal Cannula 4 07/10/25 14:55 116/60 136/57 L 98 Nasal Cannula 4 07/10/25 14:45 80/40 L 86/35 L 88 L Oxymask 5 07/10/25 14:35 126/72 141/67 H 99 Oxymask 5 07/10/25 14:25 66/38 L 65/30 L 95 Oxymask 5 07/10/25 14:18 67/37 L 105/101 H Oxymask 5 07/10/25 09:30 121/72 98 Room Air Coding Level of Care Code 26120 INT INP/OBS CARE 1/40MIN Diagnoses Left carotid stenosis I65.22 Presence of coronary artery bypass graft stent Z95.5; Z95.1 CAD (coronary artery disease) of artery bypass graft I25.810 Contusion, hip S70.00XA Resident Activity Tracking Resident Involvement: Resident Care Provided Care Provided: Adult Hospital Medicine
[2025-07-11] MEDS: UMECLIDINIUM/VILANTEROL 62.5/25MCG 7 PUFFS/INHALER INH SCH (07:51)
[2025-07-11] MEDS: FLUTICASONE FUROATE 100MCG 14 PUFFS/INHALER INH SCH (07:51)
[2025-07-11] MEDS: CLOPIDOGREL BISULFATE 75 MG TAB PO SCH (07:52)
[2025-07-11] MEDS: ASPIRIN 81 MG ECTAB PO SCH (07:52)
[2025-07-11] MEDS: ISOSORBIDE MONO EXTENDED REL 30 MG TABCR PO SCH (07:52)
[2025-07-11] MEDS: MULTIVITAMIN TAB PO SCH (07:52)
[2025-07-11] MEDS: METOPROLOL SUCC 25MG EXT REL TAB PO SCH (07:59)
--- NOTE | 2025-07-11 08:42 | Critical Care Progress Note ---
Date of Service July 11, 2025 Assessment & Plan (1) Left carotid stenosis: (2) Presence of coronary artery bypass graft stent: (3) CAD (coronary artery disease) of artery bypass graft: (4) Contusion, hip: Plan Mr Lyon is a 80 Y O Male with PMH of CAD, HTN, SNHL of both ears, Prostate Cancer, DM, Hyperlipidemia . He had left Transcarotid artery revascularization today for 70-79% stenosis in the left ICA. He was admitted in the ICU for monitoring post procedure. No any events post procedure and he is stable for downgrade. #cardiovascular -h/o CAD s/p PCI with CIERA to distal SVG to RCA -Continue aspirin and clopidogrel -left TCAR performed yesterday Stable following the procedure #Respiratory -Stable -Maintaining saturation on RA #Gastrointestinal -No acute complaints -Liquid diet to be started with dinner #Renal/fluid -RL @125ml/hr #DVT prophylaxis: -SCDs #Endocrinology -ICU hypoglycemia protocol #IV line PIV #code -full Admission and Anticipated Discharge Date Admission Date: July 10, 2025 Milagro Was seen this morning along with his in the bedside. He was taking his breakfast. Doing well. Denies any discomfort, dizziness, headache. n/v. Review of Systems Review of Systems: As per HPI Physical Exam Physical Exam: Constitutional: Well appearing, No acute distress, PILCCOD: Negative HEENT: Atraumatic, Normocephalic, No conjunctival injection CVS: S1 S2 no murmur, Regular Rhythm, no LE edema Respiratory: BL equal air entry with NVBS. No rhonchi, wheezes, or crackles. No increased work of breathing GI: Soft, Nondistended, Nontender, Normal Bowel sounds + MSK: No gross deformities noted Skin: Warm, Dry, No rashes Neuro: Alert, Oriented to TPP, No Focal deficit Psych: Mood and Affect congruent, Cooperative on exam Results & Data Results & Data Vital Signs (Past 12 Hours) Vital Signs Temp Pulse Resp BP Pulse Ox O2 Del Method 07/11/25 08:03 56 L 14 95 07/11/25 08:00 Room Air 07/11/25 08:00 56 L 07/11/25 08:00 56 L 07/11/25 07:49 100/41 L 07/11/25 07:36 54 L 16 94 07/11/25 07:34 100/40 L 07/11/25 07:26 Room Air 07/11/25 07:26 54 L 07/11/25 07:26 54 L 07/11/25 07:06 52 L 23 94 07/11/25 07:00 120/45 L 07/11/25 07:00 36.8 C 20 07/11/25 06:51 52 L 14 96 07/11/25 06:30 52 L 14 93 07/11/25 06:03 54 L 12 93 07/11/25 06:00 120/48 L 07/11/25 05:42 51 L 13 94 07/11/25 05:00 107/68 07/11/25 04:54 74 21 94 07/11/25 04:45 58 L 15 93 07/11/25 04:00 105/47 L 07/11/25 04:00 59 L 13 91 07/11/25 04:00 37 C 07/11/25 03:45 55 L 21 95 07/11/25 03:39 52 L 21 93 07/11/25 03:24 63 19 91 07/11/25 03:03 48 L 20 92 07/11/25 03:01 121/45 L 07/11/25 03:01 121/45 L 07/11/25 03:01 121/45 L 07/11/25 03:01 121/45 L 07/11/25 02:45 50 L 17 93 07/11/25 02:03 66 21 93 07/11/25 02:01 120/55 L 07/11/25 02:01 120/55 L 07/11/25 01:54 56 L 17 96 07/11/25 01:27 54 L 14 96 07/11/25 01:12 49 L 14 94 07/11/25 01:00 119/51 L 07/11/25 01:00 119/51 L 07/11/25 01:00 36.7 C 07/11/25 00:48 67 18 93 07/11/25 00:30 55 L 14 91 07/11/25 00:24 58 L 21 92 07/11/25 00:00 57 L 13 93 07/11/25 00:00 105/50 L 07/11/25 00:00 105/50 L 07/11/25 00:00 56 L 07/10/25 23:21 51 L 19 93 07/10/25 23:00 59 L 17 96 07/10/25 23:00 109/52 L 07/10/25 23:00 36.8 C 07/10/25 22:30 53 L 14 90 07/10/25 22:27 59 L 16 92 07/10/25 22:00 104/51 L 07/10/25 22:00 104/51 L 07/10/25 22:00 104/51 L 07/10/25 22:00 36.6 C 07/10/25 21:57 52 L 18 95 07/10/25 21:33 48 L 13 96 07/10/25 21:18 47 L 19 92 07/10/25 21:00 53 L 19 92 Coding Level of Care Code None Diagnoses Left carotid stenosis I65.22 Presence of coronary artery bypass graft stent Z95.5; Z95.1 CAD (coronary artery disease) of artery bypass graft I25.810 Contusion, hip S70.00XA Resident Activity Tracking Resident Involvement: Resident Care Provided Care Provided: Adult Hospital Medicine
[2025-07-11] MEDS: MIDODRINE HCL 10 MG TAB PO SCH (08:51)
[2025-07-11] MEDS ORDERED: NON-FORMULARY MEDICATION (Fluticasone-Umeclidin-Vilanter [Trelegy Ellipta] 100-62.5-25 mcg INH SCH (09:00)
[2025-07-11] MEDS ORDERED: NON-FORMULARY MEDICATION (Coq10 (Ubiquinol) 200 mg Capsule) PO SCH (09:00)
[2025-07-11] MEDS ORDERED: NON-FORMULARY MEDICATION (Glucos Sul 2kcl-Msm-Chond-C-Mn [Glucosamine Chondroitin] 550-30- PO SCH (09:00)
--- NOTE | 2025-07-11 09:47 | Billing Data ---
Date of Service July 11, 2025 Coding Level of Care Code 23324 SUB INP/OBS CARE
--- NOTE | 2025-07-11 12:47 | Surgery Progress Note ---
Date of Service July 11, 2025 Assessment & Plan (1) Left carotid stenosis: Plan: POD #1 from left tcar. Doing well except for decrease BP when sleeping. Started on midodrine today. Admission and Anticipated Discharge Date Admission Date: July 10, 2025 Subjective Patient awake and alert. No complaints of focal deficits. Does drop his pressure when sleeping. BP ok when awake. Physical Exam Constitutional: WD/WN, vitals as above Respiratory: normal respiratory effort; no respiratory distress Cardiovascular: Rate/Rhythm: regular rate and regular rhythm Skin: + incision (dry and clean) Neurologic: CN's II-XI intact bilaterally and moves all extremities Psychiatric: A+Ox3, euthymic affect Results & Data Vital Signs (Past 12 Hours) Vital Signs Temp Pulse Pulse Resp BP BP Pulse Ox 07/11/25 12:30 122/57 L 07/11/25 12:30 122/57 L 07/11/25 12:30 55 L 15 95 07/11/25 12:15 100/54 L 07/11/25 12:09 48 L 12 95 07/11/25 12:06 62 16 92 07/11/25 12:00 100/50 L 07/11/25 12:00 69 100/54 L 07/11/25 11:54 57 L 19 95 07/11/25 11:52 97/46 L 07/11/25 11:51 50 L 14 93 07/11/25 11:45 100/54 L 07/11/25 11:45 69 10 L 92 07/11/25 11:42 64 22 90 07/11/25 11:30 110/59 L 07/11/25 11:27 72 25 H 94 07/11/25 11:16 100/54 L 07/11/25 11:09 60 17 89 L 07/11/25 11:03 63 13 94 07/11/25 11:00 99/53 L 07/11/25 11:00 36.8 C 65 16 106/45 L 95 07/11/25 10:54 52 L 6 L 92 07/11/25 10:45 100/46 L 07/11/25 10:39 45 L 8 L 92 07/11/25 10:30 105/50 L 07/11/25 10:30 47 L 13 93 07/11/25 10:15 52 L 13 93 07/11/25 10:09 68 17 94 07/11/25 10:01 105/50 L 07/11/25 09:54 69 23 94 07/11/25 09:48 68 17 94 07/11/25 09:46 115/42 L 07/11/25 09:33 54 L 10 L 95 07/11/25 09:30 119/55 L 07/11/25 09:15 128/58 L 07/11/25 09:03 48 L 12 96 07/11/25 09:00 123/61 07/11/25 08:48 61 18 95 07/11/25 08:45 109/54 L 07/11/25 08:45 109/54 L 07/11/25 08:42 44 L 14 96 07/11/25 08:33 48 L 9 L 93 07/11/25 08:30 94/44 L 07/11/25 08:24 58 L 21 94 07/11/25 08:20 103/67 07/11/25 08:15 62 18 94 07/11/25 08:03 56 L 14 95 07/11/25 08:00 07/11/25 08:00 56 L 07/11/25 08:00 56 L 07/11/25 07:49 100/41 L 07/11/25 07:36 54 L 16 94 07/11/25 07:34 100/40 L 07/11/25 07:26 07/11/25 07:26 54 L 07/11/25 07:26 54 L 07/11/25 07:06 52 L 23 94 07/11/25 07:00 120/45 L 07/11/25 07:00 36.8 C 20 07/11/25 06:51 52 L 14 96 07/11/25 06:30 52 L 14 93 07/11/25 06:03 54 L 12 93 07/11/25 06:00 120/48 L 07/11/25 05:42 51 L 13 94 07/11/25 05:00 107/68 07/11/25 04:54 74 21 94 07/11/25 04:45 58 L 15 93 07/11/25 04:00 105/47 L 07/11/25 04:00 59 L 13 91 07/11/25 04:00 37 C 07/11/25 03:45 55 L 21 95 07/11/25 03:39 52 L 21 93 07/11/25 03:24 63 19 91 07/11/25 03:03 48 L 20 92 07/11/25 03:01 121/45 L 07/11/25 03:01 121/45 L 07/11/25 03:01 121/45 L 07/11/25 03:01 121/45 L 07/11/25 02:45 50 L 17 93 07/11/25 02:03 66 21 93 07/11/25 02:01 120/55 L 07/11/25 02:01 120/55 L 07/11/25 01:54 56 L 17 96 07/11/25 01:27 54 L 14 96 07/11/25 01:12 49 L 14 94 07/11/25 01:00 119/51 L 07/11/25 01:00 119/51 L 07/11/25 01:00 36.7 C 07/11/25 00:48 67 18 93 O2 Del Method 07/11/25 12:30 07/11/25 12:30 07/11/25 12:30 07/11/25 12:15 07/11/25 12:09 07/11/25 12:06 07/11/25 12:00 07/11/25 12:00 07/11/25 11:54 07/11/25 11:52 07/11/25 11:51 07/11/25 11:45 07/11/25 11:45 07/11/25 11:42 07/11/25 11:30 07/11/25 11:27 07/11/25 11:16 07/11/25 11:09 07/11/25 11:03 07/11/25 11:00 07/11/25 11:00 Room Air 07/11/25 10:54 07/11/25 10:45 07/11/25 10:39 07/11/25 10:30 07/11/25 10:30 07/11/25 10:15 07/11/25 10:09 07/11/25 10:01 07/11/25 09:54 07/11/25 09:48 07/11/25 09:46 07/11/25 09:33 07/11/25 09:30 07/11/25 09:15 07/11/25 09:03 07/11/25 09:00 07/11/25 08:48 07/11/25 08:45 07/11/25 08:45 07/11/25 08:42 07/11/25 08:33 07/11/25 08:30 07/11/25 08:24 07/11/25 08:20 07/11/25 08:15 07/11/25 08:03 07/11/25 08:00 Room Air 07/11/25 08:00 07/11/25 08:00 07/11/25 07:49 07/11/25 07:36 07/11/25 07:34 07/11/25 07:26 Room Air 07/11/25 07:26 07/11/25 07:26 07/11/25 07:06 07/11/25 07:00 07/11/25 07:00 07/11/25 06:51 07/11/25 06:30 07/11/25 06:03 07/11/25 06:00 07/11/25 05:42 07/11/25 05:00 07/11/25 04:54 07/11/25 04:45 07/11/25 04:00 07/11/25 04:00 07/11/25 04:00 07/11/25 03:45 07/11/25 03:39 07/11/25 03:24 07/11/25 03:03 07/11/25 03:01 07/11/25 03:01 07/11/25 03:01 07/11/25 03:01 07/11/25 02:45 07/11/25 02:03 07/11/25 02:01 07/11/25 02:01 07/11/25 01:54 07/11/25 01:27 07/11/25 01:12 07/11/25 01:00 07/11/25 01:00 07/11/25 01:00 07/11/25 00:48
[2025-07-11] MEDS: PHENYLEPHRINE/NSS 25 MG/250 ML BAG IV PRN (12:51)
[2025-07-12 00:24] VITALS: TEMP 98.4
[2025-07-12 09:02] VITALS: O2SAT 92
[2025-07-12 12:32] VITALS: RESP 21
--- NOTE | 2025-07-12 12:55 | Surgery Progress Note ---
Date of Service July 12, 2025 Assessment & Plan (1) Left carotid stenosis: Plan: POD #2 from left tcar. Doing well Will D\C on 5 days of midodrine or bp of 120 Admission and Anticipated Discharge Date Admission Date: July 10, 2025 Subjective Patient awake and alert. No complaints of focal deficits. BP above 100 off juana Physical Exam Physical Exam: General -NAD Cardio- HR 77. BP 110/60 Pulm- No increased work of breathing on RA, Sat 97% Heart- RRR Ext- Warm well perfused BUE and BLE. Motor strength 5/5 throughout. Sensation is intact throughout. Neuro- AAOx3, cooperative. No aphasia or facial droop. CN II-XII grossly intact. Extremities as above. Constitutional: WD/WN, vitals as above Respiratory: normal respiratory effort; no respiratory distress Cardiovascular: Rate/Rhythm: regular rate and regular rhythm Skin: + incision (dry and clean) Neurologic: CN's II-XI intact bilaterally and moves all extremities Psychiatric: A+Ox3, euthymic affect Results & Data Vital Signs (Past 12 Hours) Vital Signs Temp Pulse Resp BP Pulse Ox O2 Del Method 07/12/25 12:09 70 21 07/12/25 12:01 119/57 L 07/12/25 11:57 67 22 07/12/25 11:45 71 19 07/12/25 11:31 106/70 07/12/25 11:15 56 L 18 07/12/25 11:00 102/53 L 07/12/25 11:00 49 L 7 L 07/12/25 10:30 48 L 8 L 07/12/25 10:30 108/56 L 07/12/25 10:27 47 L 10 L 07/12/25 10:11 111/48 L 07/12/25 10:03 91/47 L 07/12/25 09:57 48 L 23 07/12/25 09:54 48 L 18 07/12/25 09:50 94/51 L 07/12/25 09:42 46 L 13 07/12/25 09:32 118/52 L 07/12/25 09:06 52 L 13 07/12/25 09:01 131/57 L 07/12/25 08:45 42 L 23 121/57 L 92 07/12/25 08:30 56 L 12 07/12/25 08:23 106/46 L 07/12/25 08:21 54 L 15 07/12/25 08:18 50 L 22 07/12/25 08:13 98/55 L 07/12/25 08:10 87/45 L 07/12/25 08:03 61 17 07/12/25 08:02 85/44 L 07/12/25 08:00 62 07/12/25 07:33 65 18 07/12/25 07:31 103/71 07/12/25 07:30 62 19 07/12/25 07:15 52 L 23 07/12/25 07:00 119/62 07/12/25 06:33 48 L 13 94 07/12/25 06:30 126/52 L 07/12/25 06:00 108/64 07/12/25 05:51 69 19 90 Room Air 07/12/25 05:33 47 L 12 95 Room Air 07/12/25 05:31 111/62 07/12/25 05:31 111/62 07/12/25 05:09 66 21 91 07/12/25 05:00 69 18 90 07/12/25 05:00 141/57 H 07/12/25 05:00 141/57 H 07/12/25 04:39 41 L 16 94 07/12/25 04:30 135/58 L 07/12/25 04:27 55 L 11 L 90 07/12/25 04:03 45 L 15 92 07/12/25 04:00 36.9 C 07/12/25 04:00 122/55 L 07/12/25 04:00 122/55 L 07/12/25 04:00 122/55 L 07/12/25 04:00 46 L 129/51 L 07/12/25 03:51 48 L 14 94 07/12/25 03:36 62 07/12/25 03:30 124/62 07/12/25 03:27 48 L 18 95 07/12/25 03:15 42 L 18 90 07/12/25 03:00 106/49 L 07/12/25 02:54 65 16 91 07/12/25 02:51 65 20 92 Room Air 07/12/25 02:31 106/53 L 07/12/25 02:27 55 L 16 92 Room Air 07/12/25 02:00 55 L 17 94 07/12/25 01:30 125/51 L 07/12/25 01:30 50 L 18 93 07/12/25 01:00 111/52 L 07/12/25 01:00 61 23 92
--- NOTE | 2025-07-12 12:57 | Discharge Summary ---
Date of Service July 12, 2025 Admission HPI Per Admitting Provider Mr Lyon is a 79 year old male who presents for a follow-up appointment regarding his history of carotid artery stenosis. Patient continues to deny any symptoms of cerebrovascular insufficiency including amaurosis, unilateral extremity weakness numbness or tingling, difficulty speaking or swallowing, facial droop, sudden onset confusion. He does state to having some weakness in his legs that has been present for years and is bilateral and he states it just feels like it is atrophy from lack of use. He also denies any numbness tingling or pins and needle sensation. He is able to do his activities of daily living with no difficulty. Patient states in the past he has had episodes of feeling off balance. These are intermittent. He is on [id number] but states he takes it every other day because it causes bruising on his arms. He is on Repatha and is compliant with this. His carotid ultrasound performed during his last appointment demonstrated 70 to 79% stenosis in the left ICA based on velocity criteria, with an ICA/CCA ratio of 3.8 and a end-diastolic velocity of 89.4 cm/s. This was similar to previous imaging, but his EDV was increased. We recommended a CTA of the neck and he comes today to discuss the results. There is high grade stenosis of the proximal left ICA. Of note, there is also high grade stenosis at the origin of the right vertebral artery. Admission Exam Per Admitting Provider General -NAD Cardio- HR 77. BP 110/60 Pulm- No increased work of breathing on RA, Sat 97% Heart- RRR Ext- Warm well perfused BUE and BLE. Motor strength 5/5 throughout. Sensation is intact throughout. Neuro- AAOx3, cooperative. No aphasia or facial droop. CN II-XII grossly intact. Extremities as above. Principal Diagnosis Left internal carotid artery stenosis Discharge Exam General -NAD Cardio- HR 77. BP 110/60 Pulm- No increased work of breathing on RA, Sat 97% Heart- RRR Ext- Warm well perfused BUE and BLE. Motor strength 5/5 throughout. Sensation is intact throughout. Neuro- AAOx3, cooperative. No aphasia or facial droop. CN II-XII grossly intact. Extremities as above. Constitutional WD/WN, vitals as above Respiratory normal respiratory effort; no respiratory distress Cardiovascular Rate/Rhythm: regular rate and regular rhythm Skin + incision (dry and clean) Neurologic CN's II-XI intact bilaterally and moves all extremities Psychiatric A+Ox3, euthymic affect Discharge Data Allergies Allergy/AdvReac Type Severity Reaction Status Date / Time grass pollen-perennial rye, Allergy Intermediate RUNNY Verified 07/10/25 09:19 standar NOSE, COUGH ragweed pollen Allergy Intermediate RUNNY Verified 07/10/25 09:19 NOSE/COUGH Consultations 07/10/25 15:41 Consult Press Shop Supervisor Routine Procedures Performed Operation Date: 07/10/25 10:50 Actual Procedures p Left Transcarotid Artery Revascularization(Left) - Prakash Blanco MD Ordered Studies 07/10/25 07:39 EV angio carotid cerv LT Routine US EV guide vascular access Routine Hospital Course (1) Left carotid stenosis: POD #2 from left tcar. Doing well Will D\C on 5 days of midodrine or bp of 120 Total Time Total Time Spent Total Time Spent (In Minutes): x Discharge Plan Discharge Items Patient Disposition: Home - Self-Care Reason For Visit: Left Internal Carotid Artery Stenosis Discharge Diagnosis: left internal carotid artery stenosis Activity: Per Instructions section Non-emergency contact: Surgeon Call non-emergency contact if: your temperature is above 101.5, your wound has increased redness, your wound has increased drainage and your wound pain has increased Follow-up/Referrals: Gretta Fowler PA-C [Primary Care Provider] - Diet: Heart Healthy Addtl Attending Provider Instructions: SPECIAL CARE INSTRUCTIONS: Diet: * You may return to previous diet. Medications: * Continue to take Aspirin, Plavix, statin as directed. *Hold Zestril until after midodrine is finished or blood pressure remains above 120 *Continue midodrine for the entire prescription unless blood pressure greater than 120 then can stop the midodrine and restart Zestril Incision Care: * You may shower, but do not rub incision. You may let the warm soapy water run over it. Be sure to dry the incision well after bathing. * Do not shave directly over the incision until it is healed. * DO NOT IMMERSE THE INCISION IN A TUB/POOL/etc. UNTIL HEALED. Restrictions: * Do not drive for at least one week or if you are still taking any narcotic pain medication. * Do not lift anything heavier than a gallon of milk for one week after going home. Possible Complications: * Numbness - It is normal to have some numbness around the incision. Numbness can extend beyond the incision to areas of the neck, ear and face. The numbness is due to bruising of nerves during the surgery and will gradually improve over a period of months. * Hoarseness/Difficulty Speaking and Swallowing - The bruising of nerves in the neck can also cause a hoarse voice, difficulty speaking or swallowing. This may improve over time, HOWEVER, if it continues for more than a few days please contact our office ([phone]). * Excessive Swelling - There will be some swelling immediately after surgery which usually resolves within one week. If you notice that the swelling is getting worse, notify your surgeon ([phone]). * Drainage/Bleeding - If there is any drainage or bleeding, it should be a very small amount (less than a teaspoon per day). If you have excessive bleeding or drainage from the incision, call your surgeon ([phone]) right away. ACTIVATION OF EMERGENCY MEDICAL SYSTEM: Call 911, immediately, if you experience any of the following: Warning Signs and Symptoms of Stroke: * Sudden numbness or weakness of the face, arm or leg, especially on one side of the body * Sudden confusion, trouble speaking or understanding * Sudden trouble seeing in one or both eyes * Sudden trouble walking, dizziness, loss of balance or coordination * Sudden severe headache with no cause Do not delay calling 911 if you experience any warning signs or symptoms of a stroke. Delay in seeking medical attention may affect what treatments can be given to you. Risk Factors for Stroke: You can reduce your chances of stroke by working with your medical provider to adopt a healthy lifestyle. Some specific ways to lower your chance of stroke are: * If you are a smoker, now is the time to stop smoking cigarettes * If you are diabetic, improve the control of your blood sugars * Avoid excessive amounts of alcohol * Control high blood pressure * Lose weight if you are overweight * Be sure to lead an active lifestyle * Eat a healthy diet low in salt, cholesterol and fat You should know about other risk factors for stroke that you are unable to control. These include: * Age 55 years or older * Male gender * Certain racial groups: , or / * Family History of Stroke, Mini stroke or Heart Attack * Sickle Cell Disease You will be receiving a call from the Vascular Surgery Nurse after you are discharged. FOLLOW UP VISIT: It is important for you to keep your follow up appointments with your medical provider. Keep any scheduled doctor appointments. Call [phone] to schedule a follow up appointment if one not already scheduled. Pending Studies at Discharge: No Stand-Alone Forms: My [facility], Smoking Cessation Medications and DC Order Prescriptions: New oxycodone-acetaminophen [Percocet] 5-325 mg Tablet 1 tab PO Q4H PRN (Reason: pain) Qty: 10 0RF midodrine 10 mg Tablet 10 mg PO TID@0800,1200,1700 Qty: 15 0RF Continued aspirin 81 mg tablet,delayed release (DR/EC) 81 mg PO QAM allopurinol 100 mg tablet 100 mg PO QAM multivitamin [Daily Multi-Vitamin] Tablet 1 tab PO QAM Repatha SureClick 140 mg/mL pen injector 140 mg subcut UD Patient Comments: every 2 weeks clopidogrel 75 mg tablet 75 mg PO QAM isosorbide mononitrate 30 mg tablet extended release 24 hr 30 mg PO QAM Glucosamine Chondroitin 550-30-1 mg Capsule 1 cap PO QAM coQ10 (ubiquinol) 200 mg Capsule 200 mg PO QAM Trelegy Ellipta 100-62.5-25 mcg blister with device 1 inh INHALATION QAM metoprolol succinate 25 mg Tablet Extended Release 24 Hr 25 mg PO QAM Held lisinopril 40 mg tablet 40 mg PO QAM Hold Instructions: Resume on 07/16/25. Hold until midodrine prescription is complete or blood pressure remains above 120 Discharge Orders: Discharge Order (Routine); Ordered 07/12/25 Ordered By: Prakash Blanco Admission Data Admit Date/Time: 07/10/25 10:26 Attending Provider: Prakash Blanco Admit Provider: Prakash Blanco Primary Care Provider: Gretta Fowler Other Providers: Gabriele Mahmood; Chris Plasencia; Clifton Ramirez; Daisha Levine; John Stephen; Lisa Yadav; Jeronimo Roberts; Karine Mari
[2025-07-12 13:02] VITALS: BP 113/51; PULSE 60
== END 2025-07-12 13:43 | disposition home or self-care (01) | DRG 35 ==
LOC: ASU 09:02 → 1E 10:26
PROC: EV.TCAR (2025-07-10 10:50)

== ENCOUNTER 2025-08-12 11:11 | Inpatient (IN) ==
--- NOTE | 2025-08-12 11:23 | Emergency Department Note ---
Impression & Plan Carotid stent occlusion, Acute confusion ED Provider Note NAME: SATHYA SAAVEDRA AGE: 80 SEX: M : 1945 ARRIVES VIA: Walk-In INFORMANT: Patient ED PROVIDER(S): Bridger Gillespie DO CHIEF COMPLAINT: Word finding HPI: Patient is a 80-year-old male with a past medical history of left carotid stenosis and surgery a month ago per who provides additional history. She notes that since he has been having trouble getting his words out and has been getting worse. Son notes that he has been more confused. Patient admits to a headache. No chest pain or shortness of breath. No belly pain. No nausea, vomiting or diarrhea. No dysuria, urgency or frequency. No other exacerbating or remitting factors. ADDITIONAL HISTORY OBTAINED: Per HPI Chronic Medical/Social Conditions Affecting Care: Per HPI PAST MEDICAL HISTORY:See Below PAST SURGICAL HISTORY:See Below FAMILY HISTORY:See Below SOCIAL HISTORY:See Below HOME MEDICATIONS:See Below ALLERGIES:See Below VITALS:See Below PHYSICAL EXAMINATION: GENERAL: Sitting up in bed, alert, well appearing, well nourished, no distress, non-toxic EYE EXAM: normal conjunctiva. PERRL and EOM's grossly intact. OROPHARYNX: no exudate, no erythema, lips, buccal mucosa, and tongue normal and mucous membranes are moist NECK: supple, no nuchal rigidity, no adenopathy, non-tender LUNGS: Clear to auscultation. Normal chest wall mechanics HEART: no murmurs, S1 normal and S2 normal ABDOMEN: abdomen soft, non-tender, normo-active bowel sounds, no masses, no rebound or guarding. UPPER EXTREMITIES: upper extremities are grossly normal. LOWER EXTREMITIES: No pitting edema. NEURO EXAM: Normal sensorium, cranial nerves II-XII intact, normal speech, no gross weakness of arms, no gross weakness of legs. No drift. Finger to nose intact. Gross sensation intact. MEDICAL DECISION MAKING: Patient is a 80-year-old male who presents ER with a past medical history of CAD and left carotid surgery [address] lBanco per review of external records who presents to the ER for trouble finding his words and some confusion per family who provide additional history. IV was established and blood work was obtained. Labs show no significant leukocytosis. INR unremarkable. BMP with mild hyponatremia at 134. LFTs bilirubin was unremarkable. Mag slightly low at 1.6. CT shows near complete occlusion at the distal aspect of the stent. This was discussed with Dr. Blanco. He recommended heparin bolus and drip. Case was discussed with Dr. Prabhu Ordaz for further evaluation management treatment. Symptoms have been present for greater than 24 hours again not consistent and requiring TNK. Consults/Care Managements Discussions: Per [facility] Triage Nursing notes reviewed. Limited review of prior medical records performed Vital Signs: reviewed and remarkable for HTN Differential diagnosis: Differential Diagnosis includes but is not limited to ischemic Stroke, hemorrhagic stroke, bells palsy, mass, neoplasm, migraine headache, seizure, subarachnoid hemorrhage, TIA, and transient global amnesia. ER treatment provided: See below Diagnostics interpreted by me include EKG and cardiac monitoring as listed below: -Cardiac Monitoring: An order was placed for continuous cardiac monitoring. The monitor shows a rate of 80 with sinus rhythm. -ECG: Sinus rhythm rate 80 Normal axis No PVCs QTc 449 -Laboratory studies:Interpreted by me as stated above in MDM and shown below. Imaging studies: Xrays: As interpreted by me: Portable AP upright 1 view of the chest shows no focal infiltrate CTs show: CT head as well as angios of the head and neck as described above Procedures:none Critical Care: I have personally spent 40 minutes of critical care time in the direct management of this patient. This includes bedside care, interpretation of diagnostic studies, and testing, discussion with consultants, patient, and family members, and other required patient management activities. This 40 minutes is in excess of all separately billable procedures. 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 Left carotid stenosis Presence of coronary artery bypass graft stent CAD (coronary artery disease) of artery bypass graft Degenerative arthritis of lumbar spine Lumbar radiculopathy History of colon polyps Proteinuria Poorly-controlled hypertension Impacted cerumen of both ears Sensorineural hearing loss (SNHL) of both ears SVT (supraventricular tachycardia) Prostate cancer RADIATION [place] AND SURGERY Prediabetes Tubular adenoma of colon (Acute) Cerebrovascular disease Paroxysmal SVT (supraventricular tachycardia) Carcinoma of prostate Wheezing Diabetes mellitus no meds Hyperlipemia HTN (hypertension), benign Medical History Atrial septal aneurysm Systolic anterior movement of mitral valve on 2022 echo; no notation on 2024 echo Aortic stenosis mild to moderate per 04/2025 echo report SVT (supraventricular tachycardia) patient wasn't sure about this CAD (coronary artery disease) s/p CABG x 3 1996, 1 stent in 2022 Hypertension Pre-diabetes no meds History of prostate cancer 1999--had surgery/radiation Carotid artery stenosis History of myocardial infarction (~2022) 12/2022---had heart cath with 1 stent placed--follows with Dr. Brooke Gout Osteoarthritis Hyperlipidemia HTN (hypertension) Surgical History H/O right inguinal hernia repair (03/28/20) Right Open Inguinal Hernia Repair with [facility](Right);excision of cord lipoma Dr. Howard 03/28/20 History of colonoscopy History of cholecystectomy Hx of vasectomy History of prostatectomy History of tooth extraction History of cataract surgery RT/LEFT History of cardiac cath x2--12/2022 @ [facility] with 1 stent placed; prior cath done @ [facility] prior to CABG Hx of CABG 1997 @ [facility]--follows with Dr. Brooke Family History Uncle Family hx of colon cancer Heart disease Father Heart disease Mother Heart disease Other No family history of adverse response to anesthesia Social History Smoking Status: Current every day smoker Tobacco Type: Cigars Age Started Using Tobacco: 55; Cigarettes Per Day: 7-8 (advised on policy); Second Hand Exposure: No; Do You Dip or Chew Tobacco: No; Hx Alcohol Use: Yes ("3-4 burbon a day") Alcohol type: hard liquor Alcohol Intake Frequency: 4 or More x per/Week Alcohol Intake Frequency Comment: 3-4/day Hx Substance Use: No Preferred Language: Zambian Communication Ability: Effective Cold Type Artist Required: No Beliefs That Will Affect Care: None Current Living Situation: Spouse current occupation: Retired Feels Safe at Home: Yes Assistive Devices: Walker Allergies Allergies Allergy/AdvReac Type Severity Reaction Status Date / Time grass pollen-perennial rye, Allergy Intermediate RUNNY Verified 07/10/25 09:19 standar NOSE, COUGH ragweed pollen Allergy Intermediate RUNNY Verified 07/10/25 09:19 NOSE/COUGH Home Meds Home Medications Medication Instructions Recorded Confirmed glucosamine sulf dipot 1 cap PO QAM 09/18/19 08/12/25 chlr,msm,chond 550 mg-C 30 mg-ghazal 1 mg capsule (Glucosamine Chondroitin) isosorbide mononitrate 30 mg 30 mg PO QAM 09/18/19 08/12/25 tablet,extended release 24 hr lisinopril 40 mg tablet 40 mg PO QAM 09/18/19 08/12/25 coQ10 (ubiquinol) 200 mg capsule 200 mg PO QAM 01/03/20 08/12/25 allopurinol 100 mg tablet 100 mg PO QAM 12/01/21 08/12/25 multivitamin (Daily Multi-Vitamin 1 tab PO QAM 06/01/22 08/12/25 tablet) fluticasone fur. 100 mcg-umeclid 1 inh inhalation QAM 01/05/23 08/12/25 62.5 mcg-vilant 25 mcg inhalat.powder (Trelegy Ellipta) aspirin 81 mg tablet,delayed 81 mg PO QAM 06/08/23 08/12/25 release evolocumab 140 mg/mL subcutaneous 140 mg subcut DIRECTED 02/15/25 08/12/25 pen injector (Hilary Goldberg) clopidogrel 75 mg tablet 75 mg PO QAM 06/27/25 08/12/25 metoprolol succinate 25 mg 25 mg PO QAM 07/04/25 08/12/25 tablet,extended release 24 hr Results & Data (ED) Vital Signs Vital Signs - 24 hr 08/12/25 11:16 08/12/25 11:16 08/12/25 11:16 Temperature 36.7 C Temperature Source Oral Pulse Rate 84 Pulse Rate from SpO2 Sensor Respiratory Rate 22 Respiratory Effort / Characteristics Non-Labored Spontaneous Non-Labored Spontaneous Respiratory Depth Normal Normal Respiratory Pattern Regular Regular Blood Pressure 149/86 H Blood Pressure Mean 107 Pulse Oximetry 98 96 Oxygen Delivery Method Room Air Room Air Sepsis Recent Fever Within 48 Hours No Sepsis New/Unexplained Change in Mental Status N/A Sepsis Action Taken by Nursing No Action Required 08/12/25 11:19 08/12/25 11:25 08/12/25 12:15 Temperature Temperature Source Pulse Rate 80 87 87 Pulse Rate from SpO2 Sensor 85 Respiratory Rate 16 24 Respiratory Effort / Characteristics Respiratory Depth Respiratory Pattern Blood Pressure 149/86 H Blood Pressure Mean 96 Pulse Oximetry 95 98 Oxygen Delivery Method Sepsis Recent Fever Within 48 Hours Sepsis New/Unexplained Change in Mental Status Sepsis Action Taken by Nursing Laboratory Data 08/12/25 11:24 08/12/25 11:24 Lab Results 08/12/25 08/12/25 Range/Units 11:24 11:50 WBC 9.23 (4.8-10.8) K/ul RBC 4.23 L (4.70-6.10) M/uL Hgb 15.3 (14.0-18.0) g/dl POC Hgb 15.3 (14.0-18.0) g/dl Hct 42.7 (42.0-52.0) % POC Hct 45 (42-52) % MCV 100.9 H (80.0-100.0) fL MCH 36.2 H (25.0-34.0) pg MCHC 35.8 (32.0-36.0) g/dL RDW Std Deviation 49.6 H (36.4-46.3) fL RDW Coeff of Shad 13.2 (11.5-14.5) % Plt Count 225 (130-400) K/uL MPV 10.6 (9.4-12.4) fL Immature Gran % (Auto) 0.3 % Neut % (Auto) 63.2 % Lymph % (Auto) 24.9 % Rooks % (Auto) 9.4 % Eos % (Auto) 2.1 % Baso % (Auto) 0.1 % Neut # (Auto) 5.83 (1.40-6.50) K/uL Lymph # (Auto) 2.30 (1.20-3.40) K/uL Rooks # (Auto) 0.87 H (0.11-0.59) K/uL Eos # (Auto) 0.19 (0.00-0.50) K/uL Baso # (Auto) 0.01 (0.00-0.20) K/uL Immature Gran # (Auto) 0.03 (0.01-0.20) K/uL PT 10.3 (9.0-12.0) Seconds INR 1.0 (0.9-1.1) APTT 24 (21-31) Seconds PTT Ratio 0.9 POC Sodium 135 (135-144) mmol/L Sodium 134 L (136-145) mmol/L POC Potassium 5.1 H (3.3-5.0) mmol/L Potassium 4.6 (3.5-5.1) mmol/L POC Chloride 99 L (101-112) mmol/L Chloride 98 (98-107) mmol/L Carbon Dioxide 27 (21-32) mmol/L POC Total CO2 27 (24-31) mmol/L Anion Gap 9 (3-11) POC Anion Gap 15.0 L (16-25) mmol/L POC BUN 26 H (7-18) mg/dl BUN 23 (6-23) mg/dl Creatinine 1.18 (0.6-1.4) mg/dl POC Creatinine 1.2 (0.6-1.3) mg/dl Est Cr Clr Drug Dosing Not Reportable eGFR 62.77 BUN/Creatinine Ratio 19.5 (10-20) Glucose 165 H (70-99(Fasting)) mg/dl POC Glucose (other) 155 H (70-99) mg/dl Calcium 9.4 (8.6-10.3) mg/dl POC Ioniz Calcium Kimberlee 1.18 (1.12-1.32) mmol/l Magnesium 1.6 L (1.7-2.4) mg/dl Total Bilirubin 0.5 (0.2-1.0) mg/dl AST 26 (13-39) U/L ALT 15 (7-52) U/L Alkaline Phosphatase 77 (34-104) U/L Troponin I High Sens 18.6 (0-20) pg/ml Total Protein 7.2 (6.0-8.3) gm/dl Albumin 4.0 (3.4-5.0) gm/dl Globulin 3.2 (2.5-4.0) gm/dl Albumin/Globulin Ratio 1.3 (0.9-2) Administered Medications Heparin Sodium/Dextrose (Heparin 54605 Unit/500 Ml D5w) 25,000 units in 500 mls @ 25 mls/hr IV .Q20H [facility]; Protocol Stop: 09/11/25 12:59 Last Admin: 08/12/25 14:23 Dose: 1,250 units/hr, 25 mls/hr Documented By: LORELEI Co-signed By: LISSETTE Magnesium Sulfate/Dextrose (Magnesium Sulfate / D5w) 1 gm in 100 mls @ 50 mls/hr IV Q2H LIN Stop: 08/12/25 16:59 Last Admin: 08/12/25 14:17 Dose: 50 mls/hr Documented By: LORELEI Discontinued Medications Heparin Sodium (Porcine) (Heparin Sod (Porcine) 1000 Unit/Ml) 1 units IV NOW ONE Stop: 08/12/25 12:59 Last Admin: 08/12/25 14:23 Dose: 6,000 units Documented By: LORELEI Co-signed By: LISSETTE Heparin Sodium/Dextrose (Heparin Iv Adult Wt-Based Standard W/ Initial Bolus Protocol) 1 each IV NOW STA; Protocol Stop: 08/12/25 12:44 Last Admin: 08/12/25 14:25 Dose: Not Given Documented By: LORELEI Ioversol (Optiray 320 125ml) 112 ml IV ONCE ONE Stop: 08/12/25 11:58 Last Admin: 08/12/25 11:57 Dose: 112 ml Documented By: GOLDEN Imaging Data Radiologist's Impression: Chest X-Ray 08/12/25 11:20 SINGLE VIEW CHEST CLINICAL HISTORY: Neurological deficit. Stroke like symptoms. FINDINGS: An AP, portable, upright chest radiograph is compared to study dated 07/10/2025 and correlated with chest CT dated 02/16/2024. The patient is status post midline sternotomy. The heart is enlarged noting atherosclerotic calcification of the thoracic aorta. The pulmonary vasculature is noncongested. Chronic interstitial thickening is similar to previous. Scarring/atelectasis is seen at the lung bases. No airspace consolidation or large pleural effusion is identified. No pneumothorax is seen. The skeletal structures are osteopenic. The bony thorax is grossly intact. IMPRESSION: Cardiomegaly with no acute cardiopulmonary abnormality identified. ACT 112: Negative or not required by law. Electronically signed by: Joseph Henry M.D. 08/12/2025 11:[address] 08/12/25 11:[address] OF THE BRAIN; CT ANGIOGRAM OF THE BRAIN; CT ANGIOGRAM OF THE NECK CLINICAL HISTORY: Neurological deficit. Stroke like symptoms. COMPARISON STUDY: CT angiogram of the neck dated 05/01/2025. TECHNIQUE: Unenhanced axial CT scan of the brain is performed. Subsequently, following the IV administration of 112 of Optiray 320, CT angiogram of the head and neck was performed from the aortic arch to the vertex. Images are reviewed in the axial, sagittal, and coronal planes. 3-D MIPS images are created and assessed. IV contrast was administered without complication. All measurements were calculated based on NASCET criteria. A dose lowering technique was utilized adhering to the principles of ALARA. CT DOSE: 1204.93 mGy.cm FINDINGS: Brain parenchyma: There is age related involutional change noting moderate subcortical and periventricular microangiopathic disease. There is no hemorrhage, mass effect, or evidence of acute territorial ischemia by CT criteria. There is no evidence of enhancing mass lesion on the angiogram phase images. The ventricles, sulci, and cisterns are prominent secondary to involutional change. There is a tiny chronic lacunar infarct in the left thalamus. Pagan-white matter differentiation is preserved. No extra-axial fluid collection is seen. Thoracic aorta: There is atherosclerotic calcification of the thoracic aorta. Visualized portions of the thoracic aorta are normal in caliber. The aortic arch demonstrates variant 3-vessel anatomy. There is a bovine arch, and the left vertebral artery arises directly from the thoracic aorta. Right carotid arterial system: The right common carotid artery is widely patent, as are the right internal and external carotid arteries. Calcified plaque is seen in the carotid bulb. Left carotid arterial system: The left common carotid artery is widely patent. There is advanced atherosclerotic plaque in the carotid bulb. A stent spans the left carotid bifurcation to the mid internal carotid artery. The proximal stent is widely patent. There is severe luminal narrowing with near complete occlusion/trace flow seen within the distal portions of the stent on axial image #[id number]. The distal left internal carotid artery is widely patent to the skull base. The external carotid arteries patent and arises from the stent. Vertebral arteries: Widely patent bilaterally noting mild right-sided dominance. Subclavian arteries: Widely patent bilaterally. Intracranial vasculature: There is atherosclerotic calcification of the cavernous carotid and vertebral arteries. The [place] is developmentally complete. The internal carotid arteries are patent at the skull base, as are the anterior and middle cerebral arteries bilaterally. The vertebrobasilar system and posterior cerebral arteries are widely patent. The right vertebral artery is dominant. There is no aneurysm, high-grade stenosis, or focal vessel cut off seen throughout the intracranial circulation. Jugular veins: Patent bilaterally. Dural sinuses: Patent. Lung apices: Partially visualized upper lobe lung parenchyma appears clear. Soft tissues: The visualized pharyngeal soft tissues are normal in appearance noting angiographic phase technique. The oropharyngeal airway appears widely patent. The salivary and thyroid glands are normal in appearance. No cervical lymphadenopathy is seen. Skeletal structures: The skeletal structures are osteopenic. The calvarium appears intact. The cervical spine is maintained noting multilevel spondylosis. Midline sternotomy wires are observed. Orbits: The bony orbits are intact. Orbital contents are normal as visualized noting bilateral ocular lens implants. Sinuses and mastoids: The paranasal sinuses are clear. There are trace mastoid effusions. IMPRESSION: 1. There is no hemorrhage, mass effect, or evidence of acute territorial ischemia by CT criteria. 2. Unremarkable CT angiogram of the brain. 3. A stent is present within the left carotid artery spanning the carotid bifurcation and extending to the level of the mid ICA. There is high-grade stenosis with near complete occlusion/trace flow seen within the distal portions of the stent. The left ICA is patent distally. Vascular surgical evaluation is advised. 4. Otherwise unremarkable CT angiogram of the neck. ACT 112: Negative or not required by law. Electronically signed by: Joseph Henry M.D. 08/12/2025 12:35 PM Head CTA 08/12/25 11:[address] OF THE BRAIN; CT ANGIOGRAM OF THE BRAIN; CT ANGIOGRAM OF THE NECK CLINICAL HISTORY: Neurological deficit. Stroke like symptoms. COMPARISON STUDY: CT angiogram of the neck dated 05/01/2025. TECHNIQUE: Unenhanced axial CT scan of the brain is performed. Subsequently, following the IV administration of 112 of Optiray 320, CT angiogram of the head and neck was performed from the aortic arch to the vertex. Images are reviewed in the axial, sagittal, and coronal planes. 3-D MIPS images are created and assessed. IV contrast was administered without complication. All measurements were calculated based on NASCET criteria. A dose lowering technique was utilized adhering to the principles of ALARA. CT DOSE: 1204.93 mGy.cm FINDINGS: Brain parenchyma: There is age related involutional change noting moderate subcortical and periventricular microangiopathic disease. There is no hemorrhage, mass effect, or evidence of acute territorial ischemia by CT criteria. There is no evidence of enhancing mass lesion on the angiogram phase images. The ventricles, sulci, and cisterns are prominent secondary to involutional change. There is a tiny chronic lacunar infarct in the left thalamus. Pagan-white matter differentiation is preserved. No extra-axial fluid collection is seen. Thoracic aorta: There is atherosclerotic calcification of the thoracic aorta. Visualized portions of the thoracic aorta are normal in caliber. The aortic arch demonstrates variant 3-vessel anatomy. There is a bovine arch, and the left vertebral artery arises directly from the thoracic aorta. Right carotid arterial system: The right common carotid artery is widely patent, as are the right internal and external carotid arteries. Calcified plaque is seen in the carotid bulb. Left carotid arterial system: The left common carotid artery is widely patent. There is advanced atherosclerotic plaque in the carotid bulb. A stent spans the left carotid bifurcation to the mid internal carotid artery. The proximal stent is widely patent. There is severe luminal narrowing with near complete occlusion/trace flow seen within the distal portions of the stent on axial image #[id number]. The distal left internal carotid artery is widely patent to the skull base. The external carotid arteries patent and arises from the stent. Vertebral arteries: Widely patent bilaterally noting mild right-sided dominance. Subclavian arteries: Widely patent bilaterally. Intracranial vasculature: There is atherosclerotic calcification of the cavernous carotid and vertebral arteries. The [place] is developmentally complete. The internal carotid arteries are patent at the skull base, as are the anterior and middle cerebral arteries bilaterally. The vertebrobasilar system and posterior cerebral arteries are widely patent. The right vertebral artery is dominant. There is no aneurysm, high-grade stenosis, or focal vessel cut off seen throughout the intracranial circulation. Jugular veins: Patent bilaterally. Dural sinuses: Patent. Lung apices: Partially visualized upper lobe lung parenchyma appears clear. Soft tissues: The visualized pharyngeal soft tissues are normal in appearance noting angiographic phase technique. The oropharyngeal airway appears widely patent. The salivary and thyroid glands are normal in appearance. No cervical lymphadenopathy is seen. Skeletal structures: The skeletal structures are osteopenic. The calvarium appears intact. The cervical spine is maintained noting multilevel spondylosis. Midline sternotomy wires are observed. Orbits: The bony orbits are intact. Orbital contents are normal as visualized noting bilateral ocular lens implants. Sinuses and mastoids: The paranasal sinuses are clear. There are trace mastoid effusions. IMPRESSION: 1. There is no hemorrhage, mass effect, or evidence of acute territorial ischemia by CT criteria. 2. Unremarkable CT angiogram of the brain. 3. A stent is present within the left carotid artery spanning the carotid bifurcation and extending to the level of the mid ICA. There is high-grade stenosis with near complete occlusion/trace flow seen within the distal portions of the stent. The left ICA is patent distally. Vascular surgical evaluation is advised. 4. Otherwise unremarkable CT angiogram of the neck. ACT 112: Negative or not required by law. Electronically signed by: Joseph Henry M.D. 08/12/2025 12:35 PM Neck CTA 08/12/25 11:[address] OF THE BRAIN; CT ANGIOGRAM OF THE BRAIN; CT ANGIOGRAM OF THE NECK CLINICAL HISTORY: Neurological deficit. Stroke like symptoms. COMPARISON STUDY: CT angiogram of the neck dated 05/01/2025. TECHNIQUE: Unenhanced axial CT scan of the brain is performed. Subsequently, following the IV administration of 112 of Optiray 320, CT angiogram of the head and neck was performed from the aortic arch to the vertex. Images are reviewed in the axial, sagittal, and coronal planes. 3-D MIPS images are created and assessed. IV contrast was administered without complication. All measurements were calculated based on NASCET criteria. A dose lowering technique was utilized adhering to the principles of ALARA. CT DOSE: 1204.93 mGy.cm FINDINGS: Brain parenchyma: There is age related involutional change noting moderate subcortical and periventricular microangiopathic disease. There is no hemorrhage, mass effect, or evidence of acute territorial ischemia by CT criteria. There is no evidence of enhancing mass lesion on the angiogram phase images. The ventricles, sulci, and cisterns are prominent secondary to involutional change. There is a tiny chronic lacunar infarct in the left thalamus. Pagan-white matter differentiation is preserved. No extra-axial fluid collection is seen. Thoracic aorta: There is atherosclerotic calcification of the thoracic aorta. Visualized portions of the thoracic aorta are normal in caliber. The aortic arch demonstrates variant 3-vessel anatomy. There is a bovine arch, and the left vertebral artery arises directly from the thoracic aorta. Right carotid arterial system: The right common carotid artery is widely patent, as are the right internal and external carotid arteries. Calcified plaque is seen in the carotid bulb. Left carotid arterial system: The left common carotid artery is widely patent. There is advanced atherosclerotic plaque in the carotid bulb. A stent spans the left carotid bifurcation to the mid internal carotid artery. The proximal stent is widely patent. There is severe luminal narrowing with near complete occlusion/trace flow seen within the distal portions of the stent on axial image #[id number]. The distal left internal carotid artery is widely patent to the skull base. The external carotid arteries patent and arises from the stent. Vertebral arteries: Widely patent bilaterally noting mild right-sided dominance. Subclavian arteries: Widely patent bilaterally. Intracranial vasculature: There is atherosclerotic calcification of the cavernous carotid and vertebral arteries. The [place] is developmentally complete. The internal carotid arteries are patent at the skull base, as are the anterior and middle cerebral arteries bilaterally. The vertebrobasilar system and posterior cerebral arteries are widely patent. The right vertebral artery is dominant. There is no aneurysm, high-grade stenosis, or focal vessel cut off seen throughout the intracranial circulation. Jugular veins: Patent bilaterally. Dural sinuses: Patent. Lung apices: Partially visualized upper lobe lung parenchyma appears clear. Soft tissues: The visualized pharyngeal soft tissues are normal in appearance noting angiographic phase technique. The oropharyngeal airway appears widely patent. The salivary and thyroid glands are normal in appearance. No cervical lymphadenopathy is seen. Skeletal structures: The skeletal structures are osteopenic. The calvarium appears intact. The cervical spine is maintained noting multilevel spondylosis. Midline sternotomy wires are observed. Orbits: The bony orbits are intact. Orbital contents are normal as visualized noting bilateral ocular lens implants. Sinuses and mastoids: The paranasal sinuses are clear. There are trace mastoid effusions. IMPRESSION: 1. There is no hemorrhage, mass effect, or evidence of acute territorial ischemia by CT criteria. 2. Unremarkable CT angiogram of the brain. 3. A stent is present within the left carotid artery spanning the carotid bifurcation and extending to the level of the mid ICA. There is high-grade stenosis with near complete occlusion/trace flow seen within the distal portions of the stent. The left ICA is patent distally. Vascular surgical evaluation is advised. 4. Otherwise unremarkable CT angiogram of the neck. ACT 112: Negative or not required by law. Electronically signed by: Joseph Henry M.D. 08/12/2025 12:35 PM Brain MRI 08/12/25 12:48 MRI OF THE BRAIN WITHOUT IV CONTRAST CLINICAL HISTORY: Expressive aphasia COMPARISON STUDY: CT of the brain dated 08/12/2025. TECHNIQUE: MRI of the brain was performed utilizing various T1 and T2-weighted sequences in the axial, sagittal, and coronal planes. IV contrast was not administered for this examination. FINDINGS: Brain parenchyma: There is age-related involutional change noting moderate confluent subcortical and periventricular microangiopathic disease. There is no hemorrhage or mass effect. There is no restricted diffusion to suggest acute ischemia. Pagan-white matter differentiation is preserved. There is a tiny chronic lacunar infarct in the left thalamus. No extra-axial fluid collection is seen. The cerebellar tonsils are normal in configuration. Ventricles, sulci, and cisterns: Prominent secondary to involutional change. Pituitary and sella: Unremarkable. Intracranial vasculature: Normal flow voids are maintained at the skull base. Orbits: The bony orbits are grossly intact. Orbital contents are normal in appearance noting bilateral ocular lens implants. Sinuses and mastoids: There are trace mastoid effusions. The paranasal sinuses are clear. Calvarium: Unremarkable. Cervical cord: Partially visualized cervical spinal cord is normal in morphology and signal intensity. IMPRESSION: No acute intracranial abnormality. ACT 112: Negative or not required by law. Electronically signed by: Joseph Henry M.D. 08/12/2025 2:17 PM Discharge Plan Visit Data Chief Complaint: Shortness of Breath/Dyspnea Stated Complaint: SOB, CONFUSED, HEADACHE, NOT MAKING SENTANCES ED Provider: Bridger Gillespie Discharge Problem: Carotid stent occlusion, Acute confusion Patient Disposition: Admitted As Inpatient Condition: Serious Discharge Instructions Interventions: ED Discharge Assessment Last Done: 08/12/25 14:47 Discharge Problem: Carotid stent occlusion Qualifiers: Encounter type: initial encounter Qualified Code(s): T82.898A - Other specified complication of vascular prosthetic devices, implants and grafts, initial encounter
--- NOTE | 2025-08-12 11:41 | XRay Report ---
SINGLE VIEW CHEST CLINICAL HISTORY: Neurological deficit. Stroke like symptoms. FINDINGS: An AP, portable, upright chest radiograph is compared to study dated 07/10/2025 and correlat ed with chest CT dated 02/16/2024. The patient is status post midline sternotomy. The heart is enlarge d noting atherosclerotic calcification of the thoracic aorta. The pulmonary vasculature is noncongest ed. Chronic interstitial thickening is similar to previous. Scarring/atelectasis is seen at the lung bases. No airspace consolidation or large pleural effusion is identified. No pneumothorax is seen. Th e skeletal structures are osteopenic. The bony thorax is grossly intact. IMPRESSION: Cardiomegaly with no acute cardiopulmonary abnormality identified. ACT 112: Negative or not required by law. Electronically signed by: Joseph Henry M.D. 08/12/2025 11:38 AM
[2025-08-12 11:53] LABS: Hematocrit (blood only) 42.7 % (42.0-52.0); Hemoglobin 15.3 g/dl (14.0-18.0); Immature Granulocytes # (auto) 0.03 K/uL (0.01-0.20); Immature Granulocytes % (auto) 0.3 %; Mean Corpuscular Hemoglobin 36.2 pg (25.0-34.0); Mean Corpuscular Volume 100.9 fL (80.0-100.0); Platelet Count 225 K/uL (130-400); RDW Standard Deviation 49.6 fL (36.4-46.3); Red Blood Count 4.23 M/uL (4.70-6.10); White Blood Count 9.23 K/ul (4.8-10.8)
[2025-08-12] MEDS: OPTIRAY 320 125ml IV ONE (11:57)
[2025-08-12 12:12] LABS: Alanine Aminotransferase 15 U/L (7-52); Albumin Globulin Ratio 1.3 (0.9-2); Albumin Level 4.0 gm/dl (3.4-5.0); Alkaline Phosphatase 77 U/L (34-104); Anion Gap 9 (3-11); Bilirubin,Total 0.5 mg/dl (0.2-1.0); Blood Urea Nitrogen 23 mg/dl (6-23); Calcium 9.4 mg/dl (8.6-10.3); Carbon Dioxide 27 mmol/L (21-32); Chloride 98 mmol/L (98-107); Globulin 3.2 gm/dl (2.5-4.0); Glucose 165 mg/dl (70-99(Fasting)); Magnesium 1.6 mg/dl (1.7-2.4); Potassium 4.6 mmol/L (3.5-5.1); Sodium 134 mmol/L (136-145); Total Protein 7.2 gm/dl (6.0-8.3)
[2025-08-12 12:29] LABS: INR 1.0 (0.9-1.1); Partial Thromboplastin Time 24 Seconds (21-31); Prothrombin Time 10.3 Seconds (9.0-12.0)
--- NOTE | 2025-08-12 12:37 | CT Scan Report ---
UNENHANCED CT OF THE BRAIN; CT ANGIOGRAM OF THE BRAIN; CT ANGIOGRAM OF THE NECK CLINICAL HISTORY: Neurological deficit. Stroke like symptoms. COMPARISON STUDY: CT angiogram of the neck dated 05/01/2025. TECHNIQUE: Unenhanced axial CT scan of the brain is performed. Subsequently, following the IV adminis tration of 112 of [employer] [address], CT angiogram of the head and neck was performed from the aortic arch t o the vertex. Images are reviewed in the axial, sagittal, and coronal planes. 3-D MIPS images are cre ated and assessed. IV contrast was administered without complication. All measurements were calculate d based on NASCET criteria. A dose lowering technique was utilized adhering to the principles of ALA RA. CT DOSE: 1204.93 mGy.cm FINDINGS: Brain parenchyma: There is age related involutional change noting moderate subcortical and periventri cular microangiopathic disease. There is no hemorrhage, mass effect, or evidence of acute territorial ischemia by CT criteria. There is no evidence of enhancing mass lesion on the angiogram phase images . The ventricles, sulci, and cisterns are prominent secondary to involutional change. There is a tiny chronic lacunar infarct in the left thalamus. Pagan-white matter differentiation is preserved. No ext ra-axial fluid collection is seen. Thoracic aorta: There is atherosclerotic calcification of the thoracic aorta. Visualized portions of the thoracic aorta are normal in caliber. The aortic arch demonstrates variant 3-vessel anatomy. Ther e is a bovine arch, and the left vertebral artery arises directly from the thoracic aorta. Right carotid arterial system: The right common carotid artery is widely patent, as are the right int ernal and external carotid arteries. Calcified plaque is seen in the carotid bulb. Left carotid arterial system: The left common carotid artery is widely patent. There is advanced athe rosclerotic plaque in the carotid bulb. A stent spans the left carotid bifurcation to the mid interna l carotid artery. The proximal stent is widely patent. There is severe luminal narrowing with near co mplete occlusion/trace flow seen within the distal portions of the stent on axial image #[id number]. The distal left internal carotid artery is widely patent to the skull base. The external carotid arterie s patent and arises from the stent. Vertebral arteries: Widely patent bilaterally noting mild right-sided dominance. Subclavian arteries: Widely patent bilaterally. Intracranial vasculature: There is atherosclerotic calcification of the cavernous carotid and vertebr al arteries. The [place] is developmentally complete. The internal carotid arteries are erwin nt at the skull base, as are the anterior and middle cerebral arteries bilaterally. The vertebrobasil ar system and posterior cerebral arteries are widely patent. The right vertebral artery is dominant. There is no aneurysm, high-grade stenosis, or focal vessel cut off seen throughout the intracranial c irculation. Jugular veins: Patent bilaterally. Dural sinuses: Patent. Lung apices: Partially visualized upper lobe lung parenchyma appears clear. Soft tissues: The visualized pharyngeal soft tissues are normal in appearance noting angiographic pha se technique. The oropharyngeal airway appears widely patent. The salivary and thyroid glands are nor mal in appearance. No cervical lymphadenopathy is seen. Skeletal structures: The skeletal structures are osteopenic. The calvarium appears intact. The cervic al spine is maintained noting multilevel spondylosis. Midline sternotomy wires are observed. Orbits: The bony orbits are intact. Orbital contents are normal as visualized noting bilateral ocular lens implants. Sinuses and mastoids: The paranasal sinuses are clear. There are trace mastoid effusions. IMPRESSION: 1. There is no hemorrhage, mass effect, or evidence of acute territorial ischemia by CT criteria. 2. Unremarkable CT angiogram of the brain. 3. A stent is present within the left carotid artery spanning the carotid bifurcation and extending t o the level of the mid ICA. There is high-grade stenosis with near complete occlusion/trace flow seen within the distal portions of the stent. The left ICA is patent distally. Vascular surgical evaluati on is advised. 4. Otherwise unremarkable CT angiogram of the neck. ACT 112: Negative or not required by law. Electronically signed by: Joseph Henry M.D. 08/12/2025 12:35 PM
--- NOTE | 2025-08-12 13:02 | History & Physical Report ---
Date of Service August 12, 2025 Assessment & Plan (1) Thrombosis of left carotid artery: (2) TIA (transient ischemic attack): (3) Tobacco use: (4) Presence of coronary artery bypass graft stent: (5) Hyperlipemia: (6) HTN (hypertension), benign: Plan 80 year old male with recent left transcarotid artery revascularization with stent placement performed by Dr Blanco on July 10 presents to the ER with intermittent expressive dysphasia. Asymptomatic on admission. #Thrombosis of left carotid artery stent Suspect smoking contributed towards formation of this and emphasized importance of stopping smoking - declined nicotine patch during hospitalization but interested in this on discharge IV heparin standard with bolus NPO after midnight Consult vascular surgery Continue aspirin, will hold clopidogrel pending vascular consult but if no planned intervention will restart this tomorrow and he will not have missed a dose #Transient ischemic attack Asymptomatic on admission, NIH 0 - per family better than when he originally came to the ER Brain MRI without acute stroke but having intermittent expressive dysphasia likely from clots coming from Stroke order set used - no need for neurology evaluation however as cause due to above If having intermittent short lived expressive dysphasia no need to re-scan but if any sustained symptoms for > [address] angio to see if he would benefit from intracranial thrombectomy #Hypertension He is not clear on whether he is taking lisinopril as it was placed on hold after recent surgery due to hypotension He is no longer on the midodrine as he reports his BP was high at home BP currently 118/83 To avoid hypotension will hold both the lisinopril and ISMN currently pending serial BP measurements overnight Place on IV fluids overnight to maintain good cerebral blood flow #Hyperlipidemia Continue Repatha as outpatient #Dysuria (2 days ago, now resolved) UA pending collection VTE Prophylaxis - IV heparin Disposition - admit to PCU Admission and Anticipated Discharge Date Admission Date: August 12, 2025 History of Present Illness Chief Complaint: Intermittent expressive dysphasia Primary Care Provider: Gretta Fowler Pola Lyon is a 80 year old male who presents to the ER with intermittent expressive dysphasia. He reports this has been going on intermittently since . Slurring his words and couldn't remember things but no difficulty understand what others are saying. He knew what he wanted to say but couldn't say it. No vision changes, no change in swallowing, no facial droop, no change in hearing (has hearing aids), no change in weakness or sensation in extremities. He has noted a headache since yesterday on the back and left front if his neck since Wednesday which he has been taking acetaminophen for. Aching, non pulsating, current severity 01/01. His , son and daughter tried to get him to come to the ER yesterday but he refused. His also noted an episode of shortness of breath on Wednesday morning lasting for a minutes while in the car. No current shortness of breath. No chest pain, palpitations, claudication, leg swelling, fever, chills or gastrointestinal symptoms. He noticed dysuria 2 days ago but none currently. No prior stroke but he has a significant history of coronary artery disease with STEMI 2022 requiring CIERA to distal SVG to RCA and prior CABG x3 1996. He continues to smoke 6 cigars a day and drinks 3 shots of bourbon a day. Allergies Allergy/AdvReac Type Severity Reaction Status Date / Time grass pollen-perennial rye, Allergy Intermediate RUNNY Verified 07/10/25 09:19 standar NOSE, COUGH ragweed pollen Allergy Intermediate RUNNY Verified 07/10/25 09:19 NOSE/COUGH Home Medications Medication Instructions Recorded Confirmed Type glucosamine sulf dipot 1 cap PO QAM 09/18/19 08/12/25 History chlr,msm,chond 550 mg-C 30 mg-ghazal 1 mg capsule (Glucosamine Chondroitin) isosorbide mononitrate 30 mg 30 mg PO QAM 09/18/19 08/12/25 History tablet,extended release 24 hr lisinopril 40 mg tablet 40 mg PO QAM 09/18/19 08/12/25 History coQ10 (ubiquinol) 200 mg capsule 200 mg PO QAM 01/03/20 08/12/25 History allopurinol 100 mg tablet 100 mg PO QAM 12/01/21 08/12/25 History multivitamin (Daily Multi-Vitamin 1 tab PO QAM 06/01/22 08/12/25 History tablet) fluticasone fur. 100 mcg-umeclid 1 inh inhalation QAM 01/05/23 08/12/25 History 62.5 mcg-vilant 25 mcg inhalat.powder (Trelegy Ellipta) aspirin 81 mg tablet,delayed 81 mg PO QAM 06/08/23 08/12/25 History release evolocumab 140 mg/mL subcutaneous 140 mg subcut DIRECTED 02/15/25 08/12/25 History pen injector (Hilary Goldberg) clopidogrel 75 mg tablet 75 mg PO QAM 06/27/25 08/12/25 History metoprolol succinate 25 mg 25 mg PO QAM 07/04/25 08/12/25 History tablet,extended release 24 hr Past Med/Surg History Problem List (Updated 08/12/25 @ 16:55 by Prabhu Ordaz MD) Tobacco use TIA (transient ischemic attack) Thrombosis of left carotid artery S/P vascular surgery Left carotid stenosis Presence of coronary artery bypass graft stent CAD (coronary artery disease) of artery bypass graft Degenerative arthritis of lumbar spine Lumbar radiculopathy History of colon polyps Proteinuria Poorly-controlled hypertension Impacted cerumen of both ears Sensorineural hearing loss (SNHL) of both ears SVT (supraventricular tachycardia) Prostate cancer RADIATION [place] AND SURGERY Prediabetes Tubular adenoma of colon (Acute) Cerebrovascular disease Paroxysmal SVT (supraventricular tachycardia) Carcinoma of prostate Wheezing Diabetes mellitus no meds Hyperlipemia HTN (hypertension), benign Medical History Atrial septal aneurysm Systolic anterior movement of mitral valve on 2022 echo; no notation on 2024 echo Aortic stenosis mild to moderate per 04/2025 echo report SVT (supraventricular tachycardia) patient wasn't sure about this CAD (coronary artery disease) s/p CABG x 3 1996, 1 stent in 2022 Hypertension Pre-diabetes no meds History of prostate cancer 1999--had surgery/radiation Carotid artery stenosis History of myocardial infarction (~2022) 12/2022---had heart cath with 1 stent placed--follows with Dr. Brooke Gout Osteoarthritis Hyperlipidemia HTN (hypertension) Surgical History H/O right inguinal hernia repair (03/28/20) Right Open Inguinal Hernia Repair with Bard Mesh(Right);excision of cord lipoma Dr. Howard 03/28/20 History of colonoscopy History of cholecystectomy Hx of vasectomy History of prostatectomy History of tooth extraction History of cataract surgery RT/LEFT History of cardiac cath x2--12/2022 @ [facility] with 1 stent placed; prior cath done @ [facility] prior to CABG Hx of CABG 1997 @ [facility]--follows with Dr. Brooke Family History Uncle Family hx of colon cancer Heart disease Father Heart disease Mother Heart disease Other No family history of adverse response to anesthesia Social History Smoking Status: Current every day smoker Tobacco Type: Cigars Age Started Using Tobacco: 55; Cigarettes Per Day: 7-8 (advised on policy); Second Hand Exposure: No; Do You Dip or Chew Tobacco: No; Hx Alcohol Use: Yes ("3-4 burbon a day") Alcohol type: hard liquor Alcohol Intake Frequency: 4 or More x per/Week Alcohol Intake Frequency Comment: 3-4/day Hx Substance Use: No Preferred Language: Macedonian Communication Ability: Effective Engineer First Assistant Required: No Beliefs That Will Affect Care: None Current Living Situation: Spouse current occupation: Retired Feels Safe at Home: Yes Assistive Devices: Walker Review of Systems Review of Systems: All systems reviewed & are unremarkable except as noted in HPI & below Physical Exam Constitutional: WD/WN, vitals as above Eyes: PERRL, conjunctivae normal, anicteric sclerae ENMT: external ear and nose normal, oropharynx normal Respiratory: normal respiratory effort, lungs clear to auscultation Cardiovascular: Rate/Rhythm: regular rate and + irregularly irregular (bigeminy/trigeminy on monitor) Heart Sounds: + murmur Extremities: normal capillary refill; no calf tenderness and no pedal edema Gastrointestinal (Abdomen): normal bowel sounds, soft, nontender, no hepatosplenomegaly Musculoskeletal: no cyanosis or clubbing, extremities motor strength 5/5 Skin: no rashes, warm and dry Neurologic: moves all extremities and awake; no focal motor deficits and not confused Speech / Cognition: normal speech, no expressive aphasia and no receptive aphasia Motor/Sensory: + tremor (very mild postural on left); no pronator drift Cranial Nerves: PERRL, EOM intact bilaterally, normal facial strength, tongue midline, able to rotate head bilaterally, able to elevate shoulders bilaterally, no nystagmus and symmetric palate elevation Coordin ation: normal [id number]-[id number] test and normal [id number]-[id number] test Psychiatric: A+Ox3, euthymic affect Results & Data Results & Data Vital Signs (Past 12 Hours) Vital Signs Temp Pulse Resp BP Pulse Ox O2 Del Method 08/12/25 11:25 87 08/12/25 11:16 96 Room Air 08/12/25 11:16 36.7 C 84 22 149/86 H 98 Room Air Laboratory Results Abnormal lab results 08/12/25 08/12/25 Range/Units 11:24 11:50 RBC 4.23 L (4.70-6.10) M/uL MCV 100.9 H (80.0-100.0) fL MCH 36.2 H (25.0-34.0) pg RDW Std Deviation 49.6 H (36.4-46.3) fL [place] # (Auto) 0.87 H (0.11-0.59) K/uL Sodium 134 L (136-145) mmol/L POC Potassium 5.1 H (3.3-5.0) mmol/L POC Chloride 99 L (101-112) mmol/L POC Anion Gap 15.0 L (16-25) mmol/L POC BUN 26 H (7-18) mg/dl Glucose 165 H (70-99(Fasting)) mg/dl POC Glucose (other) 155 H (70-99) mg/dl Magnesium 1.6 L (1.7-2.4) mg/dl Diagnostic Findings SINGLE VIEW CHEST CLINICAL HISTORY: Neurological deficit. Stroke like symptoms. FINDINGS: An AP, portable, upright chest radiograph is compared to study dated 07/10/2025 and correlated with chest CT dated 02/16/2024. The patient is status post midline sternotomy. The heart is enlarged noting atherosclerotic calcification of the thoracic aorta. The pulmonary vasculature is noncongested. Chronic interstitial thickening is similar to previous. Scarring/atelectasis is seen at the lung bases. No airspace consolidation or large pleural effusion is identified. No pneumothorax is seen. The skeletal structures are osteopenic. The bony thorax is grossly intact. IMPRESSION: Cardiomegaly with no acute cardiopulmonary abnormality identified. UNENHANCED CT OF THE BRAIN; CT ANGIOGRAM OF THE BRAIN; CT ANGIOGRAM OF THE NECK CLINICAL HISTORY: Neurological deficit. Stroke like symptoms. COMPARISON STUDY: CT angiogram of the neck dated 05/01/2025. TECHNIQUE: Unenhanced axial CT scan of the brain is performed. Subsequently, following the IV administration of 112 of Optiray 320, CT angiogram of the head and neck was performed from the aortic arch to the vertex. Images are reviewed in the axial, sagittal, and coronal planes. 3-D MIPS images are created and assessed. IV contrast was administered without complication. All measurements were calculated based on NASCET criteria. A dose lowering technique was utilized adhering to the principles of ALARA. CT DOSE: 1204.93 mGy.cm FINDINGS: Brain parenchyma: There is age related involutional change noting moderate subcortical and periventricular microangiopathic disease. There is no hemorrhage, mass effect, or evidence of acute territorial ischemia by CT criteria. There is no evidence of enhancing mass lesion on the angiogram phase images. The ventricles, sulci, and cisterns are prominent secondary to involutional change. There is a tiny chronic lacunar infarct in the left thalamus. Pagan-white matter differentiation is preserved. No extra-axial fluid collection is seen. Thoracic aorta: There is atherosclerotic calcification of the thoracic aorta. Visualized portions of the thoracic aorta are normal in caliber. The aortic arch demonstrates variant 3-vessel anatomy. There is a bovine arch, and the left vertebral artery arises directly from the thoracic aorta. Right carotid arterial system: The right common carotid artery is widely patent, as are the right internal and external carotid arteries. Calcified plaque is seen in the carotid bulb. Left carotid arterial system: The left common carotid artery is widely patent. There is advanced atherosclerotic plaque in the carotid bulb. A stent spans the left carotid bifurcation to the mid internal carotid artery. The proximal stent is widely patent. There is severe luminal narrowing with near complete occlusion/trace flow seen within the distal portions of the stent on axial image #[id number]. The distal left internal carotid artery is widely patent to the skull base. The external carotid arteries patent and arises from the stent. Vertebral arteries: Widely patent bilaterally noting mild right-sided dominance. Subclavian arteries: Widely patent bilaterally. Intracranial vasculature: There is atherosclerotic calcification of the cavernous carotid and vertebral arteries. The knik of Patel is developmentally complete. The internal carotid arteries are patent at the skull base, as are the anterior and middle cerebral arteries bilaterally. The vertebrobasilar system and posterior cerebral arteries are widely patent. The right vertebral artery is dominant. There is no aneurysm, high-grade stenosis, or focal vessel cut off seen throughout the intracranial circulation. Jugular veins: Patent bilaterally. Dural sinuses: Patent. Lung apices: Partially visualized upper lobe lung parenchyma appears clear. Soft tissues: The visualized pharyngeal soft tissues are normal in appearance noting angiographic phase technique. The oropharyngeal airway appears widely patent. The salivary and thyroid glands are normal in appearance. No cervical lymphadenopathy is seen. Skeletal structures: The skeletal structures are osteopenic. The calvarium appears intact. The cervical spine is maintained noting multilevel spondylosis. Midline sternotomy wires are observed. Orbits: The bony orbits are intact. Orbital contents are normal as visualized noting bilateral ocular lens implants. Sinuses and mastoids: The paranasal sinuses are clear. There are trace mastoid effusions. IMPRESSION: 1. There is no hemorrhage, mass effect, or evidence of acute territorial ischemia by CT criteria. 2. Unremarkable CT angiogram of the brain. 3. A stent is present within the left carotid artery spanning the carotid bifurcation and extending to the level of the mid ICA. There is high-grade stenosis with near complete occlusion/trace flow seen within the distal portions of the stent. The left ICA is patent distally. Vascular surgical evaluation is advised. 4. Otherwise unremarkable CT angiogram of the neck. Medications Administered ER Medications Given: Heparin standard IV with bolus ECG Rate (beats per minute): 80 Rhythm: normal sinus Findings: no acute ischemic change Comparison ECG Date: from (June 26, 2025) Change: the following changes noted (T wave amplitude decreased in lateral leads) Code Status & VTE Plan Code Status Full VTE Prophylaxis Plan VTE Prophylaxis will be ordered: Yes PG Care Time/CCT Total # of Minutes Spent Total Time Spent with Patient: Total time spent is greater than 50% in coordination of care (as documented) at patient's floor/unit and/or counseling patient: Coding Level of Care Code 24301 INT INP/OBS CARE 3/75MIN Diagnoses Thrombosis of left carotid artery I65.22 TIA (transient ischemic attack) G45.9 Tobacco use Z72.0 Presence of coronary artery bypass graft stent Z95.5; Z95.1 Hyperlipemia E78.5 HTN (hypertension), benign I10
[2025-08-12] MEDS: MAGNESIUM SULFATE / D5W 1 GM/100 ML BAG IV SCH (14:17)
--- NOTE | 2025-08-12 14:19 | Magnetic Resonance Report ---
MRI OF THE BRAIN WITHOUT IV CONTRAST CLINICAL HISTORY: Expressive aphasia COMPARISON STUDY: CT of the brain dated 08/12/2025. TECHNIQUE: MRI of the brain was performed utilizing various T1 and T2-weighted sequences in the axial , sagittal, and coronal planes. IV contrast was not administered for this examination. FINDINGS: Brain parenchyma: There is age-related involutional change noting moderate confluent subcortical and periventricular microangiopathic disease. There is no hemorrhage or mass effect. There is no restrict ed diffusion to suggest acute ischemia. Pagan-white matter differentiation is preserved. There is a ti ny chronic lacunar infarct in the left thalamus. No extra-axial fluid collection is seen. The cerebel lar tonsils are normal in configuration. Ventricles, sulci, and cisterns: Prominent secondary to involutional change. Pituitary and sella: Unremarkable. Intracranial vasculature: Normal flow voids are maintained at the skull base. Orbits: The bony orbits are grossly intact. Orbital contents are normal in appearance noting bilatera l ocular lens implants. Sinuses and mastoids: There are trace mastoid effusions. The paranasal sinuses are clear. Calvarium: Unremarkable. Cervical cord: Partially visualized cervical spinal cord is normal in morphology and signal intensity . IMPRESSION: No acute intracranial abnormality. ACT 112: Negative or not required by law. Electronically signed by: Joseph Henry M.D. 08/12/2025 2:17 PM
[2025-08-12] MEDS: HEPARIN SOD (PORCINE) 1000 UNIT/ML IV ONE (14:23)
[2025-08-12] MEDS: HEPARIN 25000 UNIT/500 ML D5W 25,000 UNITS/500 ML BAG IV SCH (14:23)
[2025-08-12] MEDS: Heparin IV Adult Wt-Based Standard w/ INITIAL Bolus Protocol IV STA (14:25)
[2025-08-12] MEDS ORDERED: PHARMACIST DISCHARGE MED REC CONSULT PRN (15:39)
[2025-08-12] MEDS ORDERED: ACETAMINOPHEN 325 MG TAB PO PRN (15:39)
[2025-08-12] MEDS: ACETAMINOPHEN 500 MG TAB PO STA (17:08)
[2025-08-12] MEDS ORDERED: INFLUENZA VACC TS2025-26(65y+)/PF (IIV3) 0.5mL Syr IM ONE (18:00)
--- NOTE | 2025-08-12 19:25 | Electrocardiogram Report ---
Test Reason : Blood Pressure : */* mmHG Vent. Rate : 80 BPM Atrial Rate : 80 BPM P-R Int : 166 ms QRS Dur : 88 ms QT Int : 390 ms P-R-T Axes : 35 53 42 degrees QTcB Int : 449 ms Normal sinus rhythm Normal ECG When compared with ECG of 26-Jun-2025 13:40, Aberrant conduction is no longer Present T wave amplitude has decreased in Lateral leads Confirmed by Loc Foster ([id number]) on 08/12/2025 7:24:40 PM Referred By: NO PCP Confirmed By: Loc Foster
[2025-08-12 19:31] LABS: Appearance Urine Clear (Clear); Bacteria Urine Automated None Seen (None Seen); Cast Urine Automated 0-2 /lpf (0-2); Epithelial Cell Urine Auto 0-2 /hpf (0-2); Glucose Urine UA Negative (Negative); RBC Urine Automated 0-2 /hpf (0-2); WBC Urine Automated 0-5 /hpf (0-5)
[2025-08-12] MEDS: SODIUM CHLORIDE 0.9% 1,000 ML IV SCH (20:18)
[2025-08-12 21:55] LABS: ANTI-Xa, UFH(UnfractionatedHep 0.68 IU/ml (0.3-0.7)
[2025-08-13 07:20] LABS: Hematocrit (blood only) 38.4 % (42.0-52.0); Hemoglobin 13.1 g/dl (14.0-18.0); Immature Granulocytes # (auto) 0.03 K/uL (0.01-0.20); Immature Granulocytes % (auto) 0.5 %; Mean Corpuscular Hemoglobin 34.2 pg (25.0-34.0); Mean Corpuscular Volume 100.3 fL (80.0-100.0); Platelet Count 175 K/uL (130-400); RDW Standard Deviation 49.1 fL (36.4-46.3); Red Blood Count 3.83 M/uL (4.70-6.10); White Blood Count 6.00 K/ul (4.8-10.8)
[2025-08-13 07:29] LABS: Anion Gap 6.0 (3-11); Blood Urea Nitrogen 20.0 mg/dl (6-23); Calcium 8.5 mg/dl (8.6-10.3); Carbon Dioxide 26.0 mmol/L (21-32); Chloride 105.0 mmol/L (98-107); Cholesterol 124.0 mg/dl (0-200); Creatinine Clr Calc Pharmacy 53.2 ml/min; Glucose 120.0 mg/dl (70-99(Fasting)); HDL Cholesterol 71.0 mg/dl; Magnesium 1.8 mg/dl (1.7-2.4); Potassium 4.5 mmol/L (3.5-5.1); Sodium 137.0 mmol/L (136-145); Triglycerides 94.0 mg/dl (0-150)
[2025-08-13 07:41] LABS: ANTI-Xa, UFH(UnfractionatedHep 0.51 IU/ml (0.3-0.7)
[2025-08-13 08:30] LABS: Hemoglobin A1C 5.8 % (4.5-5.6)
[2025-08-13] MEDS: ISOSORBIDE MONO EXTENDED REL 30 MG TABCR PO SCH (08:43)
[2025-08-13] MEDS: ASPIRIN 81 MG ECTAB PO SCH (08:44)
[2025-08-13] MEDS: METOPROLOL SUCC 25MG EXT REL TAB PO SCH (08:44)
[2025-08-13] MEDS: FLUTICASONE FUROATE 100MCG 14 PUFFS/INHALER INH SCH (08:45)
[2025-08-13] MEDS: UMECLIDINIUM/VILANTEROL 62.5/25MCG 7 PUFFS/INHALER INH SCH (08:45)
[2025-08-13] MEDS ORDERED: NON-FORMULARY MEDICATION (Fluticasone-Umeclidin-Vilanter [Trelegy Ellipta] 100-62.5-25 mcg INH SCH (09:00)
--- NOTE | 2025-08-13 09:24 | Consultation ---
Date of Consultation August 13, 2025 Assessment & Plan (1) Left carotid stenosis: Pt with recent (4wks) L TCAR. Now with new sx of dysphasia, evidenced by stuttering, garbled speech, and word finding difficulty. Sx have waxed and waned since beginning, but now resolved. CTA demonstrates filling defect in d istal end of stent, possibly thrombus. After discussion with Dr Blanco, recommends pt remain on heparin x 3 days, then reeval with CTA neck. Further recommendations pending results. Will order new echocardiogram as well. Will switch pt from plavix to brilinta 90mg BID. Continue heparin at least until new CTA completed in 3 days. History of Present Illness Reason for Consultation: s/p L tcar Attending Physician: Prabhu Ordaz MD History of Present Illness 80 yo m with hx of HTN, CAD s/p cabg, lumbar radiculopathy, SVT, DMII, hyperlipidemia, prostate ca, carotid stenosis, seen in consultation today for L carotid stent thrombus. Pt known to Dr blanco for L TCAR which was performed apprx 1 month ago. There were no complications. Was doing well postop until 3 days ago when he started having a L sided MARTINEZ and associated difficulty speaking. Per pt, his family was visiting and noted stuttering and slurred speech with word finding difficulty. Pt states his sx waxed and waned for days before he decided to come into [facility]. No sx since arrival. Pt has not missed any doses of his DAPT at home. Denies facial droop, unilateral weakness numbness or tingling, amaurosis. Denies MARTINEZ presently, fever, chest pain, palpitations, SOB, abd pain, N/V, rest pain, claudication, other complaints. CTA neck demonstrates filling defect in L ICA at distal end of stent. No occlusion. Allergies Allergy/AdvReac Type Severity Reaction Status Date / Time grass pollen-perennial rye, Allergy Intermediate RUNNY Verified 07/10/25 09:19 standar NOSE, COUGH ragweed pollen Allergy Intermediate RUNNY Verified 07/10/25 09:19 NOSE/COUGH Home Medications Medication Instructions Recorded Confirmed Type glucosamine sulf dipot 1 cap PO QAM 09/18/19 08/12/25 History chlr,msm,chond 550 mg-C 30 mg-ghazal 1 mg capsule (Glucosamine Chondroitin) isosorbide mononitrate 30 mg 30 mg PO QAM 09/18/19 08/12/25 History tablet,extended release 24 hr lisinopril 40 mg tablet 40 mg PO QAM 09/18/19 08/12/25 History coQ10 (ubiquinol) 200 mg capsule 200 mg PO QAM 01/03/20 08/12/25 History allopurinol 100 mg tablet 100 mg PO QAM 12/01/21 08/12/25 History multivitamin (Daily Multi-Vitamin 1 tab PO QAM 06/01/22 08/12/25 History tablet) fluticasone fur. 100 mcg-umeclid 1 inh inhalation QAM 01/05/23 08/12/25 History 62.5 mcg-vilant 25 mcg inhalat.powder (Trelegy Ellipta) aspirin 81 mg tablet,delayed 81 mg PO QAM 06/08/23 08/12/25 History release evolocumab 140 mg/mL subcutaneous 140 mg subcut DIRECTED 02/15/25 08/12/25 History pen injector (Hilary Goldberg) clopidogrel 75 mg tablet 75 mg PO QAM 06/27/25 08/12/25 History metoprolol succinate 25 mg 25 mg PO QAM 07/04/25 08/12/25 History tablet,extended release 24 hr Patient History Medical History Contusion, hip Atrial septal aneurysm Systolic anterior movement of mitral valve on 2022 echo; no notation on 2024 echo Aortic stenosis mild to moderate per 04/2025 echo report SVT (supraventricular tachycardia) patient wasn't sure about this CAD (coronary artery disease) s/p CABG x 3 1996, 1 stent in 2022 Hypertension Pre-diabetes no meds History of prostate cancer 1999--had surgery/radiation Carotid artery stenosis History of myocardial infarction (~2022) 12/2022---had heart cath with 1 stent placed--follows with Dr. Brooke Gout Osteoarthritis Hyperlipidemia HTN (hypertension) Surgical History H/O right inguinal hernia repair (03/28/20) Right Open Inguinal Hernia Repair with Bard Mesh(Right);excision of cord lipoma Dr. Howard 03/28/20 History of colonoscopy History of cholecystectomy Hx of vasectomy History of prostatectomy History of tooth extraction History of cataract surgery RT/LEFT History of cardiac cath x2--12/2022 @ [facility] with 1 stent placed; prior cath done @ [facility] prior to CABG Hx of CABG 1997 @ [facility]--follows with Dr. Brooke Family History Uncle Family hx of colon cancer Heart disease Father Heart disease Mother Heart disease Other No family history of adverse response to anesthesia Social History Smoking Status: Current every day smoker Tobacco Type: Cigars Age Started Using Tobacco: 55; Cigarettes Per Day: 7-8 (advised on policy); Second Hand Exposure: No; Do You Dip or Chew Tobacco: No; Hx Alcohol Use: Yes Alcohol type: hard liquor Alcohol Intake Frequency: 4 or More x per/Week Alcohol Intake Frequency Comment: 3-4/day Hx Substance Use: No Preferred Language: Kinyarwanda Communication Ability: Effective Graphic Coordinator Required: No Beliefs That Will Affect Care: None Current Living Situation: Spouse current occupation: Retired Other Information That Helps Us Care for You: No Feels Safe at Home: Yes Safety Concerns: Feels Safe At This Time Assistive Devices: None Review of Systems Review of Systems: All systems reviewed & are unremarkable except as noted in HPI & below Physical Exam Constitutional: WD/WN, vitals as above cooperative and comfortable; not in distress ENMT: Ears: + hearing impairment Neck: trachea midline L supraclavicular incision well healed. Respiratory: normal respiratory effort, lungs clear to auscultation Auscultation: + diminished lung sounds Cardiovascular: Rate/Rhythm: regular rate and regular rhythm Vessels: normal peripheral pulses, dorsalis pedis pulses present and radial pulses present Extremities: normal capillary refill Gastrointestinal (Abdomen): Inspection/Auscultation: abdomen normal to inspection and normal bowel sounds Percussion/Palpation: abdomen soft; abdomen nontender Musculoskeletal: no cyanosis or clubbing, extremities motor strength 5/5 Skin: no rashes, warm and dry Neurologic: moves all extremities and awake; no focal motor deficits and not confused Psychiatric: A+Ox3, euthymic affect Results & Data Vital Signs (Past 12 Hours) Vital Signs Temp Pulse Pulse Resp BP Pulse Ox O2 Del Method 08/13/25 07:45 36.5 C 63 22 126/79 94 Room Air 08/13/25 02:34 36.8 C 61 19 113/67 96 Room Air 08/12/25 22:56 36.8 C 60 18 95/54 L 96 Room Air 08/12/25 22:36 72 08/12/25 21:19 Room Air
--- NOTE | 2025-08-13 12:09 | Hospitalist Progress Note ---
Date of Service August 13, 2025 Assessment & Plan (1) Thrombosis of left carotid artery: (2) TIA (transient ischemic attack): (3) Tobacco use: (4) Presence of coronary artery bypass graft stent: (5) Hyperlipemia: (6) HTN (hypertension), benign: Plan 80 year old male with recent left transcarotid artery revascularization with stent placement performed by Dr Blanco on July 10 presents to the ER with intermittent expressive dysphasia. Asymptomatic on admission. #Thrombosis of left carotid artery stent Suspect smoking contributed towards formation of this and emphasized importance of stopping smoking - declined nicotine patch during hospitalization but interested in this on discharge IV heparin standard with bolus - vascular surgery recommending 3 days on this Appreciate vascular surgery consult - switched clopidogrel for Brilinta TTE ordered by vascular #Transient ischemic attack Asymptomatic on admission, NIH 0 - per family better than when he originally came to the ER Brain MRI without acute stroke but having intermittent expressive dysphasia suspect from reduced cerebral perfusion during period of hypotension such as last night, likely exacerbated by taking lisinopril at home as BP normal without this Stroke order set used - no need for neurology evaluation however as cause due to above - either from intermittent clots or poor perfusion (most likely the latter) If having intermittent short lived expressive dysphasia no need to re-scan but if any sustained symptoms for > [address] angio to see if he would benefit from intracranial thrombectomy, consider IV fluids to help with perfusion if having symptoms. #Hypertension BP currently 137/78 Stop IV fluids Stop lisinopril to avoid hypotension Continue ISMN and metoprolol #Hyperlipidemia Continue Repatha as outpatient #Dysuria - resolved UA protein 1+ but otherwise negative #Pre-diabetes HbA1C 5.8, diet and lifestyle changes recommended VTE Prophylaxis - IV heparin Disposition - continue on PCU due to high stroke risk Admission and Anticipated Discharge Date Admission Date: August 12, 2025 Subjective Reports episode of slurring of speech overnight lasting < 30 minutes when his called she noticed this reports he was taking lisinopril at home Asymptomatic this morning Physical Exam Constitutional: WD/WN, vitals as above Respiratory: normal respiratory effort, lungs clear to auscultation Cardiovascular: RRR, no murmur, no edema Neurologic: awake; no focal motor deficits and not confused Speech / Cognition: normal speech Results & Data Results & Data Vital Signs (Past 12 Hours) Vital Signs Temp Pulse Resp BP Pulse Ox O2 Del Method 10/20/25 11:19 36.3 C L 74 22 137/78 94 Room Air 08/13/25 07:45 36.5 C 63 22 126/79 94 Room Air 08/13/25 02:34 36.8 C 61 19 113/67 96 Room Air PG Care Time/CCT Total # of Minutes Spent Total Time Spent with Patient: Total time spent is greater than 50% in coordination of care (as documented) at patient's floor/unit and/or counseling patient: Coding Level of Care Code 79824 SUB INP/OBS CARE 2/35MIN Diagnoses Thrombosis of left carotid artery I65.22 TIA (transient ischemic attack) G45.9 Tobacco use Z72.0 Presence of coronary artery bypass graft stent Z95.5; Z95.1 Hyperlipemia E78.5 HTN (hypertension), benign I10
[2025-08-13] MEDS: TICAGRELOR 90 MG TAB PO SCH (12:34)
--- NOTE | 2025-08-13 14:55 | Pharmacy Report ---
- Date of Service August 13, 2025 - Pharmacy CVA/TIA Medication Review Medications to Prevent Stroke handout has been added to the patients discharge packet. Antiplatelet(s) * aspirin 81 mg PO daily + ticagrelor 90 mg PO BID Cholesterol * Discussed with Dr. Ordaz. High intensity statin deferred due to age >75, no evidence of atherosclerosis (cerebral, coronary, or PVD), and LDL of 34. Patient is on Repatha. DVT Prophylaxis * Heparin gtt Therapeutic Anticoagulation * No history of Afib/Aflutter noted Type 2 Diabetes * Patient does not have T2DM
--- NOTE | 2025-08-13 16:28 | XCELERA ---
[id number]
[2025-08-14 06:17] LABS: Hematocrit (blood only) 39.1 % (42.0-52.0); Hemoglobin 13.6 g/dl (14.0-18.0); Immature Granulocytes # (auto) 0.03 K/uL (0.01-0.20); Immature Granulocytes % (auto) 0.4 %; Mean Corpuscular Hemoglobin 34.8 pg (25.0-34.0); Mean Corpuscular Volume 100.0 fL (80.0-100.0); Platelet Count 187 K/uL (130-400); RDW Standard Deviation 48.3 fL (36.4-46.3); Red Blood Count 3.91 M/uL (4.70-6.10); White Blood Count 7.26 K/ul (4.8-10.8)
[2025-08-14 06:42] LABS: Anion Gap 7.0 (3-11); Blood Urea Nitrogen 21.0 mg/dl (6-23); Calcium 8.8 mg/dl (8.6-10.3); Carbon Dioxide 25.0 mmol/L (21-32); Chloride 105.0 mmol/L (98-107); Creatinine Clr Calc Pharmacy 58.0 ml/min; Glucose 126.0 mg/dl (70-99(Fasting)); Magnesium 1.7 mg/dl (1.7-2.4); Potassium 4.1 mmol/L (3.5-5.1); Sodium 137.0 mmol/L (136-145)
[2025-08-14 06:58] LABS: ANTI-Xa, UFH(UnfractionatedHep 0.56 IU/ml (0.3-0.7)
--- NOTE | 2025-08-14 16:48 | Hospitalist Progress Note ---
Date of Service August 14, 2025 Assessment & Plan (1) Thrombosis of left carotid artery: (2) TIA (transient ischemic attack): (3) Tobacco use: (4) Presence of coronary artery bypass graft stent: (5) Hyperlipemia: (6) HTN (hypertension), benign: Plan 80 year old male with recent left transcarotid artery revascularization with stent placement performed by Dr Blanco on July 10 presents to the ER with intermittent expressive dysphasia. Asymptomatic on admission. #Thrombosis of left carotid artery stent Suspect smoking contributed towards formation of this - declined nicotine patch during hospitalization but interested in this on discharge. Continued to emphasize importance of stopping smoking. IV heparin standard with bolus - at least 3 days recommended which would be tomorrow midday and will repeat CT neck angio at that time Appreciate vascular surgery management - switched clopidogrel for Brilinta TTE areas of hypokinesis are not new since at least 2022, no thrombosis seen #Transient ischemic attack Asymptomatic on admission, NIH 0 but had another slurring speech episode first night related to hypotension Brain MRI without acute stroke but having intermittent expressive dysphasia suspect from reduced cerebral perfusion during periods of hypotension, likely exacerbated by taking lisinopril at home as BP normal without this Stroke order set used - no need for neurology evaluation however as cause due to above - either from intermittent clots or poor perfusion (most likely the latter) If having intermittent short lived expressive dysphasia no need to re-scan but if any sustained symptoms for > [address] angio to see if he would benefit from intracranial thrombectomy, consider IV NSS to help with perfusion if having symptoms. #Hypertension Stop lisinopril to avoid hypotension - possibly can restart on this as outpatient once thrombosis has resolved Continue ISMN and metoprolol #Hyperlipidemia Continue Repatha as outpatient #Dysuria - resolved UA protein 1+ but otherwise negative #Pre-diabetes HbA1C 5.8, diet and lifestyle changes recommended VTE Prophylaxis - IV heparin Disposition - continue on PCU due to high stroke risk Admission and Anticipated Discharge Date Admission Date: August 12, 2025 Subjective No further episodes of slurring of speech. Feels at baseline. He reports he will update his over the phone. Physical Exam Constitutional: WD/WN, vitals as above Respiratory: normal respiratory effort, lungs clear to auscultation Cardiovascular: Rate/Rhythm: regular rate and + irregularly irregular (bigeminy/trigeminy on monitor) Heart Sounds: + murmur Extremities: normal capillary refill; no calf tenderness and no pedal edema Gastrointestinal (Abdomen): normal bowel sounds, soft, nontender, no hepatosplenomegaly Musculoskeletal: no cyanosis or clubbing, extremities motor strength 5/5 Skin: no rashes, warm and dry Neurologic: moves all extremities and awake; no focal motor deficits and not confused Speech / Cognition: normal speech, no expressive aphasia and no receptive aphasia Cranial Nerves: normal facial strength Psychiatric: A+Ox3, euthymic affect Results & Data Results & Data Vital Signs (Past 12 Hours) Vital Signs Temp Pulse Pulse Resp BP BP Pulse Ox 08/14/25 16:46 62 08/14/25 15:07 36.6 C 72 19 139/71 95 08/14/25 10:45 36.4 C L 71 19 125/81 95 08/14/25 07:40 36.8 C 77 19 124/74 91 08/14/25 07:02 74 O2 Del Method 08/14/25 16:46 08/14/25 15:07 Room Air 08/14/25 10:45 Room Air 08/14/25 07:40 Room Air 08/14/25 07:02 PG Care Time/CCT Total # of Minutes Spent Total Time Spent with Patient: Total time spent is greater than 50% in coordination of care (as documented) at patient's floor/unit and/or counseling patient: Coding Level of Care Code 99968 SUB INP/OBS CARE 2/35MIN Diagnoses Thrombosis of left carotid artery I65.22 TIA (transient ischemic attack) G45.9 Tobacco use Z72.0 Presence of coronary artery bypass graft stent Z95.5; Z95.1 Hyperlipemia E78.5 HTN (hypertension), benign I10
[2025-08-15 06:56] LABS: Hematocrit (blood only) 40.0 % (42.0-52.0); Hemoglobin 13.6 g/dl (14.0-18.0); Immature Granulocytes # (auto) 0.02 K/uL (0.01-0.20); Immature Granulocytes % (auto) 0.3 %; Mean Corpuscular Hemoglobin 33.7 pg (25.0-34.0); Mean Corpuscular Volume 99.3 fL (80.0-100.0); Platelet Count 193 K/uL (130-400); RDW Standard Deviation 48.6 fL (36.4-46.3); Red Blood Count 4.03 M/uL (4.70-6.10); White Blood Count 6.73 K/ul (4.8-10.8)
[2025-08-15 07:14] LABS: ANTI-Xa, UFH(UnfractionatedHep 0.52 IU/ml (0.3-0.7)
[2025-08-15 07:28] LABS: Anion Gap 7.0 (3-11); Blood Urea Nitrogen 18.0 mg/dl (6-23); Calcium 9.0 mg/dl (8.6-10.3); Carbon Dioxide 26.0 mmol/L (21-32); Chloride 105.0 mmol/L (98-107); Creatinine Clr Calc Pharmacy 61.0 ml/min; Glucose 123.0 mg/dl (70-99(Fasting)); Potassium 4.2 mmol/L (3.5-5.1); Sodium 138.0 mmol/L (136-145)
--- NOTE | 2025-08-15 12:40 | Hospitalist Progress Note ---
Date of Service August 15, 2025 Assessment & Plan (1) Thrombosis of left carotid artery: (2) TIA (transient ischemic attack): (3) Tobacco use: (4) Presence of coronary artery bypass graft stent: (5) Hyperlipemia: (6) HTN (hypertension), benign: Plan 80 year old male with recent left transcarotid artery revascularization with stent placement performed by Dr Blanco on July 10 presents to the ER with intermittent expressive dysphasia. Asymptomatic on admission. #Thrombosis of left carotid artery stent Suspect smoking contributed towards formation of this - declined nicotine patch during hospitalization but interested in this on discharge. Continued to emphasize importance of stopping smoking. IV heparin standard with bolus - at least 3 days recommended which would be completed today, August 15, and will repeat CT neck angio Appreciate vascular surgery management - switched clopidogrel to Brilinta TTE areas of hypokinesis are not new since at least 2022, no thrombosis seen #Transient ischemic attack Asymptomatic on admission, NIH 0 but had another slurring speech episode first night related to hypotension Brain MRI without acute stroke but having intermittent expressive dysphasia suspect from reduced cerebral perfusion during periods of hypotension, likely exacerbated by taking lisinopril at home as BP normal without this Stroke order set used - no need for neurology evaluation however as cause due to above - either from intermittent clots or poor perfusion (most likely the latter) #Hypertension Hold lisinopril to avoid hypotension - possibly can restart on this as outpatient once thrombosis has resolved Continue ISMN and metoprolol #Hyperlipidemia Continue Repatha as outpatient #Dysuria - resolved UA protein 1+ but otherwise negative #Pre-diabetes HbA1C 5.8, diet and lifestyle changes recommended VTE Prophylaxis - IV heparin Disposition - continue on PCU due to high stroke risk Admission and Anticipated Discharge Date Admission Date: August 12, 2025 Subjective Alert and oriented. Today is day 3 of intravenous heparin. Neck CTA will be repeated after 3 days of intravenous heparin drip per vascular surgery recommendations. Plavix has been switched to Brilinta. No new symptoms. He is hemodynamically stable Review of Systems 2 Review of Systems: Constitutionalno fever or chills ENTno blurred vision, no double vision, no epistaxis, no sore throat Respiratoryno cough, no wheezing, no shortness of breath Cardiacno palpitations, no chest pain, no syncope Jaylon nausea, vomiting, diarrhea, melena, hematochezia GUno urinary retention, no urinary incontinence, no dysuria, no hematuria Musculoskeletalno joint pain, no muscle tenderness Skinno bruising, no rashes, no pruritus Neurono isolated weakness, no paresthesia, no weakness Psychno depression, no anxiety Physical Exam 2 Physical Exam: General-alert and oriented x3, no fever, no chills HEENT-head atraumatic and normocephalic, pupils equal and reactive to light, extraocular muscles intact Neck-no lymphadenopathy or thyromegaly, trachea midline Chest-clear to auscultation. No rales, wheezing or rhonchi Cardiac-regular rate and rhythm, normal S1 and S2 Abdomen-normal bowel sounds, no hepatosplenomegaly Extremities-no cyanosis, clubbing, or edema Neuro-cranial nerves II through XII intact, motor and sensory function within normal limits, strength symmetrical, no focal deficits Psych-normal affect, normal mood Results & Data Results & Data Vital Signs (Past 12 Hours) Vital Signs Temp Pulse Pulse Resp BP Pulse Ox O2 Del Method 08/15/25 10:54 36.2 C L 70 18 124/71 94 Room Air 08/15/25 07:40 36.6 C 60 14 132/78 94 Room Air 08/15/25 07:30 63 08/15/25 03:16 36.4 C L 89 18 146/86 H 91 Room Air 08/15/25 03:08 81 Laboratory Results 08/15/25 06:30 08/15/25 06:30 PG Care Time/CCT Total # of Minutes Spent Total Time Spent with Patient: Total time spent is greater than 50% in coordination of care (as documented) at patient's floor/unit and/or counseling patient: Coding Level of Care Code 32153 SUB INP/OBS CARE 2/35MIN Diagnoses Thrombosis of left carotid artery I65.22 TIA (transient ischemic attack) G45.9 Tobacco use Z72.0 Presence of coronary artery bypass graft stent Z95.5; Z95.1 Hyperlipemia E78.5 HTN (hypertension), benign I10
[2025-08-15] MEDS: OPTIRAY 320 125ml IV ONE (13:03)
--- NOTE | 2025-08-15 14:33 | CT Scan Report ---
CT ANGIOGRAPHY OF THE NECK WITH CONTRAST CLINICAL HISTORY: repeat per vascular for carotid stent thrombosis COMPARISON STUDY: 08/12/2025 Technique: CT angiography of the carotid and vertebral arteries was obtained using Optiray and 3D rec onstruction on an independent workstation. NASCET criteria was utilized. Automated exposure control was utilized for the study. A dose lowering technique was utilized adhering to the principles of ALA RA. CT DOSE: 500.84 mGy.cm Findings: The lung apices are clear. There is no evidence for cervical lymphadenopathy. Thyroid nodules are visualized. No mucosal space m asses are visualized. No parotid or submandibular masses are visualized. Arthritic changes are present within the spine. There are no suspicious lytic or blastic skeletal les ions. There is no evidence of vertebral artery occlusion stenosis or dissection. There are mild atheromatous changes present the level the right carotid bulb. There is no evidence of hemodynamically significant right internal carotid artery stenosis. There is no evidence of right in ternal carotid artery dissection. Atheromatous calcifications are present the level the right carotid siphon. The left common carotid artery reveals no evidence of significant stenosis. There is a left carotid s tent, spanning the left carotid bifurcation. There is partial thrombosis of the stent distally with a residual lumen measuring 1.2 mm. The appearance is improved when compared the prior study. IMPRESSION: 1. No evidence of right carotid artery occlusion, dissection, or hemodynamically significant stenosis 2. No evidence of vertebral artery occlusion, dissection, or hemodynamically significant stenosis 3. Partial thrombosis of the distal aspect of the left internal carotid artery stent. The appearance is improved when compared the preceding study. There is currently a residual lumen of 1.2 mm at the l evel of maximal narrowing ACT 112: Negative or not required by law. Electronically signed by: Hao Craig M.D. 08/15/2025 2:31 PM
[2025-08-16 05:07] LABS: Hematocrit (blood only) 39.6 % (42.0-52.0); Hemoglobin 14.1 g/dl (14.0-18.0); Immature Granulocytes # (auto) 0.03 K/uL (0.01-0.20); Immature Granulocytes % (auto) 0.4 %; Mean Corpuscular Hemoglobin 35.6 pg (25.0-34.0); Mean Corpuscular Volume 100.0 fL (80.0-100.0); Platelet Count 205 K/uL (130-400); RDW Standard Deviation 47.9 fL (36.4-46.3); Red Blood Count 3.96 M/uL (4.70-6.10); White Blood Count 7.05 K/ul (4.8-10.8)
[2025-08-16 05:23] LABS: Anion Gap 8.0 (3-11); Blood Urea Nitrogen 21.0 mg/dl (6-23); Calcium 9.0 mg/dl (8.6-10.3); Carbon Dioxide 23.0 mmol/L (21-32); Chloride 104.0 mmol/L (98-107); Creatinine Clr Calc Pharmacy 52.7 ml/min; Glucose 129.0 mg/dl (70-99(Fasting)); Potassium 4.3 mmol/L (3.5-5.1); Sodium 135.0 mmol/L (136-145)
[2025-08-16 05:33] LABS: ANTI-Xa, UFH(UnfractionatedHep 0.52 IU/ml (0.3-0.7)
[2025-08-16] MEDS: OPTIRAY 320 125ml IV ONE (08:28)
--- NOTE | 2025-08-16 08:59 | CT Scan Report ---
CT ANGIOGRAM OF THE NECK CLINICAL HISTORY: Left carotid artery stent stenosis. COMPARISON STUDY: CT scan of the neck dated 08/15/2025. TECHNIQUE: Following the IV administration of 112 of Optiray 320, CT angiogram of the neck was perfor med from the aortic arch to the skull base. Images are reviewed in the axial, sagittal, and coronal p lanes. 3-D MIPS images are created and assessed. IV contrast was administered without complication. A ll measurements were calculated based on NASCET criteria. A dose lowering technique was utilized adh ering to the principles of ALARA. CT DOSE: 517.06 mGy.cm FINDINGS: Thoracic aorta: There is atherosclerotic calcification of the thoracic aorta. Visualized portions of the thoracic aorta are normal in caliber. The aortic arch demonstrates variant 3-vessel anatomy. Ther e is a bovine arch, and the left vertebral artery arises directly from the thoracic aorta. Right carotid arterial system: The right common carotid artery is widely patent, as are the right int ernal and external carotid arteries. Calcified plaque is seen in the carotid bulb. Left carotid arterial system: The left common carotid artery is widely patent. There is advanced athe rosclerotic plaque in the carotid bulb. A stent spans the left carotid bifurcation to the mid interna l carotid artery. The proximal stent is widely patent. There is severe luminal narrowing with near co mplete occlusion/trace flow seen within the distal portions of the stent on axial image #[id number]. The minimum patent luminal diameter measures approximately 1 mm. The distal left internal carotid artery is widely patent to the skull base. The external carotid arteries patent and arises from the stent. Vertebral arteries: There is moderate stenosis of the origin the right vertebral artery. The vertebra l arteries are otherwise widely patent bilaterally noting mild right-sided dominance. Subclavian arteries: Widely patent bilaterally. Intracranial vasculature: The visualized intracranial vessels at the skull base are patent. Jugular veins: Patent bilaterally. Brain parenchyma: The visualized brain parenchyma the skull base is within normal limits. Lung apices: Partially visualized upper lobe lung parenchyma appears clear. Soft tissues: The visualized pharyngeal soft tissues are normal in appearance noting angiographic pha se technique. The oropharyngeal airway appears widely patent. The salivary and thyroid glands are nor mal in appearance. No cervical lymphadenopathy is seen. Skeletal structures: The skeletal structures are osteopenic. The visualized calvarium at the skull ba se appears intact. The imaged cervical spine is maintained noting multilevel spondylosis. Midline miguel rnotomy wires are observed. Sinuses and mastoids: The visualized paranasal sinuses are clear. There is trace right mastoid effusi on. The left mastoid air cells are well pneumatized. IMPRESSION: 1. A stent is again seen within the left carotid artery spanning the carotid bifurcation and extendin g to the level of the mid ICA. There is high-grade stenosis with near complete occlusion/trace flow s een within the distal portions of the stent. The left ICA is patent distally. This is unchanged from 08/15/2025. 2. There is no evidence of significant right carotid stenosis. 3. Moderate stenosis is seen at the origin of the right vertebral artery. This is better appreciated on today's examination. 4. Additional findings as above. ACT 112: Negative or not required by law. Electronically signed by: Joseph Henry M.D. 08/16/2025 8:57 AM
--- NOTE | 2025-08-16 09:46 | Hospitalist Progress Note ---
Date of Service August 16, 2025 Assessment & Plan (1) Thrombosis of left carotid artery: (2) TIA (transient ischemic attack): (3) Tobacco use: (4) Presence of coronary artery bypass graft stent: (5) Hyperlipemia: (6) HTN (hypertension), benign: Plan 80 year old male with recent left transcarotid artery revascularization with stent placement performed by Dr Blanco on July 10 presents to the ER with intermittent expressive dysphasia. Asymptomatic on admission. Left carotid artery stent thrombosis With history of tobacco use Heparin continued Repeat CTA after 3 days of anticoagulation without significant change No recurrent strokelike symptoms through 08/16 Patient denies any recurrent strokelike symptoms although notes that he has not been up/walking around very much while anticoagulated TTE 08/13/2025: Hypokinesis to akinesis of the inferolateral wall/basal inferior wall/basal inferior septal wall segments and mild concentric LVH. No significant change compared to 12/2022. Aortic translocated gradient and velocity mildly increased since that time Reviewed vascular surgery 08/16. Anticipate progression to surgical intervention. N.p.o. at midnight. Continue DAPT and heparin GTT. Appreciate recommendations Statin intolerant #Transient ischemic attack - Asymptomatic on admission, NIH 0 but had another slurring speech episode first night related to hypotension - Brain MRI without acute stroke but having intermittent expressive dysphasia suspect from reduced cerebral perfusion during periods of hypotension, likely exacerbated by taking lisinopril at home as BP normal without this - Stroke set was followed on admit; subsequent neurology evaluation was deferred as MRI did not show stroke and symptoms likely from from intermittent clots or poor perfusion (most likely the latter) #Hypertension Lisinopril discontinued. Can restart on this as outpatient once thrombosis has resolved if needed - Continue ISMN and metoprolol #Hyperlipidemia - Continue Repatha as outpatient Statin intolerant #Dysuria - resolved - UA protein 1+ but otherwise negative #Pre-diabetes - HbA1C 5.8, diet and lifestyle changes recommended VTE Prophylaxis - IV heparin Disposition - continue on PCU Admission and Anticipated Discharge Date Admission Date: August 12, 2025 Milagro Escalona is seen at the bedside this morning. He was pending reassessment after CTA, this has had no interval change. Reports he has not had any symptoms of lightheadedness, dysarthria, aphasia, weakness, numbness, tingling, syncope, or presyncope but is not been ambulating very much and is mostly been in bed while on heparin. He reports he was given paperwork this morning but is not sure what this paperwork was for. On review was information regarding ability to appeal discharge when discharge was medically recommended.Patient reports he was not sure what the plan was moving forward, and was not sure if he was supposed to be discharged today or not. Should patient that no discharge order had yet been placed for him and given his CTA without improvement his case would be reviewed/discussed with vascular before evaluating him for this. Was able to review plan with vascular surgery, and subsequently did give an update to can that he was expected to remain for ongoing heparin and likely surgical intervention, and that vascular was following based on recent imaging . patient who expressed appreciation of update and information given. No additional questions at time bedside visit Physical Exam Physical Exam: General: A&Ox3. NAD. Cooperative. HEENT: Atraumatic, normocephalic. Vision and hearing grossly intact. Pupils equal and reactive Pulm: CTAB A&P. -wheezes, -rales, -rhonchi. Symmetrical chest rise. No increase in work of breathing. No respiratory distress. Cardiac: RRR, SM present. Radial pulses intact and symmetrical. Abdominal: Nontender, nondistended, soft. BS present. Extremities: Warm and dry. Moves all extremities equally bedside Results & Data Results & Data Vital Signs (Past 12 Hours) Vital Signs Temp Pulse Pulse Resp BP Pulse Ox O2 Del Method 08/16/25 07:08 36.3 C L 84 21 145/70 H 97 Room Air 08/16/25 04:03 61 08/16/25 03:02 36.6 C 66 18 125/73 96 Room Air 08/15/25 23:23 36.6 C 56 L 18 122/60 92 Room Air PG Care Time/CCT Total # of Minutes Spent Total Time Spent with Patient: Total time spent is greater than 50% in coordination of care (as documented) at patient's floor/unit and/or counseling patient: Coding Level of Care Code 33946 SUB INP/OBS CARE 3/50MIN Diagnoses Thrombosis of left carotid artery I65.22 TIA (transient ischemic attack) G45.9 Tobacco use Z72.0 Presence of coronary artery bypass graft stent Z95.5; Z95.1 Hyperlipemia E78.5 HTN (hypertension), benign I10
--- NOTE | 2025-08-16 14:13 | Surgery Progress Note ---
Date of Service August 16, 2025 Assessment & Plan (1) Left carotid stenosis: Plan: Very little change in thrombus in the left internal carotid artery stenosis. there has been no propagation of the clot. The clot is now more adherent to the wall. Will plan on redo left TCAR tomorrow. Will keep on heparin until surgery is complete. I have discussed the risks options and benefits of the procedure with the patient and family. The patient and family understand the risks options and benefits and agrees to the procedure. Admission and Anticipated Discharge Date Admission Date: August 12, 2025 Subjective Denies any further episodes since on heparin. Physical Exam Constitutional: WD/WN, vitals as above Respiratory: normal respiratory effort; no respiratory distress Cardiovascular: RRR, no murmur, no edema Neurologic: CN's II-XI intact bilaterally and moves all extremities Psychiatric: A+Ox3, euthymic affect Results & Data Vital Signs (Past 12 Hours) Vital Signs Temp Pulse Pulse Resp BP Pulse Ox O2 Del Method 08/16/25 12:25 36.6 C 65 18 122/69 97 Room Air 08/16/25 09:59 79 08/16/25 07:08 36.3 C L 84 21 145/70 H 97 Room Air 08/16/25 04:03 61 08/16/25 03:02 36.6 C 66 18 125/73 96 Room Air
[2025-08-17 06:38] LABS: Hematocrit (blood only) 40.9 % (42.0-52.0); Hemoglobin 13.8 g/dl (14.0-18.0); Immature Granulocytes # (auto) 0.04 K/uL (0.01-0.20); Immature Granulocytes % (auto) 0.6 %; Mean Corpuscular Hemoglobin 34.1 pg (25.0-34.0); Mean Corpuscular Volume 101.0 fL (80.0-100.0); Platelet Count 203 K/uL (130-400); RDW Standard Deviation 49.3 fL (36.4-46.3); Red Blood Count 4.05 M/uL (4.70-6.10); White Blood Count 6.51 K/ul (4.8-10.8)
[2025-08-17 06:56] LABS: Anion Gap 7.0 (3-11); Blood Urea Nitrogen 25.0 mg/dl (6-23); Calcium 9.1 mg/dl (8.6-10.3); Carbon Dioxide 28.0 mmol/L (21-32); Chloride 102.0 mmol/L (98-107); Creatinine Clr Calc Pharmacy 42.0 ml/min; Glucose 123.0 mg/dl (70-99(Fasting)); Potassium 4.8 mmol/L (3.5-5.1); Sodium 137.0 mmol/L (136-145)
[2025-08-17 07:06] LABS: ANTI-Xa, UFH(UnfractionatedHep 0.51 IU/ml (0.3-0.7)
[2025-08-17] MEDS ORDERED: PROPOFOL IV EMULSION 10 MG/ML 20 ML VIAL IV ONE (08:27)
[2025-08-17] MEDS ORDERED: ePHEDrine sulfate 50 MG/5 ML SYR ONE ×2 (08:27→08:30)
[2025-08-17] MEDS ORDERED: ONDANSETRON INJ 2 MG/ML 2 ML VIAL ONE (08:27)
[2025-08-17] MEDS ORDERED: DEXAMETHASONE SOD INJ 4 MG/ML VIAL ONE (08:27)
[2025-08-17] MEDS ORDERED: LIDOCAINE 2% 2 ML VIAL/AMP(20MG/ML) INFIL ONE ×2 (08:27→08:28)
[2025-08-17] MEDS ORDERED: ROCURONIUM BROMIDE 10 MG/ML 5 ML VIAL IV ONE ×2 (08:28→11:06)
[2025-08-17] MEDS: LACTATED RINGER'S 1,000 ML IV SCH ×2 (09:41→18:27)
[2025-08-17] MEDS ORDERED: HEPARIN SOD (PORCINE) 1000 UNIT/ML ONE (09:51)
--- NOTE | 2025-08-17 10:04 | History & Physical Bridge Note ---
Date of Service August 17, 2025 History & Physical Bridge Note Patient for a redo left tcar. I have discussed the risks options and benefits of the procedure with the patient. The patient understands the risks options and benefits and agrees to the procedure. I have examined the patient, reviewed the History & Physical and in the interval since the performance of the History & Physical I have noted the following changes of clinical significance: no changes noted
--- NOTE | 2025-08-17 10:13 | Anesthesiology Consultation ---
Date of Service August 17, 2025 Assessment & Plan Chart Review Chart Review: Acceptable Risk for Surgery and Patient NOT seen in Pre Admission Testing Consults Requested none ASA ASA4 Proposed Anesthesia Anesthesia Type: General Anesthesia Line Insertion: Arterial line Risk / Benefits Reviewed With: PT / POA / Parent / Guardian, Accepts Plan and Informed Consent Obtained History Surgery Operation Date: 08/17/25 10:00 Proposed Procedures p Re-Do Left Transcarotid Artery Revascularization - Prakash Blanco MD Height/Weight Height: 5 ft 8 in Weight: 73 kg Allergies Allergy/AdvReac Type Severity Reaction Status Date / Time grass pollen-perennial rye, Allergy Intermediate RUNNY Verified 08/17/25 09:40 standar NOSE, COUGH ragweed pollen Allergy Intermediate RUNNY Verified 08/17/25 09:40 NOSE/COUGH Medications Home Medications Medication Instructions Recorded Confirmed Last Taken glucosamine sulf dipot 1 cap PO QAM 09/18/19 08/12/25 08/12/25 chlr,msm,chond 550 mg-C 30 mg-ghazal 1 mg capsule (Glucosamine Chondroitin) isosorbide mononitrate 30 mg 30 mg PO QAM 09/18/19 08/12/25 08/12/25 tablet,extended release 24 hr lisinopril 40 mg tablet 40 mg PO QAM 09/18/19 08/12/25 08/12/25 coQ10 (ubiquinol) 200 mg capsule 200 mg PO QAM 01/03/20 08/12/25 08/12/25 allopurinol 100 mg tablet 100 mg PO QAM 12/01/21 08/12/25 08/12/25 multivitamin (Daily Multi-Vitamin 1 tab PO QAM 06/01/22 08/12/25 08/12/25 tablet) fluticasone fur. 100 mcg-umeclid 1 inh inhalation QAM 01/05/23 08/12/25 08/12/25 62.5 mcg-vilant 25 mcg inhalat.powder (Trelegy Ellipta) aspirin 81 mg tablet,delayed 81 mg PO QAM 06/08/23 08/12/25 08/12/25 release evolocumab 140 mg/mL subcutaneous 140 mg subcut DIRECTED 02/15/25 08/12/25 06/27/25 08:00 pen injector (Hilary Goldberg) clopidogrel 75 mg tablet 75 mg PO QAM 06/27/25 08/12/25 08/12/25 metoprolol succinate 25 mg 25 mg PO QAM 07/04/25 08/12/25 08/12/25 tablet,extended release 24 hr Active Medications Generic Name Dose Route Start Last Admin Trade Name Denise PRN Reason Stop Dose Admin Allopurinol 100 mg 08/13/25 09:00 08/17/25 09:01 Allopurinol 100 Mg Tab PO 09/12/25 08:59 100 mg QAM LIN Administration Aspirin 81 mg 08/13/25 09:00 08/17/25 09:01 Aspirin 81 Mg Ectab PO 09/12/25 08:59 81 mg QAM LIN Administration Fluticasone Furoate 1 puffs 08/13/25 09:00 08/17/25 09:01 Fluticasone Furoate 100mcg 14 Puffs/Inhaler INH 09/12/25 08:59 1 puffs DAILY LIN Administration Heparin Sodium/Dextrose 25,000 units in 500 mls @ 0 mls/hr 08/12/25 13:00 08/17/25 09:25 Heparin 29409 Unit/500 Ml D5w IV 09/11/25 12:59 0 units/hr .Q0M LIN 0 mls/hr Titration Protocol 0 UNITS/HR Lactated Ringer's 1,000 mls @ 15 mls/hr 08/17/25 09:45 08/17/25 09:41 Lr IV 08/20/25 09:44 15 mls/hr .Q24H LIN Administration Isosorbide Mononitrate 30 mg 08/13/25 09:00 08/17/25 09:01 Isosorbide [place] Extended Rel 30 Mg Tabcr PO 09/12/25 08:59 30 mg QAM LIN Administration Metoprolol Succinate 25 mg 08/13/25 09:00 08/17/25 09:02 Metoprolol Succ 25mg Ext Rel Tab PO 09/12/25 08:59 25 mg QAM LIN Administration Ticagrelor 90 mg 08/13/25 10:00 08/17/25 09:02 Ticagrelor 90 Mg Tab PO 09/12/25 09:59 90 mg BID LIN Administration Umeclidinium/Vilanterol 1 puffs 08/13/25 09:00 08/17/25 09:02 Umeclidinium/Vilanterol 62.5/25mcg 7 Puffs/Inhaler INH 09/12/25 08:59 1 puffs DAILY LIN Administration NPO Date Last Intake of Fluids: 08/16/25 Time Last Intake of Fluids: 21:00 Date Last Intake of Solids: 08/16/25 Time Last Intake of Solids: 20:00 Past Medical History Medical History Contusion, hip Atrial septal aneurysm Systolic anterior movement of mitral valve on 2022 echo; no notation on 2024 echo Aortic stenosis mild to moderate per 04/2025 echo report SVT (supraventricular tachycardia) patient wasn't sure about this CAD (coronary artery disease) s/p CABG x 3 1996, 1 stent in 2022 Hypertension Pre-diabetes no meds History of prostate cancer 1999--had surgery/radiation Carotid artery stenosis History of myocardial infarction (~2022) 12/2022---had heart cath with 1 stent placed--follows with Dr. Brooke Gout Osteoarthritis Hyperlipidemia HTN (hypertension) Exercise / Class Metabolic Activity III < 4 Walking/Shop/Light housework Past Family History Family History Uncle Family hx of colon cancer Heart disease Father Heart disease Mother Heart disease Other No family history of adverse response to anesthesia Past Surgical History Surgical History H/O right inguinal hernia repair (03/28/20) Right Open Inguinal Hernia Repair with [facility](Right);excision of cord lipoma Dr. Howard 03/28/20 History of colonoscopy History of cholecystectomy Hx of vasectomy History of prostatectomy History of tooth extraction History of cataract surgery RT/LEFT History of cardiac cath x2--12/2022 @ [facility] with 1 stent placed; prior cath done @ [facility] prior to CABG Hx of CABG 1997 @ [facility]--follows with Dr. Brooke Past Anesthesia History No Hx of Anesthesia Complications and No Family Hx of Anesthesia Complications History of PONV No Hx of PONV and No Hx of Motion Sickness Social History Smoking Status: Current every day smoker tobacco type: cigars Smoking cigarettes per day: 7-8 (advised on policy) Do You Dip or Chew Tobacco: No Hx Alcohol Use: Yes Alcohol type: hard liquor alcohol intake frequency: 3 or more drinks per day Hx Substance Use: No substance use type: does not use Physical Exam Vital Signs Last Vital Signs Temp 36.6 C 08/17/25 09:28 Pulse 58 L 08/17/25 09:28 Resp 20 08/17/25 09:28 BP 147/76 H 08/17/25 09:28 Pulse Ox 96 08/17/25 09:28 O2 Del Method Room Air 08/17/25 09:28 Constitutional no acute distress and not cachectic ENMT Mouth: + dentition abnormality and + poor dentition Thyromental Distance: > or= 3.5 Finger Breadths Mallampati Class: II Neck normal visual inspection and trachea midline; neck extension not limited and no facial hair Respiratory normal respiratory effort Auscultation: + diminished lung sounds Cardiovascular Rate/Rhythm: regular rate and regular rhythm Heart Sounds: + murmur (soft KAYLIN @ RUSB c/w ) Vessels: no carotid bruit Musculoskeletal Spine: normal cervical ROM and no pain with cervical ROM Extremities: extremities normal to inspection; full ROM of extremities Neurologic moves all extremities Motor/Sensory: no sensory deficit Psychiatric Orientation: alert and oriented x 3 Testing Laboratory Results 08/17/25 05:30 08/17/25 05:30 PT 10.3 Seconds (9.0-12.0) 08/12/25 11:24 INR 1.0 (0.9-1.1) 08/12/25 11:24 APTT 24 Seconds (21-31) 08/12/25 11:24 Hemoglobin A1c 5.8 % (4.5-5.6) H 08/13/25 06:30 Urine Color Yellow 08/12/25 19:12 Urine Appearance Clear (Clear) 08/12/25 19:12 Urine pH 6.0 (4.5-7.5) 08/12/25 19:12 Ur Specific [place] 1.023 (1.000-1.030) 08/12/25 19:12 Urine Protein 1+ (Negative) H 08/12/25 19:12 Urine Glucose (UA) Negative (Negative) 08/12/25 19:12 Urine Ketones Negative (Negative) 08/12/25 19:12 Urine Nitrite Negative (Negative) 08/12/25 19:12 Ur Leukocyte Esterase Negative (Negative) 08/12/25 19:12 Urine WBC (Auto) 0-5 /hpf (0-5) 08/12/25 19:12 Urine RBC (Auto) 0-2 /hpf (0-2) 08/12/25 19:12 U Hyaline Cast (Auto) 0-2 /lpf (0-2) 08/12/25 19:12 U Epithel Cells (Auto) 0-2 /hpf (0-2) 08/12/25 19:12 Urine Bacteria (Auto) None Seen (None Seen) 08/12/25 19:12 Blood Type O Positive 08/17/25 05:30 Antibody Screen NEGATIVE 08/17/25 05:30 Electrocardiogram Date: 08/12/25 Findings: + NSR @ (@ 80) Chest X-Ray Date: 08/12/25 Findings: + NAD, + cardiomegaly and + atherosclerosis of thoracic aorta Echocardiogram Date: 08/13/25 EF: 50% LV Function: dysfunctional (mildly dilated) RWMA: + hypokinetic Other Findings: + LVH (mild) Valvular Disease: + (mod.), + AI (mild) and + MR (mild)
[2025-08-17] MEDS ORDERED: FLUMAZENIL 0.1 MG/1 ML 10 ML VIAL IV PRN (10:19)
[2025-08-17] MEDS ORDERED: ATROPINE SULFATE 0.1 MG/ML 10ML SYR IV PRN (10:19)
[2025-08-17] MEDS ORDERED: ONDANSETRON INJ 2 MG/ML 2 ML VIAL IV PRN ×2 (10:19→13:20)
[2025-08-17] MEDS ORDERED: NALOXONE HCL 0.4 MG/1 ML VIAL/CARP IV PRN (10:19)
[2025-08-17] MEDS ORDERED: PROMETHAZINE HCL 6.25 MG in SODIUM CHLORIDE 0.9% 50 ML IV PRN (10:19)
[2025-08-17] MEDS ORDERED: ETOMIDATE 2 MG/ML 20 ML VIAL IV ONE (10:40)
[2025-08-17] MEDS ORDERED: GLYCOPYRROLATE 0.2 MG/ML VIAL ONE (10:47)
[2025-08-17] MEDS ORDERED: PHENYLEPHRINE 100MCG/ML 5ML SYR ONE (11:17)
[2025-08-17] MEDS: GELATIN SPONGE SZ 100 ONE (11:25)
[2025-08-17] MEDS: THROMBIN FOR SOLN 20000 UNIT KIT ONE (11:25)
[2025-08-17] MEDS ORDERED: SUGAMMADEX SODIUM 200 MG/2 ML VIAL IV ONE (11:37)
[2025-08-17] MEDS: ceFAZolin 330 MG/ML 1 GM VIAL ONE (11:51)
[2025-08-17] MEDS: SURGICEL ABSORB HEMOSTAT 2IN X 14IN TOP ONE (11:53)
[2025-08-17] MEDS: VISIPAQUE IV ONE (11:54)
[2025-08-17] MEDS: BUPIVACAINE/EPINEPHRINE 0.5% MPF 1:200,000 30 ML VIAL ONE (11:54)
--- NOTE | 2025-08-17 12:03 | Procedure Note ---
Angiogram Post Procedure Fluoroscopy Time (minutes): 1.3 Radiation (mGy): 39 Contrast: 15 Post Operative Report Pre & Post Diagnosis Operation Date: 08/17/25 10:00 Pre-Op Diagnosis: Carotid artery stent thrombosis Post-Op Diagnosis: Carotid artery stent thrombosis I identified the patient and participated in the time-out.: Yes Procedure Operation Date: 08/17/25 10:00 Actual Procedures p Re-Do Left Transcarotid Artery Revascularization, Ultrasound Localization Right Common Femoral Vein(Left) - Prakash Blanco MD Surgeon Prakash Blanco MD Wrap Checker Justin,PAC Estimated Blood Loss 15 Findings Consistent with Post-Op Diagnosis Specimens none Anesthesia Type General Complications none Disposition Accompanied Patient To Recovery: No Disposition: Recovery Room Indications This is a 80-year-old gentleman who had a left TCAR performed 4 weeks prior. He returns today right cerumen with episodes of difficulty with speech. He was admitted and underwent heparinization. His CT angiogram showed a clot present distal end of the stent. Repeat CT scan everything is Eporatio clot still present but somewhat smaller and did not propagate. Redo TCAR was recommended. I have discussed the risks options and benefits of the procedure with the patient. The patient understands the risks options and benefits and agrees to the procedure. Description of Procedure The patient was taken to the operating room and placed in supine position. After general anesthesia was accomplished the groins and left side of the neck and chest were prepped and draped in a sterile manner. Timeout was performed and the patient was identified. A transverse incision was made just above the clavicle between the heads of the sternocleidomastoid. This is carried down to where the common carotid artery was identified. It was isolated. It was slung with umbilical tape. Next the U stitch was placed in the common carotid artery with a 5-0 Prolene suture. Patient was given 8000 heparin at that time. Ultrasound was then used to localize the right common femoral vein. The vein was patent and compressed easily. Under ultrasound guidance the right common femoral vein was punctured and the venous sheath was inserted. This was aspirated and flushed with heparinized saline. ACT at that time was 274. Using micropuncture technique the common carotid artery was punctured. The micro sheath was inserted to 3 cm. Injection was then done showing the bifurcation. There was a small filling defect seen in distal end of the stent which was causing mild narrowing.. We then inserted the J-wire left and short of the lesion. The micro sheath was removed and the TCAR sheath was inserted. Once it was in place and held against the artery it was sutured to the chest wall and the incision edge. We then flushed the tubing appropriately. The venous return to was clamped onto the TCAR sheath. It was flushed through and then attached to the venous inflow sheath in the right groin. Sheath was checked for flow. The saline cleared nicely. The common carotid artery was then clamped. Flow reversal was instituted.The flow reversal was again checked for flow and found to have good flow after clamping. We inserted a 5.5 x 35 balloon backloaded on the wire. The wire was passed through the lesion into the petrous portion of the internal carotid. The 5.5 balloon was then advanced to the lesion. Lesion was then predilated with a 5.5 mm balloon. Balloon was removed. We then inserted the 9 x 40 stent. This was deployed just beyond the distal end of the old stent making sure the distal end of the new stent landed in a straight area of the artery without a curve. The catheter was removed. Widely patent stent was then noted on fluoroscopy. The carotid was allowed to go 2 minutes with flow reversal. Completion angiogram was done at that time which showed a widely patent carotid stent. At that point the common carotid artery was unclamped. The venous return tubing was clamped and removed from the TCAR sheath. The blood was allowed to flow back into the venous system. The TCAR sheath was then removed and the 5-0 Prolene suture securely tied. The patient was given 25 mg of protamine. Hemostasis was noted of the puncture site. An ACT was then drawn. The ACT was 129. The sheath was pulled from the groin and pressure was applied. Wound was irrigated with saline solution. Adequate hemostasis was obtained of the wound. Once this was noted the wound was closed in usual fashion using a 3-0 Vicryl suture for the subcutaneous layer and a 4-0 subcuticular Vicryl suture for the skin edges. Dermabond was used for dressing. The patient left the operation room in satisfactory condition and tolerated the procedure well. All needle and sponge counts were correct at the end of the procedure. Mami Schmitz Pac assisted due to lack of resident availability and was necessary for positioning, draping, retraction, wound closure deep layers, subcutaneous tissue, and skin closure and was necessary for assisting with the case. I attest to the content of the Intraoperative Record and any orders documented therein. Any exceptions are noted below.
--- NOTE | 2025-08-17 12:52 | Anesthesiology Progress Note ---
Date of Service August 17, 2025 Anesthesia Post Procedure Vital Signs Vital Signs: Temp Pulse Pulse Pulse Resp BP BP 08/17/25 12:45 36.4 C L 80 17 127/52 L 08/17/25 12:35 78 21 127/51 L 08/17/25 12:25 84 24 122/52 L 08/17/25 12:16 36.3 C L 90 17 08/17/25 09:28 36.6 C 58 L 20 140/73 08/17/25 08:15 36.5 C 61 17 08/17/25 02:54 36.7 C 65 16 08/16/25 23:01 36.7 C 59 L 16 08/16/25 19:02 36.5 C 64 18 08/16/25 17:46 59 L 08/16/25 16:32 36.6 C 67 18 08/16/25 15:14 36.9 C 58 L 18 08/16/25 15:00 BP Pulse Ox Pulse Ox O2 Del Method O2 Del Method O2 Flow Rate 08/17/25 12:45 111/59 L 94 Nasal Cannula 2 08/17/25 12:35 114/64 94 Room Air 08/17/25 12:25 109/62 95 Oxymask 2 08/17/25 12:16 136/69 98 Oxymask 7 08/17/25 09:28 147/76 H 96 Room Air 08/17/25 08:15 139/79 96 Room Air 08/17/25 02:54 133/72 92 Room Air 08/16/25 23:01 144/70 H 93 Room Air 08/16/25 19:02 129/71 95 Room Air 08/16/25 17:46 08/16/25 16:32 114/75 95 Room Air 08/16/25 15:14 129/70 96 Room Air 08/16/25 15:00 98 Room Air Transfer of Care Handoff Completed per policy Notes Mental Status: alert / awake / arousable Patient Amnestic to Procedure: Yes Nausea / Vomiting: adequately controlled Pain: adequately controlled Airway Patency, RR, SpO2: stable & adequate BP & HR: stable & adequate Hydration State: stable & adequate Anesthetic Complications: no major complications apparent
[2025-08-17] MEDS ORDERED: PHENYLEPHRINE/NSS 25 MG/250 ML BAG IV PRN (13:20)
[2025-08-17] MEDS ORDERED: STAT IV Infusion **Titration per Protocol STA (13:20)
--- NOTE | 2025-08-17 13:47 | Critical Care Consultation ---
Date of Consultation August 17, 2025 Assessment & Plan (1) TIA (transient ischemic attack): (2) Left carotid stenosis: (3) CAD (coronary artery disease) of artery bypass graft: (4) Prediabetes: (5) Diabetes mellitus: (6) Hyperlipemia: (7) HTN (hypertension), benign: Plan Pola Lyon is a 80-year-old male with past medical history of HTN, CAD s/p CABG, lumbar radiculopathy, SVT, DMII, HLD, prostate CA, carotid stenosis s/p left TCAR in June 2025; who presented to [facility] ED on 08/12/2025 with left side headache, confusion, and aphasia. Patient states that the symptoms had waxed and waned over the days prior to presenting to the ED. Patient had not missed any doses of his DAPT. CT/CTA head showed no acute intracranial abnormalities but noted a a high grade stenosis with minimal flow in the left carotid where the prior stent was placed concerning for thrombus. Patient placed on heparin gtt for 3 days with CTA showing persistent thrombus. Patient taken to OR for revision of left TCAR. Carotid stenosis s/p left TCAr now with thrombus s/p revision -Neurovascualr checks per protocol -Maintain SBP > 100. Phenylephrine gtt if unable to maintain SBP goal. -Cont ASA and Brilinta -Tylenol and oxycodone for analgesia HTN; HLD; CAD -Cont metoprolol -Cont isosorbide Mononitrate COPD -Cont Fluticasone -Cont Umeclidinium/Vilanterol -Maintain SpO2 > 90% Diabetes Mellitus II -Maintain BG 140-180 -Start hyperglycemic protocol if hyperglycemic Gout -Cont allopurinol Thank you for allowing us to participate in this patient's care. Please feel free to reach out with questions or concerns. 58 minutes is the time spent reviewing the chart, obtaining history, performing the physical exam and updating the patient/family and bedside nurse. History of Present Illness Reason for Consultation: Post evaluation and management of revision of left TCAR Attending Physician: Varun Gomez MD History of Present Illness Pola Lyon is a 80-year-old male with past medical history of HTN, CAD s/p CABG, lumbar radiculopathy, SVT, DMII, HLD, prostate CA, carotid stenosis s/p left TCAR in June 2025; who presented to [facility] ED on 08/12/2025 with left side headache, confusion, and aphasia. Patient states that the symptoms had waxed and waned over the days prior to presenting to the ED. Patient had not missed any doses of his DAPT. CT/CTA head showed no acute intracranial abnormalities but noted a a high grade stenosis with minimal flow in the left carotid where the prior stent was placed concerning for thrombus. Patient was changed from Plavix to Brilinta and started on heparin gtt. Neurological symptoms improved and patient was maintained on heparin gtt for 3 days with repeat CTA showing no further propagation of the thrombus but still persistent filling defect. Patient taken to the OR on 08/17/[address] Blanco for redo of left TCAR. Per report the procedure went well without issue. The patient was extubated and brought to the ICU post op for continued evaluation and management of revision of left TCAR Allergies Allergy/AdvReac Type Severity Reaction Status Date / Time grass pollen-perennial rye, Allergy Intermediate RUNNY Verified 08/17/25 09:40 standar NOSE, COUGH ragweed pollen Allergy Intermediate RUNNY Verified 08/17/25 09:40 NOSE/COUGH Home Medications Medication Instructions Recorded Confirmed Type glucosamine sulf dipot 1 cap PO QAM 09/18/19 08/12/25 History chlr,msm,chond 550 mg-C 30 mg-ghazal 1 mg capsule (Glucosamine Chondroitin) isosorbide mononitrate 30 mg 30 mg PO QAM 09/18/19 08/12/25 History tablet,extended release 24 hr lisinopril 40 mg tablet 40 mg PO QAM 09/18/19 08/12/25 History coQ10 (ubiquinol) 200 mg capsule 200 mg PO QAM 01/03/20 08/12/25 History allopurinol 100 mg tablet 100 mg PO QAM 12/01/21 08/12/25 History multivitamin (Daily Multi-Vitamin 1 tab PO QAM 06/01/22 08/12/25 History tablet) fluticasone fur. 100 mcg-umeclid 1 inh inhalation QAM 01/05/23 08/12/25 History 62.5 mcg-vilant 25 mcg inhalat.powder (Trelegy Ellipta) aspirin 81 mg tablet,delayed 81 mg PO QAM 06/08/23 08/12/25 History release evolocumab 140 mg/mL subcutaneous 140 mg subcut DIRECTED 02/15/25 08/12/25 History pen injector (Hilary Goldberg) clopidogrel 75 mg tablet 75 mg PO QAM 06/27/25 08/12/25 History metoprolol succinate 25 mg 25 mg PO QAM 07/04/25 08/12/25 History tablet,extended release 24 hr Patient History Medical History Contusion, hip Atrial septal aneurysm Systolic anterior movement of mitral valve on 2022 echo; no notation on 2024 echo Aortic stenosis mild to moderate per 04/2025 echo report SVT (supraventricular tachycardia) patient wasn't sure about this CAD (coronary artery disease) s/p CABG x 3 1996, 1 stent in 2022 Hypertension Pre-diabetes no meds History of prostate cancer 1999--had surgery/radiation Carotid artery stenosis History of myocardial infarction (~2022) 12/2022---had heart cath with 1 stent placed--follows with Dr. Brooke Gout Osteoarthritis Hyperlipidemia HTN (hypertension) Surgical History H/O right inguinal hernia repair (03/28/20) Right Open Inguinal Hernia Repair with [employer](Right);excision of cord lipoma Dr. Howard 03/28/20 History of colonoscopy History of cholecystectomy Hx of vasectomy History of prostatectomy History of tooth extraction History of cataract surgery RT/LEFT History of cardiac cath x2--12/2022 @ [facility] with 1 stent placed; prior cath done @ [facility] prior to CABG Hx of CABG 1997 @ [facility]--follows with Dr. Brooke Family History Uncle Family hx of colon cancer Heart disease Father Heart disease Mother Heart disease Other No family history of adverse response to anesthesia Social History Smoking Status: Current every day smoker Tobacco Type: Cigars Age Started Using Tobacco: 55; Cigarettes Per Day: 7-8 (advised on policy); Second Hand Exposure: No; Do You Dip or Chew Tobacco: No; Hx Alcohol Use: Yes Alcohol type: hard liquor Alcohol Intake Frequency: 4 or More x per/Week Alcohol Intake Frequency Comment: 3-4/day Hx Substance Use: No Preferred Language: Slovenian Communication Ability: Effective Bi Technical Lead Required: No Beliefs That Will Affect Care: None Current Living Situation: Spouse current occupation: Retired Feels Safe at Home: Yes Assistive Devices: Walker Review of Systems Review of Systems: All systems reviewed & are unremarkable except as noted in HPI & below Physical Exam Physical Exam: VITALS: Reviewed. WEIGHT/BMI reviewed. GEN: Pleasant, well-developed, NAD. PSYCH: Good Judgment. AOx3. Normal memory, mood, and affect. HEENT -Head: NC/AT; -Eyes: PERRL, EOMI. No discharge or redn ess; -Ears: External ears are normal. -Nose: Normal nares. NECK: Supple, with no masses. Left neck TCAR site without hematoma or bleeding. CV: RRR, no m/r/g. LUNGS: CTAB, no w/r/c. ABD: Soft, NT/ND, NBS, no masses or organomegaly. : N/A SKIN: Warm, well perfused. No skin rashes or abnormal lesions. MSK: No deformities, Normal gait. EXT: No clubbing, cyanosis, or edema. Right groin access site without hematoma or bleeding. NEURO: Face symmetric, speech clear, normal muscle strength and tone. No focal deficits. Results & Data Results & Data Vital Signs (Past 12 Hours) Vital Signs Temp Pulse Pulse Resp BP BP BP 08/17/25 12:55 73 18 128/55 L 110/62 08/17/25 12:45 36.4 C L 80 17 127/52 L 111/59 L 08/17/25 12:35 78 21 127/51 L 114/64 08/17/25 12:25 84 24 122/52 L 109/62 08/17/25 12:16 36.3 C L 90 17 136/69 08/17/25 09:28 36.6 C 58 L 20 140/73 147/76 H 08/17/25 08:15 36.5 C 61 17 139/79 08/17/25 02:54 36.7 C 65 16 133/72 Pulse Ox O2 Del Method O2 Flow Rate 08/17/25 12:55 95 Nasal Cannula 2 08/17/25 12:45 94 Nasal Cannula 2 08/17/25 12:35 94 Room Air 08/17/25 12:25 95 Oxymask 2 08/17/25 12:16 98 Oxymask 7 08/17/25 09:28 96 Room Air 08/17/25 08:15 96 Room Air 08/17/25 02:54 92 Room Air Critical Care Results & Data Vital Signs (Past 12 Hours) Vital Signs Temp Pulse Pulse Pulse Resp BP BP 08/17/25 13:36 77 15 08/17/25 13:15 72 21 08/17/25 13:09 08/17/25 13:09 122/70 08/17/25 13:09 122/70 08/17/25 12:55 73 18 08/17/25 12:45 36.4 C L 80 17 08/17/25 12:35 78 21 08/17/25 12:25 84 24 08/17/25 12:16 36.3 C L 90 17 08/17/25 09:28 36.6 C 58 L 20 140/73 08/17/25 08:15 36.5 C 61 17 08/17/25 02:54 36.7 C 65 16 BP BP Pulse Ox O2 Del Method O2 Flow Rate 08/17/25 13:36 91 Nasal Cannula 2 08/17/25 13:15 93 08/17/25 13:09 94 08/17/25 13:09 08/17/25 13:09 08/17/25 12:55 128/55 L 110/62 95 Nasal Cannula 2 08/17/25 12:45 127/52 L 111/59 L 94 Nasal Cannula 2 08/17/25 12:35 127/51 L 114/64 94 Room Air 08/17/25 12:25 122/52 L 109/62 95 Oxymask 2 08/17/25 12:16 136/69 98 Oxymask 7 08/17/25 09:28 147/76 H 96 Room Air 08/17/25 08:15 139/79 96 Room Air 08/17/25 02:54 133/72 92 Room Air Lab & Micro Results (Past 24 Hours) RBC 4.05 M/uL (4.70-6.10) L 08/17/25 WBC 6.51 K/ul (4.8-10.8) 08/17/25 Hgb 13.8 g/dl (14.0-18.0) L 08/17/25 Hct 40.9 % (42.0-52.0) L 08/17/25 MCV 101.0 fL (80.0-100.0) H 08/17/25 MCH 34.1 pg (25.0-34.0) H 08/17/25 MCHC 33.7 g/dL (32.0-36.0) 08/17/25 RDW Standard Deviation 49.3 fL (36.4-46.3) H 08/17/25 RDW Coefficient of Variation 13.2 % (11.5-14.5) 08/17/25 Plt Count 203 K/uL (130-400) 08/17/25 MPV 10.3 fL (9.4-12.4) 08/17/25 Neutrophils (%) (Auto) 57.7 % 08/17/25 Lymphocytes (%) (Auto) 23.3 % 08/17/25 Monocytes # (Auto) 0.83 K/uL (0.11-0.59) H 08/17/25 Eosinophils # (Auto) 0.35 K/uL (0.00-0.50) 08/17/25 Immature Granulocyte % (Auto) 0.6 % 08/17/25 Neutrophils # (Auto) 3.75 K/uL (1.40-6.50) 08/17/25 Lymphocytes # (Auto) 1.52 K/uL (1.20-3.40) 08/17/25 Monocytes # (Auto) 0.83 K/uL (0.11-0.59) H 08/17/25 Eosinophils # (Auto) 0.35 K/uL (0.00-0.50) 08/17/25 Basophils # (Auto) 0.02 K/uL (0.00-0.20) 08/17/25 Immature Granulocyte # (Auto) 0.04 K/uL (0.01-0.20) 5 Na 137 mmol/L (136-145) 08/17/25 K 4.8 mmol/L (3.5-5.1) 08/17/25 Cl 102 mmol/L (98-107) 08/17/25 CO2 28 mmol/L (21-32) 08/17/25 Anion Gap 7 (3-11) 08/17/25 BUN 25 mg/dl (6-23) H 08/17/25 Creatinine 1.38 mg/dl (0.6-1.4) 08/17/25 BUN/Creatinine Ratio 18.1 (10-20) 08/17/25 Glu 123 mg/dl (70-99(Fasting)) H 08/17/25 Ca 9.1 mg/dl (8.6-10.3) 08/17/25 Calcium Level 9.1 mg/dl (8.6-10.3) 08/17/25 05:30 I & O Totals 24 Hours 08/16/25 08/17/25 08/18/25 06:59 06:59 06:59 Intake Total 1231.667 / 6326.520 3116.667 / 7215.463 2016.583 / 1282.583 Output Total 1225 / 1225 1625 / 1625 Balance 6.667 / 6.667 -508.333 / -991.867 5385.583 / 1267.583 Cumulative 08/12/25 11:11 thru 08/17/25 13:37 Intake Total 8958.417 Output Total 6941 Balance 2017.417 RT Ventilator Mngmt (Last Documented) Ventilator Ordered Settings Respiratory Rate 15 08/17/25 13:36 Ventilator - PT Measurements Respiratory Rate 15 Coding Level of Care Code 66982 INT INP/OBS CARE 2/55MIN Diagnoses TIA (transient ischemic attack) G45.9 Left carotid stenosis I65.22 CAD (coronary artery disease) of artery bypass graft I25.810 Prediabetes R73.03 Diabetes mellitus E11.9 Hyperlipemia E78.5 HTN (hypertension), benign I10
--- NOTE | 2025-08-17 16:39 | Hospitalist Progress Note ---
Date of Service August 17, 2025 Assessment & Plan (1) Thrombosis of left carotid artery: (2) TIA (transient ischemic attack): (3) Tobacco use: (4) Presence of coronary artery bypass graft stent: (5) Hyperlipemia: (6) HTN (hypertension), benign: Plan 80 year old male with recent left transcarotid artery revascularization with stent placement performed by Dr Blanco on July 10 presents to the ER with intermittent expressive dysphasia. Asymptomatic on admission. Left carotid artery stent thrombosis With history of tobacco use - s/p heparin gtt. Repeat CTA without significant change after 3 days No recurrent strokelike symptoms - s/p repeat L TCAR 08/17/2025. Recovering in ICU, hemodynamically stable at bedside assessment. Goal SBP 100-180, phenylephrine vs nicardipine if outside goal range. BP 122/70 w/o either at time of bedside assessment TTE 08/13/2025: Hypokinesis to akinesis of the inferolateral wall/basal inferior wall/basal inferior septal wall segments and mild concentric LVH. No significant change compared to 12/2022. Aortic translocated gradient and velocity mildly increased since that time - Continue DAPT ASA/ticagrelor #Transient ischemic attack - Asymptomatic on admission, NIH 0 but had another slurring speech episode first night related to hypotension - Brain MRI without acute stroke but having intermittent expressive dysphasia suspect from reduced cerebral perfusion during periods of hypotension, likely exacerbated by taking lisinopril at home as BP normal without this - Stroke set was followed on admit; subsequent neurology evaluation was deferred as MRI did not show stroke and symptoms likely from from intermittent clots or poor perfusion (most likely the latter) - s/p repeat TCAR as noted #Hypertension Lisinopril discontinued. - MTP/ISMN continued. Hold if hypotensive, goal BP parameters as noted #Hyperlipidemia - Continue Repatha as outpatient Statin intolerant #Dysuria - resolved - UA protein 1+ but otherwise negative #Pre-diabetes - HbA1C 5.8, diet and lifestyle changes recommended Dispo: ICU post procedure. Admission and Anticipated Discharge Date Admission Date: August 12, 2025 Subjective Doing well postop No concerns Reports he feels well no headache. no weakness, no numbness tingling eating lunch, good appetite, no nausea/vomiting appreciative of care, eager for downgrade and dc home when able no other questions at time of visit Physical Exam Physical Exam: General: A&Ox3. NAD. Cooperative. HEENT: Atraumatic, normocephalic. Vision and hearing grossly intact. Pupils equal and reactive. L surgical site C/D/I with overlying dry dermibond. No hematoma appreciated. Pulm: CTAB A&P. -wheezes, -rales, -rhonchi. Symmetrical chest rise. No increase in work of breathing. No respiratory distress. Cardiac: RRR, SM present. Radial pulses intact and symmetrical. Abdominal: Nontender, nondistended, soft. BS present. Extremities: Warm and dry. Moves all extremities equally bedside Results & Data Results & Data Vital Signs (Past 12 Hours) Vital Signs Temp Pulse Pulse Pulse Resp BP BP 08/17/25 13:36 77 15 08/17/25 13:15 72 21 08/17/25 13:09 08/17/25 13:09 122/70 08/17/25 13:09 122/70 08/17/25 13:00 08/17/25 12:55 73 18 08/17/25 12:45 36.4 C L 80 17 08/17/25 12:35 78 21 08/17/25 12:25 84 24 08/17/25 12:16 36.3 C L 90 17 08/17/25 09:28 36.6 C 58 L 20 140/73 08/17/25 08:15 36.5 C 61 17 BP BP Pulse Ox O2 Del Method O2 Flow Rate 08/17/25 13:36 91 Nasal Cannula 2 08/17/25 13:15 93 08/17/25 13:09 94 08/17/25 13:09 08/17/25 13:09 08/17/25 13:00 Nasal Cannula 2 08/17/25 12:55 128/55 L 110/62 95 Nasal Cannula 2 08/17/25 12:45 127/52 L 111/59 L 94 Nasal Cannula 2 08/17/25 12:35 127/51 L 114/64 94 Room Air 08/17/25 12:25 122/52 L 109/62 95 Oxymask 2 08/17/25 12:16 136/69 98 Oxymask 7 08/17/25 09:28 147/76 H 96 Room Air 08/17/25 08:15 139/79 96 Room Air PG Care Time/CCT Total # of Minutes Spent Total Time Spent with Patient: Total time spent is greater than 50% in coordination of care (as documented) at patient's floor/unit and/or counseling patient: Coding Level of Care Code 28399 SUB INP/OBS CARE 3/50MIN Diagnoses Thrombosis of left carotid artery I65.22 TIA (transient ischemic attack) G45.9 Tobacco use Z72.0 Presence of coronary artery bypass graft stent Z95.5; Z95.1 Hyperlipemia E78.5 HTN (hypertension), benign I10
[2025-08-18 05:28] LABS: Hematocrit (blood only) 37.5 % (42.0-52.0); Hemoglobin 13.3 g/dl (14.0-18.0); Immature Granulocytes # (auto) 0.04 K/uL (0.01-0.20); Immature Granulocytes % (auto) 0.4 %; Mean Corpuscular Hemoglobin 35.1 pg (25.0-34.0); Mean Corpuscular Volume 98.9 fL (80.0-100.0); Platelet Count 225 K/uL (130-400); RDW Standard Deviation 46.0 fL (36.4-46.3); Red Blood Count 3.79 M/uL (4.70-6.10); White Blood Count 10.86 K/ul (4.8-10.8)
[2025-08-18 05:45] LABS: Anion Gap 11.0 (3-11); Blood Urea Nitrogen 28.0 mg/dl (6-23); Calcium 9.0 mg/dl (8.6-10.3); Carbon Dioxide 21.0 mmol/L (21-32); Chloride 102.0 mmol/L (98-107); Creatinine Clr Calc Pharmacy 42.0 ml/min; Glucose 134.0 mg/dl (70-99(Fasting)); Potassium 4.6 mmol/L (3.5-5.1); Sodium 134.0 mmol/L (136-145)
[2025-08-18 05:53] VITALS: RESP 20
[2025-08-18 08:48] VITALS: TEMP 98.1; O2SAT 95
--- NOTE | 2025-08-18 09:13 | Critical Care Progress Note ---
Date of Service August 18, 2025 Assessment & Plan (1) TIA (transient ischemic attack): (2) Left carotid stenosis: (3) CAD (coronary artery disease) of artery bypass graft: (4) Prediabetes: (5) Diabetes mellitus: (6) Hyperlipemia: (7) HTN (hypertension), benign: Plan Pola Lyon is a 80-year-old male with past medical history of HTN, CAD s/p CABG, lumbar radiculopathy, SVT, DMII, HLD, prostate CA, carotid stenosis s/p left TCAR in June 2025; who presented to [facility] ED on 08/12/2025 with left side headache, confusion, and aphasia. Patient states that the symptoms had waxed and waned over the days prior to presenting to the ED. Patient had not missed any doses of his DAPT. CT/CTA head showed no acute intracranial abnormalities but noted a a high grade stenosis with minimal flow in the left carotid where the prior stent was placed concerning for thrombus. Patient placed on heparin gtt for 3 days with CTA showing persistent thrombus. Patient taken to OR for revision of left TCAR. Carotid stenosis s/p left TCAr now with thrombus s/p revision -Neurovascualr checks per protocol -Maintain SBP > 100. Phenylephrine gtt if unable to maintain SBP goal. -Cont ASA and Brilinta -Tylenol and oxycodone for analgesia HTN; HLD; CAD -Cont metoprolol -Cont isosorbide Mononitrate COPD -Cont Fluticasone -Cont Umeclidinium/Vilanterol -Maintain SpO2 > 90% Diabetes Mellitus II -Maintain BG 140-180 -Start hyperglycemic protocol if hyperglycemic Gout -Cont allopurinol Critical care will sign off Admission and Anticipated Discharge Date Admission Date: August 12, 2025 Subjective Sitting up in chair has had breakfast, hopes to be discharged home today Physical Exam Physical Exam: General: Alert. nontoxic. Skin: Warm, dry, Head: Atraumatic Ears, nose, mouth and throat: airway patent Cardiovascular: Normal peripheral perfusion Respiratory: no respiratory distress Gastrointestinal: Non distended Musculoskeletal: No deformity Results & Data Results & Data Vital Signs (Past 12 Hours) Vital Signs Temp Pulse Resp BP BP Pulse Ox O2 Del Method 08/18/25 08:00 65 08/18/25 08:00 36.7 C 95/50 L 95 Room Air 08/18/25 07:03 65 20 Room Air 08/18/25 06:49 65 08/18/25 05:03 61 20 92 08/18/25 04:42 68 24 96 08/18/25 04:00 61 19 95 08/18/25 04:00 118/50 L 08/18/25 03:48 58 L 19 94 08/18/25 03:18 59 L 20 93 08/18/25 03:00 109/52 L 08/18/25 02:36 61 20 92 08/18/25 02:33 61 18 94 08/18/25 02:00 103/57 L 08/18/25 01:48 61 18 92 08/18/25 01:30 65 20 93 08/18/25 01:00 65 20 93 08/18/25 01:00 108/55 L 08/18/25 00:30 67 20 93 08/18/25 00:06 68 21 94 08/18/25 00:00 100/57 L 08/17/25 23:59 81 08/17/25 23:51 72 20 93 08/17/25 23:30 65 19 93 08/17/25 23:09 80 20 92 08/17/25 23:00 108/52 L 08/17/25 22:51 80 21 93 08/17/25 22:42 82 20 93 08/17/25 22:09 85 21 93 08/17/25 21:45 83 20 93 08/17/25 21:24 79 20 93 Critical Care Results & Data Vital Signs (Past 12 Hours) Vital Signs Temp Pulse Resp BP BP Pulse Ox O2 Del Method 08/18/25 08:00 65 08/18/25 08:00 36.7 C 95/50 L 95 Room Air 08/18/25 07:03 65 20 Room Air 08/18/25 06:49 65 08/18/25 05:03 61 20 92 08/18/25 04:42 68 24 96 08/18/25 04:00 61 19 95 08/18/25 04:00 118/50 L 08/18/25 03:48 58 L 19 94 08/18/25 03:18 59 L 20 93 08/18/25 03:00 109/52 L 08/18/25 02:36 61 20 92 08/18/25 02:33 61 18 94 08/18/25 02:00 103/57 L 08/18/25 01:48 61 18 92 08/18/25 01:30 65 20 93 08/18/25 01:00 65 20 93 08/18/25 01:00 108/55 L 08/18/25 00:30 67 20 93 08/18/25 00:06 68 21 94 08/18/25 00:00 100/57 L 08/17/25 23:59 81 08/17/25 23:51 72 20 93 08/17/25 23:30 65 19 93 08/17/25 23:09 80 20 92 08/17/25 23:00 108/52 L 08/17/25 22:51 80 21 93 08/17/25 22:42 82 20 93 08/17/25 22:09 85 21 93 08/17/25 21:45 83 20 93 08/17/25 21:24 79 20 93 Lab & Micro Results (Past 24 Hours) RBC 3.79 M/uL (4.70-6.10) L 08/18/25 WBC 10.86 K/ul (4.8-10.8) H 08/18/25 Hgb 13.3 g/dl (14.0-18.0) L 08/18/25 Hct 37.5 % (42.0-52.0) L 08/18/25 MCV 98.9 fL (80.0-100.0) 08/18/25 MCH 35.1 pg (25.0-34.0) H 08/18/25 MCHC 35.5 g/dL (32.0-36.0) 08/18/25 RDW Standard Deviation 46.0 fL (36.4-46.3) 08/18/25 RDW Coefficient of Variation 12.7 % (11.5-14.5) 08/18/25 Plt Count 225 K/uL (130-400) 08/18/25 MPV 10.8 fL (9.4-12.4) 08/18/25 Neutrophils (%) (Auto) 79.1 % 08/18/25 Lymphocytes (%) (Auto) 11.5 % 08/18/25 Monocytes # (Auto) 0.96 K/uL (0.11-0.59) H 08/18/25 Eosinophils # (Auto) 0.01 K/uL (0.00-0.50) 08/18/25 Immature Granulocyte % (Auto) 0.4 % 08/18/25 Neutrophils # (Auto) 8.59 K/uL (1.40-6.50) H 08/18/25 Lymphocytes # (Auto) 1.25 K/uL (1.20-3.40) 08/18/25 Monocytes # (Auto) 0.96 K/uL (0.11-0.59) H 08/18/25 Eosinophils # (Auto) 0.01 K/uL (0.00-0.50) 08/18/25 Basophils # (Auto) 0.01 K/uL (0.00-0.20) 08/18/25 Immature Granulocyte # (Auto) 0.04 K/uL (0.01-0.20) 5 Na 134 mmol/L (136-145) L 08/18/25 K 4.6 mmol/L (3.5-5.1) 08/18/25 Cl 102 mmol/L (98-107) 08/18/25 CO2 21 mmol/L (21-32) 08/18/25 Anion Gap 11 (3-11) 08/18/25 BUN 28 mg/dl (6-23) H 08/18/25 Creatinine 1.38 mg/dl (0.6-1.4) 08/18/25 BUN/Creatinine Ratio 20.3 (10-20) H 08/18/25 Glu 134 mg/dl (70-99(Fasting)) H 08/18/25 Ca 9.0 mg/dl (8.6-10.3) 08/18/25 Calcium Level 9.0 mg/dl (8.6-10.3) 08/18/25 04:47 I & O Totals 24 Hours 08/17/25 08/18/25 08/19/25 06:59 06:59 06:59 Intake Total 1116.667 / 6318.053 2226.583 / 1882.583 720 / 720 Output Total 1625 / 1625 1465 / 1465 450 / 450 Balance -508.333 / -508.333 417.583 / 417.583 270 / 270 Cumulative 08/12/25 11:11 thru 08/18/25 08:48 Intake Total 16961.417 Output Total 8841 Balance 1437.417 RT Ventilator Mngmt (Last Documented) Ventilator Ordered Settings Respiratory Rate 20 08/18/25 07:03 Ventilator - PT Measurements Respiratory Rate 20 Coding Level of Care Code 53294 SUB INP/OBS CARE 11/18MIN Diagnoses TIA (transient ischemic attack) G45.9 Left carotid stenosis I65.22 CAD (coronary artery disease) of artery bypass graft I25.810 Prediabetes R73.03 Diabetes mellitus E11.9 Hyperlipemia E78.5 HTN (hypertension), benign I10
--- NOTE | 2025-08-18 10:40 | Surgery Progress Note ---
Date of Service August 18, 2025 Assessment & Plan (1) S/P vascular surgery: Plan: uneventful redo left tcar. doing well may be d/c'd today and asa, brilinta and rapatha. Admission and Anticipated Discharge Date Admission Date: August 12, 2025 Subjective no complaints Physical Exam Constitutional: WD/WN, vitals as above Neck: trachea midline Respiratory: normal respiratory effort; no respiratory distress Cardiovascular: Rate/Rhythm: regular rate and regular rhythm Skin: + incision (dry and clean) Neurologic: CN's II-XI intact bilaterally and moves all extremities Results & Data Vital Signs (Past 12 Hours) Vital Signs Temp Pulse Resp BP BP Pulse Ox O2 Del Method 08/18/25 10:00 63 20 08/18/25 09:09 124/58 L 08/18/25 09:00 71 20 08/18/25 08:00 81 16 08/18/25 08:00 65 08/18/25 08:00 36.7 C 95/50 L 95 Room Air 08/18/25 07:58 95/50 L 08/18/25 07:58 95/50 L 08/18/25 07:36 81 22 08/18/25 07:03 65 20 Room Air 08/18/25 06:49 65 08/18/25 05:03 61 20 92 08/18/25 04:42 68 24 96 08/18/25 04:00 61 19 95 08/18/25 04:00 118/50 L 08/18/25 03:48 58 L 19 94 08/18/25 03:18 59 L 20 93 08/18/25 03:00 109/52 L 08/18/25 02:36 61 20 92 08/18/25 02:33 61 18 94 08/18/25 02:00 103/57 L 08/18/25 01:48 61 18 92 08/18/25 01:30 65 20 93 08/18/25 01:00 65 20 93 08/18/25 01:00 108/55 L 08/18/25 00:30 67 20 93 08/18/25 00:06 68 21 94 08/18/25 00:00 100/57 L 08/17/25 23:59 81 08/17/25 23:51 72 20 93 08/17/25 23:30 65 19 93 08/17/25 23:09 80 20 92 08/17/25 23:00 108/52 L 08/17/25 22:51 80 21 93 08/17/25 22:42 82 20 93
[2025-08-18 10:41] VITALS: BP 110/62; PULSE 73
[2025-08-18] MEDS ORDERED: STROKE PATIENT DISCHARGE STA (11:36)
--- NOTE | 2025-08-18 11:36 | Discharge Summary ---
Discharge Summary Date of Service August 18, 2025 Principal Dx & Hospital Course #1 = Principal Diagnosis (1) Thrombosis of left carotid artery: (2) TIA (transient ischemic attack): (3) Tobacco use: (4) Presence of coronary artery bypass graft stent: (5) Hyperlipemia: (6) HTN (hypertension), benign: Plan 80 year old male with recent left transcarotid artery revascularization with stent placement performed by Dr Blanco on July 10 presents to the ER with intermittent expressive dysphasia. Asymptomatic on admission. Did not have improvement following heparin drip, subsequently did well with left TCAR. To do as outpatient: 1: Follow-up with vascular surgery 2: Continue Brilinta/aspirin DAPT 3: Stop taking Plavix, this was replaced by Brilinta Left carotid artery stent thrombosis With history of tobacco use - s/p heparin gtt. Repeat CTA without significant change after 3 days No recurrent strokelike symptoms - s/p repeat L TCAR 08/17/2025. Recovered well in the ICU and did not require further blood pressure adjustments - Continue DAPT ASA/ticagrelor #Transient ischemic attack - Asymptomatic on admission, NIH 0 but had another slurring speech episode first night related to hypotension - Brain MRI without acute stroke but having intermittent expressive dysphasia suspect from reduced cerebral perfusion during periods of hypotension, likely exacerbated by taking lisinopril at home as BP normal without this - Stroke set was followed on admit; subsequent neurology evaluation was deferred as MRI did not show stroke and symptoms likely from from intermittent clots or poor perfusion (most likely the latter) - s/p repeat TCAR as noted No recurrent strokelike symptoms before discharge #Hypertension Lisinopril discontinued. - MTP/ISMN continued. #Hyperlipidemia - Continue Repatha as outpatient Statin intolerant #Dysuria - resolved #Pre-diabetes - HbA1C 5.8, diet and lifestyle changes recommended Dispo: ICU post procedure. Admission HPI Per Admitting Provider Pola Lyon is a 80 year old male who presents to the ER with intermittent expressive dysphasia. He reports this has been going on intermittently since . Slurring his words and couldn't remember things but no difficulty understand what others are saying. He knew what he wanted to say but couldn't say it. No vision changes, no change in swallowing, no facial droop, no change in hearing (has hearing aids), no change in weakness or sensation in extremities. He has noted a headache since yesterday on the back and left front if his neck since Wednesday which he has been taking acetaminophen for. Aching, non pulsating, current severity 3/10. His , son and daughter tried to get him to come to the ER yesterday but he refused. His also noted an episode of shortness of breath on Wednesday morning lasting for a minutes while in the car. No current shortness of breath. No chest pain, palpitations, claudication, leg swelling, fever, chills or gastrointestinal symptoms. He noticed dysuria 2 days ago but none currently. No prior stroke but he has a significant history of coronary artery disease with STEMI 2022 requiring CIERA to distal SVG to RCA and prior CABG x3 1996. He continues to smoke 6 cigars a day and drinks 3 shots of bourbon a day. Discharge Exam General: A&Ox3. NAD. Cooperative. HEENT: normocephalic. Vision and hearing grossly intact. No facial asymmetry. Pupils equal and reactive. L surgical site C/D/I with overlying dry dermibond. No hematoma appreciated. Pulm: CTAB A&P. -wheezes, -rales, -rhonchi. Symmetrical chest rise. No increase in work of breathing. No respiratory distress. Cardiac: RRR, SM present. Radial pulses intact and symmetrical. Abdominal: Nontender, nondistended, soft. BS present. Extremities: Warm and dry. Moves all extremities equally bedside. Hip flexion, ankle dorsiflexion/plantarflexion, rn anesthesiology strength, elbow flexion 5/5 bilaterally with symmetrical strength. Sensation intact to soft touch in hands and feet. Discharge Plan Discharge Items Patient Disposition: Home - Self-Care Reason For Visit: CAROTID ARTERY STENT THROMBOSIS Discharge Diagnosis: Carotid artery stent thrombosis Condition on Discharge: Good Activity: Resume your previous activity Non-emergency contact: Primary Care Provider and Surgeon Call non-emergency contact if: you have any medication questions, your symptoms worsen, your pain is not controlled and your pain is worsening Follow-up/Referrals: Prakash Blanco MD [Physician] - Gretta Fowler PA-C [Primary Care Provider] - Diet: Heart Healthy Add Attending Provider Instructions: You are seen in the hospital for transient strokelike symptoms, and subsequently found to have thrombosis of your carotid artery. He did not have clinical improvement after a heparin drip for 3 days, you subsequently underwent repeat surgical intervention which was successful in clearing your left carotid artery. Please continue aspirin and Brilinta as discussed with you by vascular surgery and as noted in your medications below. Please stop taking Plavix (clopidogrel); this has been replaced by Brilinta. Your lisinopril was discontinued. Please follow-up with your primary care doctor and vascular surgeon to reassess your blood pressure to help make further determinations if any further adjustments to your blood pressure medications are required in the future. Please continue Repatha as outpatient as discussed by vascular surgery If you develop any new or worsening symptoms including fever, chills, sweats, chest pain, chest pressure, difficulty breathing, uncontrolled nausea/vomiting, rash, wheezing, passing out or nearly passing out, bleeding, black/bloody bowel movements, or other new or concerning symptoms please call your primary care physician, or call 911 for re-evaluation in the emergency department if you are very concerned. Addtl Journal Clerk Provider Instructions: SPECIAL CARE INSTRUCTIONS: Diet: * You may return to previous diet. Medications: * Continue to take Aspirin, brilinta, and rapatha as directed. Incision Care: * You may shower, but do not rub incision. You may let the warm soapy water run over it. Be sure to dry the incision well after bathing. * Do not shave directly over the incision until it is healed. * DO NOT IMMERSE THE INCISION IN A TUB/POOL/etc. UNTIL HEALED. Restrictions: * Do not drive for at least one week or if you are still taking any narcotic pain medication. * Do not lift anything heavier than a gallon of milk for one week after going home. Possible Complications: * Numbness - It is normal to have some numbness around the incision. Numbness can extend beyond the incision to areas of the neck, ear and face. The numbness is due to bruising of nerves during the surgery and will gradually improve over a period of months. * Hoarseness/Difficulty Speaking and Swallowing - The bruising of nerves in the neck can also cause a hoarse voice, difficulty speaking or swallowing. This may improve over time, HOWEVER, if it continues for more than a few days please contact our office ([phone]). * Excessive Swelling - There will be some swelling immediately after surgery which usually resolves within one week. If you notice that the swelling is getting worse, notify your surgeon ([phone]). * Drainage/Bleeding - If there is any drainage or bleeding, it should be a very small amount (less than a teaspoon per day). If you have excessive bleeding or drainage from the incision, call your surgeon ([phone]) right away. ACTIVATION OF EMERGENCY MEDICAL SYSTEM: Call 911, immediately, if you experience any of the following: Warning Signs and Symptoms of Stroke: * Sudden numbness or weakness of the face, arm or leg, especially on one side of the body * Sudden confusion, trouble speaking or understanding * Sudden trouble seeing in one or both eyes * Sudden trouble walking, dizziness, loss of balance or coordination * Sudden severe headache with no cause Do not delay calling 911 if you experience any warning signs or symptoms of a stroke. Delay in seeking medical attention may affect what treatments can be given to you. Risk Factors for Stroke: You can reduce your chances of stroke by working with your medical provider to adopt a healthy lifestyle. Some specific ways to lower your chance of stroke are: * If you are a smoker, now is the time to stop smoking cigarettes * If you are diabetic, improve the control of your blood sugars * Avoid excessive amounts of alcohol * Control high blood pressure * Lose weight if you are overweight * Be sure to lead an active lifestyle * Eat a healthy diet low in salt, cholesterol and fat You should know about other risk factors for stroke that you are unable to control. These include: * Age 55 years or older * Male gender * Certain racial groups: , or / * Family History of Stroke, Mini stroke or Heart Attack * Sickle Cell Disease You will be receiving a call from the Vascular Surgery Nurse after you are discharged. FOLLOW UP VISIT: It is important for you to keep your follow up appointments with your medical provider. Keep any scheduled doctor appointments. Call [phone] to schedule a follow up appointment if one not already scheduled. Pending Studies at Discharge: No Stand-Alone Forms: My [facility] [employer], Smoking Cessation, Medications to Prevent Stroke Medications and DC Order Prescriptions: New ticagrelor [Brilinta] 90 mg Tablet 90 mg PO BID Qty: 60 6RF Continued aspirin 81 mg tablet,delayed release (DR/EC) 81 mg PO QAM allopurinol 100 mg tablet 100 mg PO QAM multivitamin [Daily Multi-Vitamin] Tablet 1 tab PO QAM Repatha SureClick 140 mg/mL pen injector 140 mg subcut DIRECTED Patient Comments: every 2 weeks Rx Instructions: EVERY 2 WEEKS isosorbide mononitrate 30 mg tablet extended release 24 hr 30 mg PO QAM Glucosamine Chondroitin 550-30-1 mg Capsule 1 cap PO QAM coQ10 (ubiquinol) 200 mg Capsule 200 mg PO QAM Trelegy Ellipta 100-62.5-25 mcg blister with device 1 inh INHALATION QAM metoprolol succinate 25 mg Tablet Extended Release 24 Hr 25 mg PO QAM Discontinued clopidogrel 75 mg tablet 75 mg PO QAM lisinopril 40 mg tablet 40 mg PO QAM Hold Instructions: Resume on 07/16/25. Hold until midodrine prescription is complete or blood pressure remains above 120 Discharge Orders: Discharge Order (Routine); Ordered 08/18/25 Ordered By: Varun Gomez Admission Data Admit Date/Time: 08/12/25 12:58 Attending Provider: Varun Gomez Admit Provider: Prabhu Ordaz Primary Care Provider: Gretta Fowler Other Providers: Prabhu Ordaz; Prakash Blanco; Gabriele Mahmood; Chris Plasencia; Clifton Ramirez; Daisha Levine; John Stephen; Lisa Yadav; Jeronimo Roberts; Eloy Hernández; Karine Sanchez Other Interventions: Discharge Summary Assessment (RN) Last Done: 08/18/25 10:39 Hospital Stay Data Consultations 08/12/25 13:03 ED Decision to Admit Stat 08/12/25 15:39 Consult Vascular Surgery Routine 08/17/25 13:20 Consult Affiliate Marketing Coordinator Routine Procedures Performed Operation Date: 08/17/25 10:00 Actual Procedures p Re-Do Left Transcarotid Artery Revascularization, Ultrasound Localization Right Common Femoral Vein(Left) - Prakash Blanco MD Diagnostic Imagining Performed 08/12/25 11:20 CT angio head w con Stat CT angio neck with con Stat CT head/brain wo con Stat 08/12/25 12:48 MRI Brain [MR brain wo con] Stat 08/15/25 13:00 CT angio neck with con Routine 08/16/25 08:00 CTA neck with con [CT angio neck with con] DAILY 08/17/25 07:34 EV angio carotid cerv LT Routine 08/17/25 07:35 US EV guide vascular access Routine Discharge Instructions Given to Patient (Per Discharging Provider) You are seen in the hospital for transient strokelike symptoms, and subsequently found to have thrombosis of your carotid artery. He did not have clinical improvement after a heparin drip for 3 days, you subsequently underwent repeat surgical intervention which was successful in clearing your left carotid artery. Please continue aspirin and Brilinta as discussed with you by vascular surgery and as noted in your medications below. Please stop taking Plavix (clopidogrel); this has been replaced by Brilinta. Your lisinopril was discontinued. Please follow-up with your primary care doctor and vascular surgeon to reassess your blood pressure to help make further determinations if any further adjustments to your blood pressure medications are required in the future. Please continue Repatha as outpatient as discussed by vascular surgery If you develop any new or worsening symptoms including fever, chills, sweats, chest pain, chest pressure, difficulty breathing, uncontrolled nausea/vomiting, rash, wheezing, passing out or nearly passing out, bleeding, black/bloody bowel movements, or other new or concerning symptoms please call your primary care physician, or call 911 for re-evaluation in the emergency department if you are very concerned. Total Time Total Time Spent Total Time Spent (In Minutes): 35 Coding Level of Care Code 21994 INP/OBS DISCH >30 MIN Diagnoses Thrombosis of left carotid artery I65.22 TIA (transient ischemic attack) G45.9 Tobacco use Z72.0 Presence of coronary artery bypass graft stent Z95.5; Z95.1 Hyperlipemia E78.5 HTN (hypertension), benign I10
== END 2025-08-18 12:27 | disposition home or self-care (01) | DRG 253 ==
LOC: ED 11:11 → SUATTDRO 12:58 → 2S 12:58 → 1E 08-17 13:20
PROC: EV.TCAR (2025-08-17 10:00)